=== PATIENT | female | born 1975 | race Caucasian/White ===

== ENCOUNTER 2021-01-05 16:11 | Emergency (ER) | payer OTHER, SELFPAY ==
[2021-01-05 16:24] VITALS: BP 125/71; PULSE 111; RESP 18; TEMP 37.9; O2SAT 98
--- NOTE | 2021-01-05 16:57 | ED.GENADULT ---
HPI - General Adult General Chief complaint: Upper Respiratory Infection Stated complaint: Sore Throat, burning inside of nose Time Seen by Provider: 01/05/21 16:36 Source: patient and RN notes reviewed Mode of arrival: ambulatory Limitations: no limitations History of Present Illness HPI narrative: Patient presents today complaining of an intermittent dry cough, intermittent sore throat with postnasal drainage, and burning inside her nose. The cough is worse when she is laying down to sleep. The burning and soreness in her throat is worse when she swallows. Patient also had a migraine yesterday that was helped with Excedrin. Patient called her PCP, who called her in some antibiotics for presumed strep throat. He also told her to come to the [facility] for rapid COVID-19 test and rapid strep test. She had not been vaccinated against COVID-19. States several people at her work have been sick with nonspecific illnesses. MD complaint: cough, sore throat Related Data Home Medications Medication Instructions Recorded Confirmed colesevelam 625 mg PO TID 01/05/21 01/05/21 norethindrone-ethin estradiol 1 tablet PO DAILY 01/05/21 01/05/21 [Nortrel 1/35 (28)] omeprazole 20 mg PO BID 01/05/21 01/05/21 Allergies Allergy/AdvReac Type Severity Reaction Status Date / Time PAIN MEDS Allergy Rash Uncoded 01/05/21 16:41 Review of Systems Review of Systems: Narrative: CONSTITUTIONAL: Denies body aches, fever, chills, or sweats. EYES: Denies visual changes, redness, or discharge. ENT: Denies rhinorrhea, congestion, or otalgia.+ Sore throat, postnasal drip, burning inside the nose CARDIOVASCULAR: Denies chest pain, palpitations, or edema. RESPIRATORY: Denies dyspnea.+ Dry cough GASTROINTESTINAL: Denies abdominal pain, nausea, vomiting, or diarrhea. GENITOURINARY: Denies dysuria or hematuria. SKIN: Denies rash, itching, or wounds. MUSCULOSKELETAL: Denies back pain, joint pain, or myalgia. NEUROLOGIC: Denies numbness, tingling, or weakness.+headache?resolved PSYCH: Denies depression or anxiety. PMFSH Comments At time of signature, I have reviewed and agree with nursing past medical, surgical, social and family history unless otherwise noted. Please see nursing chart for further information. There is no relevant family history pertinent to the presenting complaint Exam Narrative: Exam Narrative: GENERAL: Well-appearing, well-nourished, and in no acute distress. HEAD: Normocephalic, atraumatic. EYES: EOMI. No redness or drainage. Conjunctivae normal. ENT: Mucous membranes pink and moist. Nares clear. No rhinorrhea. TMs normal bilaterally. Throat normal. Uvula midline. NECK: Normal AROM. Supple. No lymphadenopathy. CHEST: No respiratory distress. Clear to auscultation. HEART: Regular rate and rhythm. No murmur appreciated. Normal peripheral pulses. EXTREMITIES: Normal range of motion. No edema. SKIN: Warm, dry, no rash. Capillary refill normal. Normal skin turgor. NEURO: No focal deficits. Alert and oriented x3. Gait steady. PSYCH: Normal affect. No signs of depression or anxiety. Course Course Emergency Course: COVID-19 PCR swab obtained. Vital Signs Vital signs: Vital Signs Temperature 100.2 F H 01/05/21 16:24 Pulse Rate 111 H 01/05/21 16:24 Respiratory Rate 18 01/05/21 16:24 Blood Pressure 125/71 01/05/21 16:24 Pulse Oximetry 98 01/05/21 16:24 Temperature 99.4 F 01/05/21 17:07 Pulse Rate 111 H 01/05/21 16:24 Respiratory Rate 18 01/05/21 16:24 Blood Pressure 125/71 01/05/21 16:24 Pulse Oximetry 98 01/05/21 16:24 Reviewed. Pt has been instructed to follow up with her PCP regarding her elevated blood pressure today. Medical Decision Making Differential Diagnosis Differential Diagnosis: URI, strep throat, rhinitis, sinusitis, viral syndrome, bronchitis, COVID-19 Vital Signs Vital Signs: Vital Signs Temperature 100.2 F H 01/05/21 16:24 Pulse Rate 111 H 01/05/21 16
[2021-01-05 17:07] VITALS: TEMP 37.4
[2021-01-06 19:08] LABS: SARS-CoV-2 RNA PCR Negative
== END 2021-01-05 17:07 | disposition home or self-care (01) ==
PROVIDERS: Emergency Provider Nurse Practitioner; PCP Physician Assistant
DX: J06.9 Acute upper respiratory infection, unspecified (principal); Z20.822 Contact with and (suspected) exposure to COVID-19; N80.9 Endometriosis, unspecified
CPT/HCPCS: 87081; 87880; 99213; C9803; G0463; U0003; U0005

== ENCOUNTER 2021-12-20 17:57 | Emergency (ER) | payer OTHER, SELFPAY ==
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
[2021-12-20 18:08] VITALS: BP 113/65; PULSE 65; RESP 16; TEMP 36.5; O2SAT 98
[2021-12-20 19:30] LABS: Basophils Absolute Auto 0.1 K/mm3 (0.0-0.1); Eosinophils Absolute Auto 0.3 K/mm3 (0-0.3); Eosinophils Percent Auto 3.2 % (0-4.4); Hemoglobin 12.7 g/dL (12.0-15.0); Immature Granulocyte Absolute 0.02 K/mm3 (0.00-0.031); Immature Granulocyte Percent A 0.3 % (0-0.5); Lymphocytes Absolute Auto 2.93 K/mm3 (0.9-3.2); Lymphocytes Percent Auto 37.8 % (18.3-44.2); Mean Corpuscular HGB Conc 35.3 g/dl (32-36); Mean Corpuscular Hemoglobin 31.5 pg (26-34); Mean Corpuscular Volume 89.3 fl (80-100); Mean Platelet Volume 10.6 fl (7.4-10.4); Monocytes Absolute Auto 0.6 K/mm3 (0.1-0.6); Monocytes Percent Auto 7.5 % (2.6-8.5); Neutrophils Absolute Auto 3.9 K/mm3 (1.3-6.7); Neutrophils Percent Auto 50.2 % (45.5-73.1); Platelet Count Result 198 k/mm3 (150-375); Red Blood Count 4.03 M/mm3 (4.2-5.4); Red Cell Distribution Width 13.1 % (11.5-14.5); White Blood Count 7.8 K/mm3 (4.5-10.0)
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
[2021-12-20 19:40] LABS: Alanine Aminotransferase 131 U/L (6-35); Albumin Level 3.9 g/dL (3.5-5.1); Alkaline Phosphatase 77 U/L (38-126); Anion Gap 4 mmol/L (8-16); Aspartate Amino Transferase 67 U/L (14-36); Bilirubin,Total 0.1 mg/dL (0.2-1.3); Blood Urea Nitrogen 9 mg/dL (7-17); Calcium 8.3 mg/dL (8.4-10.2); Carbon Dioxide 26 mmol/L (22-30); Chloride 107 mmol/L (98-107); Estimated Glomerular Filt Rate > 60; Glucose 96 mg/dL (65-110); Potassium 3.5 mmol/L (3.4-5.0); Sodium 137 mmol/L (137-145)
[2021-12-20 21:15] VITALS: BP 122/64; PULSE 76; RESP 18; O2SAT 99
== END 2021-12-20 21:16 | disposition home or self-care (01) ==
PROVIDERS: Physician Assistant; Emergency Provider Emergency Medicine; PCP Physician Assistant
DX: S39.91XA Unspecified injury of abdomen, initial encounter (principal); R10.11 Right upper quadrant pain; R74.01 Elevation of levels of liver transaminase levels; K21.9 Gastro-esophageal reflux disease without esophagitis; Z86.718 Personal history of other venous thrombosis and embolism; Z90.5 Acquired absence of kidney; Y04.2XXA Assault by strike against or bumped into by another person, initial encounter; Y93.F2 Activity, caregiving, lifting
CPT/HCPCS: 36415; 71046; 71100; 74177; 80053; 81025; 85025; 99284; Q9967

== ENCOUNTER 2022-01-30 16:46 | Emergency (ER) | payer OTHER, SELFPAY ==
--- NOTE | ~2022-01-30 | CT_ITS ---
EXAMINATION: CTA chest PE protocol DATE: 01/30/2022 19:04 CDT INDICATION: Left-sided chest pain TECHNIQUE: Computed tomographic angiography (CTA) of the chest was performed with 100 mL Omnipaque-35 0 intravenous contrast. The dose-length product was 156.25 mGy-cm. Maximum intensity projection 3D-re constructions of the aorta and other arteries were constructed by the technologist on a separate work station. COMPARISON: Chest x-ray dated 01/30/2022. FINDINGS: Study is technically adequate without evidence for pulmonary embolism. No evidence for aort ic aneurysm or dissection. No significant pleural or pericardial effusion. There is a partially visua lized right renal cyst. Status post cholecystectomy. No endobronchial lesions. No focal airspace dise ase. No pneumothorax. No pulmonary nodules or masses. No acute osseous abnormality. IMPRESSION: 1. No acute cardiopulmonary disease. No evidence for pulmonary embolism. Reviewed, dictated and finalized at location A.
--- NOTE | ~2022-01-30 | XR_ITS ---
EXAMINATION: XR chest 2V 01/30/2022 17:19 INDICATION: Left-sided chest pain PROCEDURE: 2 view chest COMPARISON: Comparison to multiple prior studies sequentially, with oldest reviewed study dated 09/2021. FINDINGS: The lungs are clear. The cardiomediastinal silhouette is within normal limits. There are no pleural effusions. There is no pneumothorax suspected. IMPRESSION: 1: NO ACUTE CARDIOPULMONARY DISEASE. Reviewed, dictated and finalized at location A.
[2022-01-30 16:51] VITALS: BP 117/69; PULSE 81; RESP 14; TEMP 36.9; O2SAT 98
--- NOTE | 2022-01-30 16:51 | ECG_ITS ---
Measurements Intervals [place] Rate: 76 P: 56 IA: 150 QRS: 2 QRSD: 80 T: 46 QT: 360 QTc: 406 Interpretive Statements SINUS RHYTHM WITH SINUS ARRHYTHMIA NORMAL ELECTROCARDIOGRAM NO PREVIOUS ECG AVAILABLE FOR COMPARISON Electronically Signed On 01-31-2022 13:52:53 CDT by Romeo Hammond M.D.
--- NOTE | 2022-01-30 17:06 | ED.CHESTPAIN ---
HPI - Chest Pain General Chief Complaint: Chest Pain <ANA Traore Last Filed: 01/30/22 21:03> Stated Complaint: CP, left arm numbness, dizzy <ANA Traore Last Filed: 01/30/22 21:03> Time Seen by Provider: 01/30/22 17:03 <ANA Traore Last Filed: 01/30/22 21:03> Source: patient <ANA Traore Last Filed: 01/30/22 21:03> Mode of arrival: ambulatory <ANA Traore Last Filed: 01/30/22 21:03> Limitations: no limitations <ANA Traore Last Filed: 01/30/22 21:03> History of Present Illness HPI narrative: This is a 46 year old female that presents to the ER for chest pain ongoing over the last couple of hours. Worse with deep breathing. Associated with lightheadedness, shortness of breath and tingling in the left arm. Denies fever. <ANA Traore Last Filed: 01/30/22 21:03> Related Data Home Medications: Home Medications Medication Instructions Recorded Confirmed colesevelam 625 mg tablet 625 mg PO TID 01/05/21 11/30/21 norethindrone 1 mg-ethinyl 1 tablet PO DAILY 01/05/21 11/30/21 estradiol 35 mcg tablet (Nortrel) omeprazole 20 mg capsule,delayed 20 mg PO BID 01/05/21 11/30/21 release <ANA Traore Last Filed: 01/30/22 21:03> Allergies/Adverse Reactions: Allergies Allergy/AdvReac Type Severity Reaction Status Date / Time PAIN MEDS Allergy Mild Hives Uncoded 01/30/22 16:57 PAIN MEDS Allergy Rash Uncoded 01/30/22 16:57 <ANA Traore Last Filed: 01/30/22 21:03> Review of Systems Review of Systems: CONSTITUTIONAL: Denies fever CARDIOVASCULAR: Reports chest pain, and edema. RESPIRATORY: Reports dyspnea. <ANA Traore Filed: 01/30/22 21:03> All systems reviewed & are unremarkable except as noted in HPI and below <Indu Bishop PA-C - Last Filed: 01/30/22 21:03> [facility] Past Medical History Medical History: Medical History (Updated 01/30/22 @ 21:03 by Indu Bishop PA-C) Abnormality of heart beat Chronic headaches GERD (gastroesophageal reflux disease) Hair loss History of adverse reaction to anesthesia Hx of deep venous thrombosis 2020 Mitral valve regurgitation SOB (shortness of breath) Vision changes Wears glasses <Indu Bishop PA-C - Last Filed: 01/30/22 21:03> Surgical History Surgical History: Surgical History (Updated 12/16/21 @ 11:08 by Grecia Jane, RT(R)) History of cholecystectomy History of hernia repair History of partial nephrectomy Hx of arthroscopy of left knee 1999 <Indu Bishop PA-C - Last Filed: 01/30/22 21:03> Family History Family History: Family History (Updated 12/16/21 @ 11:09 by Grecia Jane, RT(R)) Other Arthritis Asthma Diabetes mellitus Heart disease High cholesterol Hypertension <Indu Bishop PA-C - Last Filed: 01/30/22 21:03> Social History Social History: Social History (Updated 11/29/21 @ 09:14 by Lizzette Allison MA) Smoking status: Never smoker Substance use: never Gender identity (if verbalized by the patient): Female <Indu Bishop PA-C - Last Filed: 01/30/22 21:03> Exam Narrative: GENERAL: Well-appearing, well-nourished, and in no acute distress. HEAD: Normocephalic, atraumatic. EYES: EOMI. ENT: Mucous membranes moist. Oropharynx without tonsillar hypertrophy exudate or other lesions. Bilateral TMs pearly pappas non-bulging NECK: Supple. No adenopathy or masses. CHEST: Clear to auscultation. No respiratory distress. No wheezes rales or rhonchi HEART: Regular rate and rhythm. No murmur heard. Normal peripheral pulses. EXTREMITIES: Normal range of motion. Mild non-pitting edema to the left lower extremity. Normal DP pulses SKIN: Warm, dry, no rash. NEURO: No focal deficits. Alert and oriented x3. 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
[2022-01-30 17:19] LABS: Basophils Absolute Auto 0.1 K/mm3 (0.0-0.1); Basophils Percent Auto 0.9 % (0.2-1.2); Eosinophils Absolute Auto 0.5 K/mm3 (0-0.3); Eosinophils Percent Auto 4.9 % (0-4.4); Hemoglobin 13.2 g/dL (12.0-15.0); Immature Granulocyte Absolute 0.04 K/mm3 (0.00-0.031); Immature Granulocyte Percent A 0.4 % (0-0.5); Lymphocytes Absolute Auto 2.99 K/mm3 (0.9-3.2); Lymphocytes Percent Auto 28.3 % (18.3-44.2); Mean Corpuscular HGB Conc 34.7 g/dl (32-36); Mean Corpuscular Hemoglobin 31.3 pg (26-34); Mean Platelet Volume 10.3 fl (7.4-10.4); Monocytes Absolute Auto 0.6 K/mm3 (0.1-0.6); Monocytes Percent Auto 6.1 % (2.6-8.5); Neutrophils Absolute Auto 6.3 K/mm3 (1.3-6.7); Neutrophils Percent Auto 59.4 % (45.5-73.1); Platelet Count Result 217 k/mm3 (150-375); Red Blood Count 4.22 M/mm3 (4.2-5.4); Red Cell Distribution Width 13.1 % (11.5-14.5); White Blood Count 10.6 K/mm3 (4.5-10.0)
[2022-01-30 17:29] LABS: Prothrombin Time 13.2 Seconds (11.1-14.7)
[2022-01-30 17:30] LABS: Partial Thromboplastin Time 26.5 SECONDS (22.3-36.8)
[2022-01-30 17:31] LABS: Alanine Aminotransferase 35 U/L (6-35); Albumin Level 4.2 g/dL (3.5-5.1); Alkaline Phosphatase 73 U/L (38-126); Anion Gap 7 mmol/L (8-16); Aspartate Amino Transferase 31 U/L (14-36); Bilirubin,Total 0.3 mg/dL (0.2-1.3); Blood Urea Nitrogen 12 mg/dL (7-17); Calcium 8.7 mg/dL (8.4-10.2); Carbon Dioxide 26 mmol/L (22-30); Chloride 103 mmol/L (98-107); Estimated CRCL calculation 67 ml/min; Estimated Glomerular Filt Rate > 60; Glucose 119 mg/dL (65-110); Lipase 221 U/L (23-300); Potassium 3.4 mmol/L (3.4-5.0); Sodium 136 mmol/L (137-145)
[2022-01-30 17:32] LABS: D Dimer 0.33 ug/mL (<0.48)
[2022-01-30 17:40] LABS: NT Pro B Type Natriuretic Pept 35 pg/mL (5-100)
[2022-01-30 17:43] LABS: Troponin I < 0.012 ng/mL (0.000-0.034)
[2022-01-30] MEDS: SODIUM CHLORIDE 0.9% IV 1,000 ML 999 ML IV CONT (17:49)
[2022-01-30] MEDS: ASPIRIN 81 MG CHEWABLE TABLET 324 MG PO (17:49)
[2022-01-30 17:50] VITALS: BP 111/64; PULSE 75; RESP 18; O2SAT 98
[2022-01-30 19:22] VITALS: BP 118/71; PULSE 75; RESP 18; O2SAT 97
[2022-01-30 20:39] LABS: Troponin I < 0.012 ng/mL (0.000-0.034)
[2022-01-30 20:56] LABS: SARS-CoV-2 RNA PCR Negative
[2022-01-30 20:58] VITALS: BP 114/86; PULSE 71; RESP 16; O2SAT 98
[2022-01-30] MEDS: ENOXAPARIN 60 MG/0.6 ML SYRINGE 50 MG SUB-Q (20:59)
== END 2022-01-30 21:15 | disposition home or self-care (01) ==
PROVIDERS: Physician Assistant; Emergency Provider Preventive Medicine Aerospace Medicine; PCP Physician Assistant
DX: R07.9 Chest pain, unspecified (principal); Z20.822 Contact with and (suspected) exposure to COVID-19; I34.0 Nonrheumatic mitral (valve) insufficiency; K21.9 Gastro-esophageal reflux disease without esophagitis; Z86.718 Personal history of other venous thrombosis and embolism; Z90.5 Acquired absence of kidney
CPT/HCPCS: 36415; 71046; 71275; 80053; 83690; 83880; 84484; 85025; 85380; 85610; 85730; 93005; 96360; 96372; 99284; A9270; C9803; J1650; J7030; Q9967; U0003; U0005

== ENCOUNTER 2022-01-31 07:20 | Outpatient (CLI) | payer OTHER, SELFPAY ==
--- NOTE | ~2022-01-31 | US_ITS ---
EXAMINATION:US venous doppler LE LT INDICATION:Left lower extremity swelling TECHNIQUE: Multiple grayscale, color flow and Doppler images of the left lower extremity deep venous systems were obtained and reviewed. COMPARISON:No prior studies for comparison. FINDINGS: The common femoral, superficial femoral and popliteal veins demonstrate normal respiratory variation, augmentation and compressibility. Color flow is also seen within the posterior tibial, pe roneal, greater saphenous and profunda veins. IMPRESSION: 1: No lower extremity deep venous thrombosis. Reviewed, dictated and finalized at location B.
== END 2022-01-31 07:21 | disposition home or self-care (01) ==
PROVIDERS: PCP Physician Assistant; Visit Provider Physician Assistant
DX: Z86.718 Personal history of other venous thrombosis and embolism (principal)
CPT/HCPCS: 93971

== ENCOUNTER 2022-03-21 12:38 | Outpatient (CLI) | payer OTHER, SELFPAY ==
--- NOTE | ~2022-03-21 | US_ITS ---
EXAMINATION:US venous doppler LE LT INDICATION:History of DVT. Left leg swelling. TECHNIQUE: Multiple grayscale, color flow and Doppler images of the left lower extremity deep venous systems were obtained and reviewed. COMPARISON:Ultrasound dated 01/31/2022 FINDINGS: The common femoral, superficial femoral and popliteal veins demonstrate normal respiratory variation, augmentation and compressibility. Color flow is also seen within the posterior tibial, pe roneal, greater saphenous and profunda veins. IMPRESSION: 1: No lower extremity deep venous thrombosis. Reviewed, dictated and finalized at location A.
== END 2022-03-21 12:39 | disposition home or self-care (01) ==
LOC: ANHIMG 12:42
PROVIDERS: PCP Physician Assistant; Visit Provider Physician Assistant
DX: I82.409 Acute embolism and thrombosis of unspecified deep veins of unspecified lower extremity (principal)
CPT/HCPCS: 93971

== ENCOUNTER 2022-05-05 04:32 | Emergency (ER) | payer OTHER, SELFPAY ==
[2022-05-05] VITALS (7 sets, daily range): BP systolic 95–109; BP diastolic 50–73; PULSE 66–85; RESP 15–18; TEMP 36.8; O2SAT 99
--- NOTE | ~2022-05-05 | US_ITS ---
EXAMINATION: US venous doppler [facility] DATE: 05/05/2022 07:48 INDICATION: Left lower limb pain and swelling. TECHNIQUE: Grayscale ultrasound images without and with compression and Doppler ultrasound images of the left lower extremity veins were obtained. COMPARISON: Ultrasound 03/21/2022 FINDINGS: The visualized portions of left common femoral vein, profunda (deep) femoral vein, femoral vein, popl iteal vein, peroneal veins, posterior tibial veins, and greater saphenous vein outflow are patent. IMPRESSION: 1. No deep venous thrombosis. Reviewed, dictated and finalized at location A. CHANGER
--- NOTE | 2022-05-05 05:01 | ECG_ITS ---
Measurements Intervals [place] Rate: 80 P: 52 UT: 152 QRS: -2 QRSD: 88 T: 36 QT: 371 QTc: 429 Interpretive Statements SINUS RHYTHM RSR' IN V1 OR V2, PROBABLY NORMAL VARIANT BORDERLINE ECG COMPARED TO ECG 01/30/2022 16:55:10 NO SIGNIFICANT CHANGES Electronically Signed On 05-05-2022 6:49:01 MANUFACTURING MAINTENANCE MECHANIC by Bebeto Beal D.O.
[2022-05-05 05:16] LABS: Appearance Urine Clear (Clear); Bilirubin Urine Negative (Negative); Blood Urine 2+ (Negative); Color Urine Yellow (Yellow); Glucose Urine UA Negative (Negative); Ketones Urine Trace mg/dL (Negative); Leukocyte Esterase Ur Negative LEU/UL (Negative); Nitrate Urine Negative (Negative); Protein Urine Negative (Negative); Specific Grav Ur >= 1.030 (1.001-1.035); Urobilinogen Urine 0.2 mg/dL (<2.0); pH Urine 5.5 (5.0-9.0)
[2022-05-05 05:18] LABS: Basophils Absolute Auto 0.1 K/mm3 (0.0-0.1); Basophils Percent Auto 1.1 % (0.2-1.2); Eosinophils Absolute Auto 0.4 K/mm3 (0-0.3); Eosinophils Percent Auto 4.1 % (0-4.4); Hematocrit 36.1 % (37.0-47.0); Hemoglobin 12.5 g/dL (12.0-15.0); Immature Granulocyte Absolute 0.03 K/mm3 (0.00-0.031); Immature Granulocyte Percent A 0.3 % (0-0.5); Lymphocytes Percent Auto 34.9 % (18.3-44.2); Mean Corpuscular HGB Conc 34.6 g/dl (32-36); Mean Corpuscular Hemoglobin 31.7 pg (26-34); Mean Corpuscular Volume 91.6 fl (80-100); Mean Platelet Volume 10.6 fl (7.4-10.4); Monocytes Absolute Auto 0.6 K/mm3 (0.1-0.6); Monocytes Percent Auto 6.2 % (2.6-8.5); Neutrophils Absolute Auto 4.9 K/mm3 (1.3-6.7); Neutrophils Percent Auto 53.4 % (45.5-73.1); Platelet Count Result 226 k/mm3 (150-375); Red Blood Count 3.94 M/mm3 (4.2-5.4); Red Cell Distribution Width 12.7 % (11.5-14.5); White Blood Count 9.2 K/mm3 (4.5-10.0)
[2022-05-05 05:20] LABS: Mucus Urine Rare /lpf; RBC Urine 0-2 /hpf (0-2); Squamous Epithelial Cell Urine Rare /hpf (Few); WBC Urine 0-3 /hpf
--- NOTE | 2022-05-05 05:20 | ED.GENADULT ---
HPI - General Adult General Chief complaint: Extremity Problem,Nontraumatic <Adin Escobar MD - Last Filed: 05/05/22 05:21> Stated complaint: dizziness,lt leg pain <Adin Escobar MD - Last Filed: 05/05/22 05:21> Time Seen by Provider: 05/05/22 04:47 <Adin Escobar MD - Last Filed: 05/05/22 05:21> History of Present Illness HPI narrative: Patient 46-year-old female who presents the emergency department with chief complaint of left leg discomfort. Patient states that she has prior history of a DVT after she had COVID was treated with oral anticoagulants and has been off of those for some time patient states she has noticed has been having pain in her left lower extremity worsening IT band and also in the lower calf. The patient states that she is concerned that it may be a little bit more swollen than normal the patient reports that also she has been a little lightheaded and reports that she has had some heavy periods. <Adin Escobar MD - Last Filed: 05/05/22 05:21> Related Data Home medications: Home Medications Medication Instructions Recorded Confirmed colesevelam 625 mg tablet 625 mg PO TID 01/05/21 11/30/21 norethindrone 1 mg-ethinyl 1 tablet PO DAILY 01/05/21 11/30/21 estradiol 35 mcg tablet (Nortrel) omeprazole 20 mg capsule,delayed 20 mg PO BID 01/05/21 11/30/21 release <Adin Escobar MD - Last Filed: 05/05/22 05:21> Allergies/adverse reactions: Allergies Allergy/AdvReac Type Severity Reaction Status Date / Time PAIN MEDS Allergy Mild Hives Uncoded 05/05/22 04:52 PAIN MEDS Allergy Rash Uncoded 05/05/22 04:52 <Adin Escobar MD - Last Filed: 05/05/22 05:21> Review of Systems Review of Systems: A 10 system review of systems was completed on the patient and is negative except for what is stated in the HPI. Nursing and ancillary documentation was reviewed. <Adin Escobar MD - Last Filed: 05/05/22 05:21> [facility] Past Medical History Medical History: Medical History Abnormality of heart beat Chronic headaches GERD (gastroesophageal reflux disease) Hair loss History of adverse reaction to anesthesia Hx of deep venous thrombosis 2020 Mitral valve regurgitation SOB (shortness of breath) Vision changes Wears glasses <Adin Escobar MD - Last Filed: 05/05/22 05:21> Surgical History Surgical History: Surgical History History of cholecystectomy History of hernia repair History of partial nephrectomy Hx of arthroscopy of left knee 1999 <Adin Escobar MD - Last Filed: 05/05/22 05:21> Family History Family History: Family History Other Arthritis Asthma Diabetes mellitus Heart disease High cholesterol Hypertension <Adin Escobar MD - Last Filed: 05/05/22 05:21> Social History Social History: Social History Smoking status: Never smoker Substance use: never Gender identity (if verbalized by the patient): Female <Adin Escobar MD - Last Filed: 05/05/22 05:21> Exam Narrative: GENERAL: Well-appearing, well-nourished, and in no acute distress. HEAD: Normocephalic, atraumatic. EYES: PERRLA and EOMI. ENT: Nares clear, no rhinorrhea or epistaxis. Mucous membranes moist. NECK: Supple. CHEST: Clear to auscultation. No respiratory distress. HEART: Regular rate and rhythm. No murmur heard. Normal peripheral pulses. ABDOMEN: Soft, nontender, nondistended, normal active bowel sounds. EXTREMITIES: Normal range of motion. No edema. There is tenderness to palpation in the left calf and the left lateral thigh. SKIN: Warm, dry, no rash. NEURO: No focal deficits. Alert
[2022-05-05 05:25] LABS: Alanine Aminotransferase 22 U/L (6-35); Alkaline Phosphatase 75 U/L (38-126); Anion Gap 8 mmol/L (8-16); Aspartate Amino Transferase 29 U/L (14-36); Bilirubin,Total 0.3 mg/dL (0.2-1.3); Blood Urea Nitrogen 12 mg/dL (7-17); Calcium 8.6 mg/dL (8.4-10.2); Carbon Dioxide 24 mmol/L (22-30); Chloride 105 mmol/L (98-107); Estimated Glomerular Filt Rate > 60; Glucose 116 mg/dL (65-110); INR 1.1; Magnesium 1.9 mg/dL (1.6-2.3); Potassium 3.6 mmol/L (3.4-5.0); Prothrombin Time 13.5 Seconds (11.1-14.7); Sodium 137 mmol/L (137-145)
[2022-05-05 05:26] LABS: Partial Thromboplastin Time 28.1 SECONDS (22.3-36.8)
[2022-05-05 05:32] LABS: Add Urine Microscopic? YES
[2022-05-05 05:50] LABS: D Dimer 0.48 ug/mL (<0.48)
== END 2022-05-05 09:45 | disposition home or self-care (01) ==
PROVIDERS: Emergency Medicine; Emergency Provider Emergency Medicine
DX: M79.605 Pain in left leg (principal); I34.0 Nonrheumatic mitral (valve) insufficiency; K21.9 Gastro-esophageal reflux disease without esophagitis; Z90.5 Acquired absence of kidney; Z86.718 Personal history of other venous thrombosis and embolism; Z86.16 Personal history of COVID-19; R94.31 Abnormal electrocardiogram [ECG] [EKG]
CPT/HCPCS: 36415; 80053; 81001; 81025; 83735; 85025; 85380; 85610; 85730; 93005; 93971; 99284

== ENCOUNTER 2023-10-26 18:01 | Emergency (ER) | payer OTHER, SELFPAY ==
--- NOTE | 2023-10-26 18:05 | ED.URI ---
HPI - URI/Sore Throat General Chief Complaint: Upper Respiratory Infection Stated Complaint: upper respiratory/sinus Time Seen by Provider: 10/26/23 18:04 Source: patient Mode of arrival: ambulatory Limitations: no limitations History of Present Illness HPI Narrative: Patient is a 48-year-old female that presents with 5 days of congestion, sinus pressure and ear pain. Denies any fever, chills, nausea, vomiting, diarrhea. Patient states she has CT scan scheduled due to frequent infections. Was been taking Mucinex and Zicam. Related Data Home Medications Medication Instructions Recorded Confirmed colesevelam 625 mg tablet 625 mg PO TID 01/05/21 10/26/23 norethindrone 1 mg-ethinyl 1 tablet PO DAILY 01/05/21 10/26/23 estradiol 35 mcg tablet (Nortrel) omeprazole 20 mg capsule,delayed 20 mg PO BID 01/05/21 10/26/23 release ubrogepant 100 mg tablet (Ubrelvy) 100 mg PO DAILY PRN Migraine 10/26/23 10/26/23 Headache Allergies Allergy/AdvReac Type Severity Reaction Status Date / Time PAIN MEDS Allergy Mild Hives Uncoded 06/03/22 09:45 PAIN MEDS Allergy Rash Uncoded 06/03/22 09:45 Review of Systems Review of Systems: All systems reviewed & are unremarkable except as noted in HPI and below Constitutional: Constitutional: Denies body ache(s), Denies chills, Denies fatigue, Denies fever(s), Denies headache(s), Denies malaise and Denies weakness Eyes: Eyes: Denies blurry vision, Denies itchy eyes and Denies loss of vision ENT: Denies otalgia, Denies headache(s), Reports nasal congestion, Denies sinus pain and Denies sore throat Cardiovascular: Cardiovascular: Denies chest pain, Denies irregular heart rhythm and Denies dyspnea Respiratory: Respiratory: Reports cough and Denies dyspnea Gastrointestinal: Gastrointestinal: Denies abdominal pain, Denies diarrhea, Denies nausea and Denies vomiting Musculoskeletal: Musculoskeletal: Denies back pain, Denies myalgias and Denies arthralgias Integumentary/Breasts: Skin/Breast: Denies pruritus and Denies rash Neurologic: Denies headache(s), Denies loss of vision and Denies weakness Psychiatric: Psychiatric: Reports no additional psychiatric complaints Endocrine: Endocrine: Denies fatigue Allergic/Immunologic: Allergic/Immunologic: Denies itchy eyes PMFSH Past Medical History Medical History Abnormality of heart beat Chronic headaches GERD (gastroesophageal reflux disease) Hair loss History of adverse reaction to anesthesia Hx of deep venous thrombosis 2020 Mitral valve regurgitation SOB (shortness of breath) Vision changes Wears glasses Surgical History Surgical History History of cholecystectomy History of hernia repair History of partial nephrectomy Hx of arthroscopy of left knee 1999 Family History Family History Other Arthritis Asthma Diabetes mellitus Heart disease High cholesterol Hypertension Social History Social History Smoking status: Never smoker Substance use: never Living arrangements: with family Gender identity (if verbalized by the patient): Female Comments At time of signature, agree with nursing past medical, surgical, social and family history. There is no relevant family history pertinent to the presenting complaint. Exam Const: General: cooperative, healthy appearing, comfortable, no acute distress and well nourished Nutritional Appearance: well nourished Orientation/consciousness: patient oriented x3 Limitations: no limitations HENMT: Head: normal to inspection, normocephalic and atraumatic Ears: hearing grossly normal bilaterally, external ears normal, TM normal on the right, EAC's normal, no periauricular adenopathy and TM abnormal bulging on the left and erythematous on the le
[2023-10-26 18:14] VITALS: BP 122/70; PULSE 65; RESP 16; TEMP 37.1; O2SAT 98
[2023-10-26 18:19] VITALS: BP 122/70; PULSE 65; RESP 16; TEMP 37.1; O2SAT 98
== END 2023-10-26 18:44 | disposition home or self-care (01) ==
PROVIDERS: Emergency Provider Nurse Practitioner Family; PCP Physician Assistant
DX: H66.002 Acute suppurative otitis media without spontaneous rupture of ear drum, left ear (principal); K21.9 Gastro-esophageal reflux disease without esophagitis; Z86.718 Personal history of other venous thrombosis and embolism
CPT/HCPCS: 99213; G0463

== ENCOUNTER 2023-12-20 14:03 | Outpatient (CLI) | payer OTHER, SELFPAY ==
--- NOTE | ~2023-12-20 | US_ITS ---
EXAMINATION: US venous doppler LE RT DATE: 12/20/2023 14:55 INDICATION: Right lower limb pain. Other specified soft tissue disorders. TECHNIQUE: Grayscale ultrasound images without and with compression and Doppler ultrasound images of the right lower extremity veins were obtained. COMPARISON: None. FINDINGS: The visualized portions of right common femoral vein, profunda (deep) femoral vein, femoral vein, pop liteal vein, peroneal veins, posterior tibial veins, and greater saphenous vein outflow are patent. IMPRESSION: 1. No deep venous thrombosis. Reviewed, dictated and finalized at location A.
== END 2023-12-20 14:04 | disposition home or self-care (01) ==
PROVIDERS: PCP Physician Assistant; Visit Provider Physician Assistant
DX: M79.89 Other specified soft tissue disorders (principal)
CPT/HCPCS: 93971

== ENCOUNTER 2024-02-27 08:02 | Emergency (ER) | payer OTHER, SELFPAY ==
--- NOTE | ~2024-02-27 | XR_ITS ---
XR chest 2V Ordering provider: Carey Law NP History: 48 years Female with . cough +COVID positive on Monday . Comparison: January 30, 2022 FINDINGS: MEDIASTINUM: The cardiac silhouette is not enlarged. LUNGS: No infiltrates, effusions or pneumothorax. OTHER: No free air under the diaphragm. IMPRESSION: No acute cardiopulmonary pathology. Reviewed, dictated and finalized at location A.
[2024-02-27 08:12] VITALS: BP 132/71; PULSE 65; RESP 18; TEMP 37.6; O2SAT 98
--- NOTE | 2024-02-27 08:15 | ED.URI ---
HPI - URI/Sore Throat General Chief Complaint: Upper Respiratory Infection Stated Complaint: Cough/Chest Pain Time Seen by Provider: 02/27/24 08:20 Source: patient, RN notes reviewed and old records reviewed Mode of arrival: ambulatory Limitations: no limitations History of Present Illness HPI Narrative: 48-year-old female who presents to [facility] with complaints of testing positve for COVID 4 days ago did call her doctor and was prescribed a Zpack and also a medrol dose pack which she has been taking along with Zicam, Mucinex and Vitamin C. Patient states concern for pneumonia, reports harsh cough and pain to upper chest with cough, states that she tastes blood in her mouth and also has nasal congestion and headache. MD elicited complaint: cough, rhinorrhea, nasal congestion and other (chest pain with cough, headache) Onset (ago): day(s) (5) Severity: moderate Able to tolerate fluids by mouth: Yes Treatments prior to arrival: other (Mucinex,Zycam, and Vitamin C, Medrol dose pack and Zpack) Related Data Home Medications Medication Instructions Recorded Confirmed colesevelam 625 mg tablet 625 mg PO TID 01/05/21 10/26/23 norethindrone 1 mg-ethinyl 1 tablet PO DAILY 01/05/21 10/26/23 estradiol 35 mcg tablet (Nortrel) omeprazole 20 mg capsule,delayed 20 mg PO BID 01/05/21 10/26/23 release ubrogepant 100 mg tablet (Ubrelvy) 100 mg PO DAILY PRN Migraine 10/26/23 10/26/23 Headache venlafaxine 37.5 mg mg PO 02/27/24 capsule,extended release 24 hr Allergies Allergy/AdvReac Type Severity Reaction Status Date / Time PAIN MEDS Allergy Mild Hives Uncoded 06/03/22 09:45 PAIN MEDS Allergy Rash Uncoded 06/03/22 09:45 Review of Systems Review of Systems: CONSTITUTIONAL: Reports malaise, chills, sweats, or fever. EYES: Denies visual changes, redness, or discharge. ENT: Reports rhinorrhea, congestion, sinus pain, no otalgia and scratchy sore throat. CARDIOVASCULAR: reports chest pain with cough,no palpitations, or edema. RESPIRATORY: Reports cough.? Denies dyspnea.states chest discomfort with cough. GASTROINTESTINAL: Denies abdominal pain, nausea, vomiting, diarrhea SKIN: Denies rash or itching. MUSCULOSKELETAL: Reports some myalgia. NEUROLOGIC: Reports headache. All systems reviewed & are unremarkable except as noted in HPI and below PMFSH Past Medical History Medical History Abnormality of heart beat Chronic headaches GERD (gastroesophageal reflux disease) Hair loss History of adverse reaction to anesthesia Hx of deep venous thrombosis 2020 Mitral valve regurgitation SOB (shortness of breath) Vision changes Wears glasses Surgical History Surgical History History of cholecystectomy History of hernia repair History of partial nephrectomy Hx of arthroscopy of left knee 1999 Family History Family History Other Arthritis Asthma Diabetes mellitus Heart disease High cholesterol Hypertension Social History Social History Smoking status: Never smoker Substance use: never Living arrangements: with family Gender identity (if verbalized by the patient): Female Comments At time of signature, agree with nursing past medical, surgical, social and family history. There is no relevant family history pertinent to the presenting complaint Exam Narrative: GENERAL: Well-appearing, well-nourished, and in no acute distress. HEAD: Normocephalic EYES: PERRLA, conjunctivae clear ENT: Nares clear, turbinates edematous and erythematous, clear discharge. Mucous membranes moist. TM pearly pappas with dull light reflex bilaterally; no tragal tenderness. Oropharynx erythematous without lesions. Tonsils not enlarged and without exudate, no drooling, no hoarsen
== END 2024-02-27 09:02 | disposition home or self-care (01) ==
PROVIDERS: Emergency Provider Registered Nurse; PCP Physician Assistant
DX: R05.1 Acute cough (principal); M94.0 Chondrocostal junction syndrome [Tietze]; K21.9 Gastro-esophageal reflux disease without esophagitis; I34.0 Nonrheumatic mitral (valve) insufficiency; Z86.718 Personal history of other venous thrombosis and embolism; Z90.5 Acquired absence of kidney
CPT/HCPCS: 71046; 99213; G0463

== ENCOUNTER 2024-02-29 16:16 | Emergency (ER) | payer OTHER, SELFPAY ==
--- NOTE | ~2024-02-29 | XR_ITS ---
XR chest 2V Ordering provider: Venkata Sherman MD History: 48 years Female with . chest pain, covid + . Comparison: February 27, 2024 FINDINGS: MEDIASTINUM: The cardiac silhouette is not enlarged. LUNGS: No infiltrates, effusions or pneumothorax. OTHER: No free air under the diaphragm. IMPRESSION: No acute cardiopulmonary pathology. Reviewed, dictated and finalized at location A.
--- NOTE | 2024-02-29 16:18 | ECG_ITS ---
Test Date: 2024-02-29 16:22:32 Measurements Intervals [place] Rate: 62 P: 50 MT: 134 QRS: 0 QRSD: 86 T: 57 QT: 375 QTc: 381 Interpretive Statements SINUS RHYTHM POSSIBLE LEFT ATRIAL ENLARGEMENT POSSIBLE RIGHT VENTRICULAR CONDUCTION DELAY BASELINE ARTIFACT- I, II, III BORDERLINE ECG No previous ECG available for comparison Electronically Signed On 02-29-2024 16:26:03 CDT by Bebeto Beal D.O.
[2024-02-29 16:29] VITALS: BP 121/62; PULSE 61; RESP 15; TEMP 36.8; O2SAT 100
--- NOTE | 2024-02-29 16:31 | ED.CHESTPAIN ---
HPI - Chest Pain General Chief Complaint: Chest Pain <Indu Bishop PA-C - Last Filed: 03/03/24 14:34> Stated Complaint: chest pain <Indu Bishop PA-C - Last Filed: 03/03/24 14:34> Time Seen by Provider: 02/29/24 16:31 <Indu Bishop PA-C - Last Filed: 03/03/24 14:34> Focused HPI: This is a 48-year-old female that presents to the emergency department for chest pain. Ongoing since yesterday. Reports recently having COVID. GENERAL: Well-appearing, well-nourished, and in no acute distress. HEAD: Normocephalic, atraumatic. CHEST: Clear to auscultation. ?No respiratory distress. HEART: Regular rate and rhythm.? NEURO: ?Alert and oriented x3. Patient screened in triage and initial orders placed.? ?Additional care and disposition to be based upon?diagnostic testing and treatment. <Indu Bishop PA-C - Last Filed: 03/03/24 14:34> Source: patient <Segun Posey PA-C - Last Filed: 03/01/24 02:20> Mode of arrival: ambulatory <ANA Moise Last Filed: 03/01/24 02:20> Limitations: no limitations <ANA Moise Last Filed: 03/01/24 02:20> History of Present Illness HPI narrative: Patient endorses recent COVID diagnosis on Monday. Having chest pain for the past couple of days that is intermittent. No coronary artery disease history or history diabetes. <ANA Moise Last Filed: 03/01/24 02:20> Related Data Home Medications: Home Medications Medication Instructions Recorded Confirmed colesevelam 625 mg tablet 625 mg PO TID 01/05/21 10/26/23 norethindrone 1 mg-ethinyl 1 tablet PO DAILY 01/05/21 10/26/23 estradiol 35 mcg tablet (Nortrel) omeprazole 20 mg capsule,delayed 20 mg PO BID 01/05/21 10/26/23 release ubrogepant 100 mg tablet (Ubrelvy) 100 mg PO DAILY PRN Migraine 10/26/23 10/26/23 Headache venlafaxine 37.5 mg mg PO 02/27/24 capsule,extended release 24 hr <ANA Traore Last Filed: 03/03/24 14:34> Allergies/Adverse Reactions: Allergies Allergy/AdvReac Type Severity Reaction Status Date / Time PAIN MEDS Allergy Mild Hives Uncoded 02/29/24 16:36 PAIN MEDS Allergy Rash Uncoded 02/29/24 16:36 <Indu Bishop PA-C - Last Filed: 03/03/24 14:34> Review of Systems Review of Systems: All systems as dictated in HPI <ANA Moise Last Filed: 03/01/24 02:20> [facility] Past Medical History Medical History: Medical History Abnormality of heart beat Chronic headaches GERD (gastroesophageal reflux disease) Hair loss History of adverse reaction to anesthesia Hx of deep venous thrombosis 2020 Mitral valve regurgitation SOB (shortness of breath) Vision changes Wears glasses <ANA Traore Last Filed: 03/03/24 14:34> Surgical History Surgical History: Surgical History History of cholecystectomy History of hernia repair History of partial nephrectomy Hx of arthroscopy of left knee 1999 <ANA Traore Last Filed: 03/03/24 14:34> Family History Family History: Family History Other Arthritis Asthma Diabetes mellitus Heart disease High cholesterol Hypertension <ANA Traore Last Filed: 03/03/24 14:34> Social History Social History: Social History Smoking status: Never smoker Substance use: never Living arrangements: with family Gender identity (if verbalized by the patient): Female <ANA Traore Last Filed: 03/03/24 14:34> Exam Narrative: GENERAL: Well-appearing, well-nourished, and in no acute distress. HEAD: Normocephalic, atraumatic. EYES: PERRLA and EOMI. ENT: Nares clear, no rhinorrhea or epistaxis. Mucous membranes moist. Oropharynx without tonsillar hypertrop
[2024-02-29 16:32] LABS: Basophils Percent Auto 0.4 % (0.2-1.2); Hematocrit 41.6 % (37.0-47.0); Hemoglobin 13.6 g/dL (12.0-15.0); Immature Granulocyte Absolute 0.06 K/mm3 (0.00-0.031); Immature Granulocyte Percent A 0.6 % (0-0.5); Lymphocytes Absolute Auto 2.44 K/mm3 (0.9-3.2); Lymphocytes Percent Auto 24.7 % (18.3-44.2); Mean Corpuscular HGB Conc 32.7 g/dl (32-36); Mean Corpuscular Hemoglobin 28.2 pg (26-34); Mean Corpuscular Volume 86.1 fl (80-100); Mean Platelet Volume 10.3 fl (7.4-10.4); Monocytes Absolute Auto 0.5 K/mm3 (0.1-0.6); Monocytes Percent Auto 5.2 % (2.6-8.5); Neutrophils Absolute Auto 6.8 K/mm3 (1.3-6.7); Neutrophils Percent Auto 69.1 % (45.5-73.1); Platelet Count Result 305 k/mm3 (150-375); Red Blood Count 4.83 M/mm3 (4.2-5.4); Red Cell Distribution Width 13.8 % (11.5-14.5); White Blood Count 9.9 K/mm3 (4.5-10.0)
[2024-02-29 16:42] LABS: Prothrombin Time 13.9 Seconds (11.1-14.7)
[2024-02-29 16:43] LABS: Partial Thromboplastin Time 22.9 Seconds (22.3-36.8)
[2024-02-29 16:47] LABS: Alanine Aminotransferase 22 U/L (6-35); Albumin Level 4.3 g/dL (3.5-5.1); Alkaline Phosphatase 54 U/L (38-126); Anion Gap 13 mmol/L (4-12); Aspartate Amino Transferase 26 U/L (14-36); Bilirubin,Total 0.4 mg/dL (0.2-1.3); Blood Urea Nitrogen 16 mg/dL (7-17); Calcium 8.9 mg/dL (8.4-10.2); Carbon Dioxide 23 mmol/L (22-30); Chloride 102 mmol/L (98-107); Estimated Glomerular Filt Rate > 60; Glucose 139 mg/dL (65-110); Lipase 365 U/L (23-300); Potassium 3.3 mmol/L (3.4-5.0); Sodium 138 mmol/L (137-145)
[2024-02-29 16:57] LABS: Troponin I < 0.012 ng/mL (0.000-0.034)
--- NOTE | 2024-02-29 19:42 | ECG_ITS ---
Test Date: 2024-02-29 19:48:21 Measurements Intervals [place] Rate: 56 P: 48 NM: 131 QRS: -2 QRSD: 81 T: 47 QT: 405 QTc: 393 Interpretive Statements SINUS BRADYCARDIA POSSIBLE LEFT ATRIAL ENLARGEMENT POSSIBLE RIGHT VENTRICULAR CONDUCTION DELAY VOLTAGE CRITERIA FOR LVH BASELINE ARTIFACT- I, II, III, AVR, AVL, AVF BORDERLINE ECG Compared to ECG 02/29/2024 16:22:32 HEART RATE HAS DECREASED Electronically Signed On 03-01-2024 06:38:10 CDT by Bebeto Bela D.O.
[2024-02-29 19:49] VITALS: BP 122/62; PULSE 53; TEMP 37.1; O2SAT 100
[2024-02-29 20:17] LABS: Troponin I < 0.012 ng/mL (0.000-0.034)
[2024-03-01 00:40] VITALS: PULSE 50
[2024-03-01 00:41] VITALS: BP 138/67; PULSE 50; RESP 12; TEMP 36.8; O2SAT 100
--- NOTE | 2024-03-01 01:00 | ED.CHESTPAIN ---
HPI - Chest Pain General Chief Complaint: Chest Pain Stated Complaint: chest pain Time Seen by Provider: 02/29/24 16:31 Related Data Home Medications Medication Instructions Recorded Confirmed colesevelam 625 mg tablet 625 mg PO TID 01/05/21 10/26/23 norethindrone 1 mg-ethinyl 1 tablet PO DAILY 01/05/21 10/26/23 estradiol 35 mcg tablet (Nortrel) omeprazole 20 mg capsule,delayed 20 mg PO BID 01/05/21 10/26/23 release ubrogepant 100 mg tablet (Ubrelvy) 100 mg PO DAILY PRN Migraine 10/26/23 10/26/23 Headache venlafaxine 37.5 mg mg PO 02/27/24 capsule,extended release 24 hr Allergies Allergy/AdvReac Type Severity Reaction Status Date / Time PAIN MEDS Allergy Mild Hives Uncoded 02/29/24 16:36 PAIN MEDS Allergy Rash Uncoded 02/29/24 16:36 PMFSH Past Medical History Medical History Abnormality of heart beat Chronic headaches GERD (gastroesophageal reflux disease) Hair loss History of adverse reaction to anesthesia Hx of deep venous thrombosis 2020 Mitral valve regurgitation SOB (shortness of breath) Vision changes Wears glasses Surgical History Surgical History History of cholecystectomy History of hernia repair History of partial nephrectomy Hx of arthroscopy of left knee 1999 Family History Family History Other Arthritis Asthma Diabetes mellitus Heart disease High cholesterol Hypertension Social History Social History Smoking status: Never smoker Substance use: never Living arrangements: with family Gender identity (if verbalized by the patient): Female Course Vital Signs Vital signs: Vital Signs Temperature 98.3 F 02/29/24 16:29 Pulse Rate 61 02/29/24 16:29 Respiratory Rate 15 02/29/24 16:29 Blood Pressure 121/62 02/29/24 16:29 Pulse Oximetry 100 02/29/24 16:29 Oxygen Delivery Room Air 02/29/24 16:29 Temperature 98.3 F 03/01/24 00:41 Pulse Rate 50 L 03/01/24 00:41 Respiratory Rate 12 03/01/24 00:41 Blood Pressure 138/67 03/01/24 00:41 Pulse Oximetry 100 03/01/24 00:41 Oxygen Delivery Room Air 03/01/24 00:41 MDM - Chest Pain MDM Narrative Medical decision making narrative: This is a 48-year-old female who presents to the ED with chief complaint of pleuritic chest pain with recent COVID diagnosis. Vitals are normal. Exam is benign. Lungs are clear. No respiratory distress. EKG shows normal sinus rhythm. Lab work is grossly unremarkable other than slightly low potassium at 3.3.. 0 and 3 hour troponins are undetectable. Chest x-ray normal. Wells score for PE is 0. Very low suspicion for acute pulmonary embolism. Presentation is consistent with pleurisy with recent viral illness. No evidence of pneumonia. Rx for naproxen given. Pt will be discharged in stable condition. Return precautions given and supportive measures discussed. Pt is understanding and agreeable with plan for discharge and follow-up with PCP. Wells' Criteria for Pulmonary Embolism from [email or web address] on 03/01/2024 All calculations should be rechecked by clinician prior to use RESULT SUMMARY: 0.0 points Low risk group: 1.3% chance of PE in an ED population. Another study assigned scores <=4 as ?PE Unlikely? and had a 3% incidence of PE. INPUTS: Clinical signs and symptoms of DVT ?> 0 = No PE is #1 diagnosis OR equally likely ?> 0 = No Heart rate > 100 ?> 0 = No Immobilization at least 3 days OR surgery in the previous 4 weeks ?> 0 = No Previous, objectively diagnosed PE or DVT ?> 0 = No Hemoptysis ?> 0 = No Malignancy w/ treatment within 6 months or palliative ?> 0 = No Lab Data 02/29/24 16:27 02/29/24 16:27 Labs: Lab Results 02/29/24 02/29/24 Range/Units 16:27 19
== END 2024-03-01 01:15 | disposition home or self-care (01) ==
PROVIDERS: Emergency Medicine; Emergency Provider Physician Assistant; PCP Physician Assistant
DX: R09.1 Pleurisy (principal); K21.9 Gastro-esophageal reflux disease without esophagitis; Z86.718 Personal history of other venous thrombosis and embolism; I34.0 Nonrheumatic mitral (valve) insufficiency; Z86.16 Personal history of COVID-19; Z90.49 Acquired absence of other specified parts of digestive tract; Z90.5 Acquired absence of kidney; Z79.899 Other long term (current) drug therapy; Z79.3 Long term (current) use of hormonal contraceptives; R94.31 Abnormal electrocardiogram [ECG] [EKG]; R00.1 Bradycardia, unspecified
CPT/HCPCS: 36415; 71046; 80053; 83690; 84484; 85025; 85610; 85730; 93005; 99284

== ENCOUNTER 2024-05-07 08:02 | Emergency (ER) | payer OTHER, SELFPAY ==
--- NOTE | ~2024-05-07 | XR_ITS ---
EXAMINATION: XR chest 2V DATE: 05/07/2024 09:16 INDICATION: Cough and pneumonia TECHNIQUE: PA and lateral views of the chest were obtained. COMPARISON: Chest radiograph dated 02/29/24 FINDINGS: The lungs remain clear with no focal airspace opacities, pulmonary edema, pleural effusion or pneumot horax. The cardiomediastinal silhouette is normal. The cystectomy clips in the right upper quadrant. Mild thoracic spondylosis. IMPRESSION: 1. No acute cardiopulmonary disease. Reviewed, dictated and finalized at location B. MOTIVE WHOLESALE PARTS ADVISOR
--- NOTE | 2024-05-07 08:11 | ED_ITS ---
HPI - URI/Sore Throat General Chief Complaint: Upper Respiratory Infection Stated Complaint: Sore Throat/Cough Time Seen by Provider: 05/07/24 08:11 Source: patient, RN notes reviewed and old records reviewed Mode of arrival: ambulatory Limitations: no limitations History of Present Illness HPI Narrative: 48-year-old female to Express Care with complaint of sore throat and cough as well as nasal congestion. Patient denies fever. Patient reports taking Delsym without relief. Patient reports history of autoimmune disease, DVT, Raynaud's, ulcerative colitis, COVID, pneumonia. Patient denies cough being productive, shortness of breath, chest pain, fever. Patient able to tolerate fluids by mouth. Patient resting comfortably in exam room in no acute distress. Respirations even and nonlabored. Patient able to speak in complete sentences without difficulty. Related Data Home Medications Medication Instructions Recorded Confirmed norethindrone 1 mg-ethinyl 1 tablet PO DAILY 01/05/21 10/26/23 estradiol 35 mcg tablet (Nortrel) Allergies Allergy/AdvReac Type Severity Reaction Status Date / Time PAIN MEDS Allergy Mild Hives Uncoded 02/29/24 16:36 PAIN MEDS Allergy Rash Uncoded 02/29/24 16:36 Review of Systems Review of Systems: All systems reviewed & are unremarkable except as noted in HPI and below Constitutional: Constitutional: Reports no additional constitutional complaints Eyes: Eyes: Reports no additional eye complaints ENT: Reports as per HPI, Reports nasal congestion and Reports sore throat Cardiovascular: Cardiovascular: Reports no additional cardiovascular complaints, Denies chest pain and Denies dyspnea Respiratory: Respiratory: Reports no additional respiratory complaints, Reports cough and Denies dyspnea Musculoskeletal: Musculoskeletal: Reports no additional musculoskeletal complaints Neurologic: Reports system reviewed and no additional complaints, except as documented Psychiatric: Psychiatric: Reports no additional psychiatric complaints [facility] Past Medical History Medical History Abnormality of heart beat Chronic headaches GERD (gastroesophageal reflux disease) Hair loss History of adverse reaction to anesthesia Hx of deep venous thrombosis 2020 Mitral valve regurgitation SOB (shortness of breath) Vision changes Wears glasses Surgical History Surgical History History of cholecystectomy History of hernia repair History of partial nephrectomy Hx of arthroscopy of left knee 1999 Family History Family History Other Arthritis Asthma Diabetes mellitus Heart disease High cholesterol Hypertension Social History Social History Smoking status: Never smoker Substance use: never Living arrangements: with family Gender identity (if verbalized by the patient): Female Comments At the time of my signature, I reviewed and agree with the nursing past medical, surgical, social, and family history. There is no relevant family history pertinent to the patient complaint. Exam Const: General: cooperative, comfortable, no acute distress, alert, tired appearing and well nourished Nutritional Appearance: well nourished Orientation/consciousness: patient oriented x3 Limitations: no limitations HENMT: Head: normal to inspection Ears: external ears normal Face/Nose/Sinus: Normal external nose present, Normal nares present, normal facial exam, No erythema and No edema Face and sinus: normal facial exam, no erythema and no edema Mouth: Yes Normal oral and palatal mucosa present Throat: posterior oropharynx abnormal erythema and postnasal drainage Eyes: General: appearance normal, both eyes and all related structures Neck: Neck: normal visual inspection, full ROM and no meningeal signs Lymphatic: no lymphadenopathy noted and no lymphedema noted Chest: Chest palpation & inspection: normal inspection of the chest Resp: Effort & Inspection: normal respiratory effort, able to speak in complete sentences and Actively coughing actively coughing Auscultation: clear to auscultation bilaterally Cardio: Jugular venous distension: no JVD Rate: regular rate Rhythm: regular rhythm Back/Spine/Pelvis: Cervical Spine: cervical ROM normal Skin: General skin exam: normal color, no rashes or lesions noted and turgor normal Neuro: General: patient oriented x3, gait normal, moves all extremities and no meningeal signs Speech: normal speech Gait exam (Neuro): Normal gait present Extrem: General: normal to inspection, full ROM and capillary refill normal Psych: Appearance: grossly normal and well kempt Course Course Emergency Course: Some parts of this dictation were generated by voice recognition software and may contain typographical and/or grammatical inaccuracies. Level of Care: Express Care Visit Vital Signs Vital signs: Vital Signs Temperature 36.8 C 05/07/24 08:12 Pulse Rate 85 05/07/24 08:12 Respiratory Rate 19 05/07/24 08:12 Blood Pressure 112/65 05/07/24 08:12 Pulse Oximetry 99 05/07/24 08:12 Oxygen Delivery Room Air 05/07/24 08:12 Temperature 36.8 C 05/07/24 08:12 Pulse Rate 85 05/07/24 08:12 Respiratory Rate 19 05/07/24 08:12 Blood Pressure 112/65 05/07/24 08:12 Pulse Oximetry 99 05/07/24 08:12 Oxygen Delivery Room Air 05/07/24 08:12 reviewed MDM - URI/Sore Throat MDM Narrative Medical decision making narrative: 48-year-old female to Express Care with complaint of sore throat and cough as well as nasal congestion. Patient denies fever. Patient reports taking Delsym without relief. Patient reports history of autoimmune disease, DVT, Raynaud's, ulcerative colitis, COVID, pneumonia. Patient denies cough being productive, shortness of breath, chest pain, fever. Patient able to tolerate fluids by mouth. Patient resting comfortably in exam room in no acute distress. Respirations even and nonlabored. Patient able to speak in complete sentences without difficulty. On exam, posterior oropharynx erythematous with postnasal drainage. Cough present during exam. Patient negative for strep in clinic. Culture sent. Radiology of chest negative for acute findings in clinic. Patient is sitting comfortably in exam room nontoxic in appearance. Patient appropriate for outpatient treatment and follow-up. Discharge instructions reviewed with patient, as well as provided in writing per nursing staff. The instructions also include specific and strict return/GO TO THE ER as well as f/u information. All questions have been answered, and the patient deny any further questions with discharge and discharge plan. Some parts of this dictation were generated by voice recognition software and may contain typographical and/or grammatical inaccuracies. Differential Diagnosis Differential diagnosis: Likely upper respiratory infection, croup, otitis media, sinusitis, viral infection, bronchitis, influenza and pharyngitis Lab Data Labs: Lab Results 05/07/24 Range/Units 08:18 POC Grp A Strep Screen Negative (Negative) Imaging Data Radiologist's impression: Ordering Physician: Katey Sanches APRN Date of Service: 05/07/24 Procedure(s): XR chest 2V Accession Number(s): [id number] cc: Katey Sanches APRN; Buzz, Griffin PEREZ~ EXAMINATION: XR chest 2V DATE: 05/07/2024 09:16 INDICATION: Cough and pneumonia TECHNIQUE: PA and lateral views of the chest were obtained. COMPARISON: Chest radiograph dated 02/29/24 FINDINGS: The lungs remain clear with no focal airspace opacities, pulmonary edema, pleural effusion or pneumothorax. The cardiomediastinal silhouette is normal. The cystectomy clips in the right upper quadrant. Mild thoracic spondylosis. IMPRESSION: 1. No acute cardiopulmonary disease. Discharge Plan Discharge Clinical Impression: Upper respiratory infection Patient Disposition: Home, Self-Care Condition: Stable Instructions: Upper Respiratory Infection (DC) Additional Instructions: Your rapid strep swab was negative today at [facility]. A throat culture will be sent to the laboratory for further testing. If the test is positive, you will receive a phone call within 48 hours and an appropriate antibiotic will be initiated at that time. -Alternate Tylenol and Motrin per package directions for fever or pain. -Antihistamine medication such as Benadryl at night and Zyrtec/Claritin/Maral during the day can help improve symptoms. -Use Flonase twice a day for 5 days then daily to help reduce the inflammation and dry up your sinuses. -You can also use Sudafed or Mucinex. Be sure to drink plenty of water with these medications at least 8 ounces with every dose and it is important to drink 8 to 10 glasses of water per day. Water is a natural decongestant -Eat and drink things that are easy to swallow, like tea or soup, or popsicles. -Oral rinses such as: Salt water gargles and/or may use topical anesthetic (eg. Chloraseptic spray) or lozenges to relieve dryness or throat pain). -Frequent hand washing or hand certified professional midwife is one of the best ways to prevent spread of infection. -Using a vaporizer or humidifier at night will also help thin secretions and help with coughing up phlegm. -Follow up with primary care provider in 2-3 days if condition is not improving; or seek ER visit if you have trouble breathing, cannot drink enough fluids, have muffled voice, difficulty opening your mouth, or severe swelling. Prescriptions: No Action Nortrel (28) 1-35 mg-mcg tablet 1 tablet PO DAILY Follow-up/Referrals: Buzz,ANCA Umaña [Primary Care Provider] - Stand Alone Forms: Work/School Release IP
[2024-05-07 08:12] VITALS: BP 112/65; PULSE 85; RESP 19; TEMP 36.8; O2SAT 99
[2024-05-07 08:20] LABS: EDSTREPNEGPOS1 Negative (Negative)
== END 2024-05-07 09:37 | disposition home or self-care (01) ==
PROVIDERS: Emergency Provider Nurse Practitioner Family; PCP Physician Assistant
DX: J06.9 Acute upper respiratory infection, unspecified (principal)
CPT/HCPCS: 71046; 87081; 87880; 99213; G0463

== ENCOUNTER 2024-05-11 20:29 | Emergency (ER) | payer OTHER, SELFPAY ==
--- NOTE | ~2024-05-11 | XR_ITS ---
EXAMINATION: XR chest 1V portable DATE: 05/11/2024 22:17 INDICATION: Chest pain TECHNIQUE: frontal view of the chest was obtained. COMPARISON: Chest radiograph dated 05/07/2024 FINDINGS: The lungs remain clear with no focal airspace opacities, pulmonary edema, pleural effusion or pneumot horax. The cardiomediastinal silhouette is normal. Cholecystectomy clips in right upper quadrant. IMPRESSION: 1. No acute cardiopulmonary disease. Reviewed, dictated and finalized at location A. ICAL APPLICATOR
--- NOTE | ~2024-05-11 | CT_ITS ---
EXAMINATION: CTA chest PE protocol DATE: 05/11/2024 23:01 INDICATION: Chest pain TECHNIQUE: Computed tomography (CT) pulmonary angiogram of the chest was performed with 100 mL Omnipa que-350 intravenous contrast. Additional 3D reconstructions utilizing coronal maximum intensity proje ction (MIP) were performed. Automated exposure control and iterative reconstruction technique were em ployed. The dose-length product was 140.87 mGy-cm. COMPARISON: 01/30/2022 FINDINGS: No pulmonary embolism. No pneumonia, pulmonary edema, pleural effusion or pneumothorax. Heart size is normal. No pericardial effusion. Thoracic aorta is normal in caliber with no dissection. No patholog ically enlarged thoracic lymphadenopathy. Mild dilation the common bile duct to 9 mm likely related t o prior cholecystectomy and second trimester clips the gallbladder fossa. No intrahepatic biliary carroll sandro dilation. Mild thoracic spondylosis. IMPRESSION: 1. No pulmonary embolism or other acute cardiopulmonary disease. Reviewed, dictated and finalized at location A. WIRER
[2024-05-11 20:39] VITALS: BP 109/66; PULSE 60; RESP 20; TEMP 36.6; O2SAT 100
--- NOTE | 2024-05-11 20:51 | ECG_ITS ---
Test Date: 2024-05-11 21:16:31 Measurements Intervals [place] Rate: 56 P: 42 NJ: 138 QRS: -7 QRSD: 84 T: 16 QT: 420 QTc: 408 Interpretive Statements SINUS BRADYCARDIA POSSIBLE RIGHT VENTRICULAR CONDUCTION DELAY VOLTAGE CRITERIA FOR LVH BASELINE ARTIFACT- I, II, III, AVR, AVL, AVF, V4-V5 BORDERLINE ECG Compared to ECG 02/29/2024 19:48:21 No significant changes Electronically Signed On 05-11-2024 22:25:06 AVIONICS SYSTEMS TECHNICIAN by Bebeto Beal D.O.
--- NOTE | 2024-05-11 21:43 | ED_ITS ---
HPI - SOB/Dyspnea General Chief Complaint: Shortness of Breath/Dyspnea Stated Complaint: sob Time Seen by Provider: 05/11/24 21:27 History of Present Illness HPI Narrative: 48-year-old female presenting to the emergency department chief complaint of chest pain and difficulty in breathing. She has also been having some hoarseness, sore throat and headache for 6 days. Was seen by her primary care provider prescribed azithromycin Z-Casey as well as a Medrol Dosepak. She has completed both of these without any improvement her symptoms. She has a history of an unprovoked left lower extremity DVT and not present any kind of anticoagulation medications. She states she has a history of autoimmune disease as being worked up by snowboard designer on outpatient basis at [facility]. She was oth erwise in her normal state of health past last week states that her chest pain shortness a breath concerning and she was told that she might need a CT angiography. Her insurance did not approve this on outpatient basis according to herself. Denies any measurable fevers, back pain, abdominal pain, diarrhea, constipation, nausea vomiting. Has had multiple bouts of COVID disease in the past. Related Data Home Medications Medication Instructions Recorded Confirmed norethindrone 1 mg-ethinyl 1 tablet PO DAILY 01/05/21 10/26/23 estradiol 35 mcg tablet (Nortrel) Allergies Allergy/AdvReac Type Severity Reaction Status Date / Time PAIN MEDS Allergy Mild Hives Uncoded 05/11/24 20:51 PAIN MEDS Allergy Rash Uncoded 05/11/24 20:51 Review of Systems Review of Systems: as reviewed above in HPI [facility] Past Medical History Medical History Abnormality of heart beat Chronic headaches GERD (gastroesophageal reflux disease) Hair loss History of adverse reaction to anesthesia Hx of deep venous thrombosis 2020 Mitral valve regurgitation SOB (shortness of breath) Vision changes Wears glasses Surgical History Surgical History History of cholecystectomy History of hernia repair History of partial nephrectomy Hx of arthroscopy of left knee 1999 Family History Family History Other Arthritis Asthma Diabetes mellitus Heart disease High cholesterol Hypertension Social History Social History Smoking status: Never smoker Substance use: never Living arrangements: with family Gender identity (if verbalized by the patient): Female Exam Narrative: GENERAL: [Well-appearing, well-nourished, and in no acute distress.] HEAD: [Normocephalic, atraumatic.] EYES: [PERRLA and EOMI.] ENT: posterior or pharyngeal erythema with some postnasal drip seen, no epistaxis, nares are clear. No otitis in either ear canal. , dry mucous membranes. NECK: Supple. CHEST: [Clear to auscultation. No respiratory distress.] HEART: [Regular rate and rhythm]. No murmur heard. [Normal peripheral pulses.] ABDOMEN: [Soft, nondistended], [nontender], [No rigidity or guarding] EXTREMITIES: Normal range of motion. [No edema.] SKIN: Warm, dry, no rash. NEURO: [No focal deficits]. Alert and oriented [x3.] PSYCH: [Normal mood and affect.] Course Vital Signs Vital signs: Vital Signs Temperature 36.6 C 05/11/24 20:39 Pulse Rate 60 05/11/24 20:39 Respiratory Rate 20 05/11/24 20:39 Blood Pressure 109/66 05/11/24 20:39 Pulse Oximetry 100 05/11/24 20:39 Oxygen Delivery Room Air 05/11/24 20:39 Temperature 37.3 C 05/11/24 21:45 Pulse Rate 63 05/11/24 21:45 Respiratory Rate 17 05/11/24 21:45 Blood Pressure 110/67 05/11/24 21:45 Pulse Oximetry 99 05/11/24 21:45 Oxygen Delivery Room Air 05/11/24 21:41 MDM - SOB/Dyspnea MDM Narrative Medical decision making narrative: 48-year-old female with history of a left lower extremity DVT, autoimmune disorders according to the patient. She has received treated for a upper respiratory infection and bronchitis, pleurisy with Medrol Dosepak and azithromycin without any relief of her symptoms. Today she is complaining of chest pain shortness a breath. She has had a nonproductive cough and headache for last 6 days. Vital signs reassuring without any blood pressure concerns, tachycardia, fever, hypoxia or tachypnea. She has clear breath sounds bilateral without any wheezing, rhonchi or rales. She is not any kind of anticoagulation for her previous DVT in the left side. Legs are symmetric today without any evidence of acute thrombosis in her legs. She was told that she needs to CT angiography but her insurance denied this on outpatient basis. Differential diagnosis includes upper respiratory infection, lower respiratory infection, bronchitis, possible pulmonary embolism or acute pneumonia. Aortic syndrome and coronary syndrome or less likely. Broad workup was ordered including troponin, EKG, chest x-ray, CBC, CMP and a test. CT angiography with PE protocol was ordered given her high risk factors and elevated Wells score at this time. She was given a L of fluid bolus for hydration given her dry mucous membranes. Laboratory studies revealed no leukocytosis or anemia. Normal platelet level. Chemistry panel all within normal limits. No COVID fluid influenza. Coag studies within normal limits. Normal renal and hepatic function panels. Negative troponin. Patient CT angiography was independently reviewed by myself and also interpreted by [facility]. I do not appreciate any kind of pulmonary embolisms, infiltrates or acute lung pathology. Stat read shows no pulmonary embolism or any parenchymal lung opacities or infiltrates. no changes from prior examination in 2021. patient was re-evaluated And remained well here in the emergency department. Vital signs remained normal and she was encouraged by her normal reassuring workup. Patient is stable for discharge home at this time and provider workup at her request. I told her to continue taking her Medrol Dosepak at the request for primary care provider and her prescription. She was given return precautions and safely discharged home at this time. Medical Records Attestation: I reviewed the patient's medical records. Lab Data Attestation: I reviewed the patient's lab results. 05/11/24 22:05 05/11/24 22:05 Labs: Lab Results 05/11/24 05/11/24 Range/Units 21:50 22:05 WBC 9.2 (4.5-10.0) K/mm3 RBC 4.27 (4.2-5.4) M/mm3 Hgb 12.6 (12.0-15.0) g/dL Hct 36.6 L (37.0-47.0) % MCV 85.7 (80-100) fl MCH 29.5 (26-34) pg MCHC 34.4 (32-36) g/dl RDW 13.5 (11.5-14.5) % Plt Count 287 (150-375) k/mm3 MPV 10.6 H (7.4-10.4) fl Immature Gran % (Auto) 0.7 H (0-0.5) % Neut % (Auto) 79.1 H (45.5-73.1) % Lymph % (Auto) 15.4 L (18.3-44.2) % [place]ardo % (Auto) 4.4 (2.6-8.5) % Eos % (Auto) 0.0 (0-4.4) % Baso % (Auto) 0.4 (0.2-1.2) % Lymph # (Auto) 1.41 (0.9-3.2) K/mm3 [place]ardo # (Auto) 0.4 (0.1-0.6) K/mm3 Eos # (Auto) 0.0 (0-0.3) K/mm3 Baso # (Auto) 0.0 (0.0-0.1) K/mm3 Abs Immat Gran (auto) 0.06 H (0.00-0.031) K/mm3 Absolute Neuts (auto) 7.2 H (1.3-6.7) K/mm3 Absolute Nucleated RBC 0.000 (0.0-0.012) K/mm3 Nucleated RBC % 0.0 (0.0-0.2) % PT 13.4 (11.1-14.7) Seconds INR 1.0 APTT 25.0 (22.3-36.8) Seconds Sodium 136 L (137-145) mmol/L Potassium 4.7 (3.4-5.0) mmol/L Chloride 102 (98-107) mmol/L Carbon Dioxide 26 (22-30) mmol/L Anion Gap 8 (4-12) mmol/L BUN 12 (7-17) mg/dL Creatinine 0.60 L (0.7-1.0) mg/dL Estim Creat Clear Calc Not Reportable Estimated GFR > 60 (59 - ) Glucose 101 (65-110) mg/dL Calcium 9.4 (8.4-10.2) mg/dL Total Bilirubin 0.6 (0.2-1.3) mg/dL AST 29 (14-36) U/L ALT 19 (6-35) U/L Alkaline Phosphatase 61 (38-126) U/L Troponin I < 0.012 (0.000-0.034) ng/mL NT-Pro-B Natriuret Pep 76 (19.9-100) pg/mL Total Protein 8.0 (6.3-8.2) g/dL Albumin 4.3 (3.5-5.1) g/dL POC Urine HCG, Qual Negative (Negative) Influenza A (RT-PCR) Negative (Negative) Influenza B (RT-PCR) Negative (Negative) RSV (RT-PCR) Negative (Negative) SARS-CoV-2 RNA (RT-PCR) Negative (Negative) Imaging Data Attestation: I personally reviewed and interpreted this imaging study as follows: My impression: No PE, no PNA, or PTX Discharge Plan Discharge Clinical Impression: Chest pain, Acute dyspnea Patient Disposition: Home, Self-Care Condition: Stable Instructions: Antibiotic Form, Chest Pain (DC), Dyspnea (ED) Additional Instructions: all your laboratory studies and scans were very reassuring. No emergent causes to her chest pain and difficulty in breathing. I would continue taking her Medrol Dosepak as prescribed by her primary care provider. Please return to them for repeat evaluation of your symptoms and follow-up outpatient. If you have any new or worsening symptoms or any concerns you can always come back for repeat evaluation at any time. Prescriptions: No Action Nortrel (28) 1-35 mg-mcg tablet 1 tablet PO DAILY Follow-up/Referrals: Buzz,ANCA Umaña [Primary Care Provider] - Stand Alone Forms: Work/School Release IP Time of Disposition: 00:11 Quality HEART score for chest pain patients History: slightly suspicious ECG: normal Age: > 45 and < 65 years Risk factors: no risk factors known Troponin: < or = to 1x normal limit Heart score: 1
[2024-05-11 21:45] VITALS: BP 110/67; PULSE 63; RESP 17; TEMP 37.3; O2SAT 99
[2024-05-11 21:52] LABS: BEDSIDEPREGUCG Negative (Negative)
[2024-05-11] MEDS: LACTATED RINGERS 1,000 ML 999 ML IV CONT (22:26)
[2024-05-11 22:34] LABS: Basophils Percent Auto 0.4 % (0.2-1.2); Hematocrit 36.6 % (37.0-47.0); Hemoglobin 12.6 g/dL (12.0-15.0); Immature Granulocyte Absolute 0.06 K/mm3 (0.00-0.031); Immature Granulocyte Percent A 0.7 % (0-0.5); Lymphocytes Absolute Auto 1.41 K/mm3 (0.9-3.2); Lymphocytes Percent Auto 15.4 % (18.3-44.2); Mean Corpuscular HGB Conc 34.4 g/dl (32-36); Mean Corpuscular Hemoglobin 29.5 pg (26-34); Mean Corpuscular Volume 85.7 fl (80-100); Mean Platelet Volume 10.6 fl (7.4-10.4); Monocytes Absolute Auto 0.4 K/mm3 (0.1-0.6); Monocytes Percent Auto 4.4 % (2.6-8.5); Neutrophils Absolute Auto 7.2 K/mm3 (1.3-6.7); Neutrophils Percent Auto 79.1 % (45.5-73.1); Platelet Count Result 287 k/mm3 (150-375); Red Blood Count 4.27 M/mm3 (4.2-5.4); Red Cell Distribution Width 13.5 % (11.5-14.5); White Blood Count 9.2 K/mm3 (4.5-10.0)
[2024-05-11 22:46] LABS: Alanine Aminotransferase 19 U/L (6-35); Albumin Level 4.3 g/dL (3.5-5.1); Alkaline Phosphatase 61 U/L (38-126); Anion Gap 8 mmol/L (4-12); Aspartate Amino Transferase 29 U/L (14-36); Bilirubin,Total 0.6 mg/dL (0.2-1.3); Blood Urea Nitrogen 12 mg/dL (7-17); Calcium 9.4 mg/dL (8.4-10.2); Carbon Dioxide 26 mmol/L (22-30); Chloride 102 mmol/L (98-107); Estimated Glomerular Filt Rate > 60; Glucose 101 mg/dL (65-110); Potassium 4.7 mmol/L (3.4-5.0); Prothrombin Time 13.4 Seconds (11.1-14.7); Sodium 136 mmol/L (137-145)
[2024-05-11 22:57] LABS: NT Pro B Type Natriuretic Pept 76 pg/mL (19.9-100); Troponin I < 0.012 ng/mL (0.000-0.034)
[2024-05-11 23:11] LABS: Influenza A QL RT-PCR Negative (Negative); Influenza B QL RT-PCR Negative (Negative); RSV RNA, RT-PCR Negative (Negative); SARS-CoV-2 RNA PCR Negative (Negative)
--- NOTE | 2024-05-11 23:22 | PC.NURSE ---
Report received from BARBARA Keita. Assumed care of patient at this time.
[2024-05-11 23:33] VITALS: O2SAT 97
[2024-05-11 23:35] VITALS: BP 110/65; O2SAT 97
[2024-05-11 23:45] VITALS: O2SAT 100
[2024-05-12] VITALS: BP 103/53; PULSE 60; RESP 17; O2SAT 100
== END 2024-05-12 00:22 | disposition home or self-care (01) ==
PROVIDERS: Emergency Provider Student in an Organized Health Care Education/Training Program; PCP Physician Assistant
DX: R07.9 Chest pain, unspecified (principal); R06.00 Dyspnea, unspecified; Z20.822 Contact with and (suspected) exposure to COVID-19; I34.0 Nonrheumatic mitral (valve) insufficiency; D89.89 Other specified disorders involving the immune mechanism, not elsewhere classified; K21.9 Gastro-esophageal reflux disease without esophagitis; Z86.718 Personal history of other venous thrombosis and embolism; Z86.16 Personal history of COVID-19; Z90.49 Acquired absence of other specified parts of digestive tract; Z90.5 Acquired absence of kidney; R00.1 Bradycardia, unspecified; R94.31 Abnormal electrocardiogram [ECG] [EKG]
CPT/HCPCS: 36415; 71045; 71275; 80053; 81025; 83880; 84484; 85025; 85610; 85730; 87637; 93005; 96360; 96361; 99284; J7120; Q9967

== ENCOUNTER 2024-08-07 12:59 | Emergency (ER) | payer OTHER, SELFPAY ==
--- NOTE | ~2024-08-07 | CT_ITS ---
EXAMINATION: CT abdomen pelvis w con DATE: 08/07/2024 16:17 INDICATION: Abdominal pain. TECHNIQUE: Computed tomography (CT) of the abdomen and pelvis was performed with 100 mL Omnipaque 350 intravenous contrast. Automated exposure control and iterative reconstruction technique were employe d. The dose-length product was 246.75 mGy-cm. COMPARISON: CT abdomen and pelvis 12/20/2021 FINDINGS: The visualized portions of the lung bases demonstrate mild atelectasis. No pleural effusion . The heart size is normal. No pericardial effusion. The liver and spleen are normal. There are ignacio es of cholecystectomy. The pancreas, adrenal glands, are normal. There is cortical thinning of the ki dneys, right worse than left. There are no dilated loops of bowel. The appendix is normal. There are no pathologically enlarged lymph nodes. There is physiologic fluid in the pelvis. There is mild thora cic and lumbar spondylosis. IMPRESSION: 1. No etiology for the patient's symptoms. Reviewed, dictated and finalized at location A. R FIELD INSTALLATION CREW MEMBER
--- OUTSIDE RECORDS SUMMARY | 2024-08-07 13:07 | XMS_ITS | Patient Health Summary ---
Author Organization [facility] Address [address] [place] [address] Care Team Providers Care Javascript Application Developer Name Role Phone Unavailable Primary Care Provider Unavailabl e Note from [facility],non-owned Affiliates and Associated Physician Practices is amultiple site organization consisting of ambulatory clinics and hospital sitesin [place], [place] and [place]. This disclosure is being madepursuant to the Care Everywhere program and may not contain all information available regarding this patient. Last updated 18.[facility] Allergies * Codeine(Nausea and/or Vomiting,Vomiting) -Low Criticality * Hydrocodone-Acetaminophen(Nausea and/or Vomiting) -Low Criticality * Meperidine(Nausea and/or Vomiting,Vomiting) -Low Criticality * Prochlorperazine(Unknown) * Propoxyphene N-Apap(Nausea and/or Vomiting) -Low Criticality Medications * Be aware that medications may not be up to date on this document. Alwaysverify current medications with the patient. * colesevelam (Welchol) 625 MG tablet(Started 06/21/2022) Take 1 (one) tablet by mouth 3 times daily * metoprolol tartrate IR (Lopressor) 25 MG tablet(Started 08/30/2022) Take 1 (one) tablet by mouth once daily * czbficqq-gzyzowzal-cy (Cortisporin) 3.5-02053-6 otic suspension(Started 09/09/2022) Instill 4 (four) drops into both ears 3 times daily * omeprazole (PriLOSEC) 20 MG capsule(Started 04/06/2021) Take 1 (one) capsule by mouth 2 times daily * Ubrelvy 100 MG tablet(Started 09/11/2022) Take 1 (one) tablet by mouth as directed Active Problems Problem Noted Date Diagnosed Date History of COVID-19 03/15/2021 COVID-19 02/09/2021 Renal cyst 11/02/2018 Atrial tachycardia 02/16/2017 PAC (premature atrial contraction) 02/16/2017 PVC (premature ventricular contraction) 02/17/20 17 MVP (mitral valve prolapse) 02/16/2017 Dizziness 01/06/2017 Palpitations 01/06/2017 Ulcerative colitis 01/06/2017 Irritable bowel syndrome with diarrhea 5 Gastritis 06/02/2015 Biliary dyskinesia 06/02/2015 Chest pain 11/02/2013 Microscopic hematuria 05/24/2012 Social History Tobacco Use Types Packs/Day Years Used Date Smoking Tobacco: Never Smokeless Tobacco: Never Sex and Gender Information Value Date Recorded Sex Assigned at Not on file Gender Identity Not on file Sexual Orientation Not on file Procedures * XR TIBIA FIBULA LEFT 2VW(Performed 09/14/2022) Performed for Left knee pain, unspecified chronicity Results * XR TIBIA FIBULA LEFT 2VW (09/14/2022 11:56 AM CDT) Anatomical Region Laterality Modality Lower Extremity Radiographic Dania ging 09/14/2022 11:4 2 AM CDT Impressions 09/14/2022 11:44 AM CDT IMPRESSION: No acute fracture in the tibia or fibula. Report dictated by Mohan Zamarripa MD (executive vice president business development) I, Nick Guzman MD have personally reviewed and interpreted this examination/study. > Interpreting Provider: Nick Guzman MD on 09/14/2022 11:44 AM Narrative 09/14/2022 11:44 AM CDT PROCEDURE: XR TIBIA FIBULA LEFT 2VW, DATE/TIME OF EXAM: 09/14/2022 11:36 AM, LOCATION [facility] INDICATION: M25.562: Left knee pain, unspecified chronicity ADDITIONAL CLINICAL INFORMATION: Ordering Provider Reason For Exam: eval NOF lesion Technologist Note: Additional: COMPARISON: None. FINDINGS: The tibia and fibula are intact without evidence of acute fracture. Bone density and texture are normal. No soft tissue swelling is present. Procedure Note Nick Guzman MD - 09/14/2022 PROCEDURE: XR TIBIA FIBULA LEFT 2VW, DATE/TIME OF EXAM: 1:36 AM, LOCATION [facility] INDICATION: M25.562: Left knee pain, unspecified chronicity ADDITIONAL CLINICAL INFORMATION: Ordering Provider Reason For Exam: eval NOF lesion Technologist Note: Additional: COMPARISON: None. FINDINGS: The tibia and fibula are intact without evidence of acute fracture. Bone density and texture are normal. No soft tissue swelling is present. IMPRESSION: No acute fracture in the tibia or fibula. Report dictated by Mohan Zamarripa MD (executive vice president business development) I, Nick Guzman MD have personally reviewed and interpreted this examination/study. > Interpreting Provider: Nick Guzman MD on 09/14/2022 11:44 AM Ramon Magdaleno MD DIAGNOSTIC IMAGING [facility]
--- OUTSIDE RECORDS SUMMARY | 2024-08-07 13:07 | XMS_ITS | Referral Summary ---
Author Organization [facility] Address [address] [place] [address] Care Team Providers Care Stogy Roller Name Role Phone Unavailable Primary Care Provider Unavailabl e Source Comments [facility],non-owned Affiliates and Associated Physician Practices is amultiple site organization consisting of ambulatory clinics and hospital sitesin [place], [place], [place] and [place]. This disclosure is being madepursuant to the Care Everywhere program and may not contain all information available regarding this patient. Last updated 18.[facility] Allergies Active Allergy Reactions Criticality Noted Date Comments Codeine Nausea and/or Vomiting,Vomiting Low 05/18/2015 Hydrocodone-Acetaminophen Nausea and/or Vomiting Low 04/23/2021 Meperidine Nausea and/or Vomiting,Vomiting Low 05/18/2015 Prochlorperazine Unknown 09/14/2022 Propoxyphene N-Apap Nausea and/or Vomiting Low 10/2020 Medications * Be aware that medications may not be up to date on this document. Alwaysverify current medications with the patient. Medication Sig Dispensed Refills Start Date End Date Status colesevelam (Welchol) 625 MG tablet Take 1 (one) tablet by mouth 3 times daily 06/21/2022 Active metoprolol tartrate IR (Lopressor) 25 MG tablet Take 1 (one) tablet by mouth once daily 08/30/2022 Active cncsdcgj-nrlcrledx-pi (Cortisporin) 3.5-05059-0 otic suspension Instill 4 (four) drops into both ears 3 times daily 09/09/2022 Active omeprazole (PriLOSEC) 20 MG capsule Take 1 (one) capsule by mouth 2 times daily 04/06/2021 Active Ubrelvy 100 MG tablet Take 1 (one) tablet by mouth as directed 09/11/2022 Active Active Problems Problem Noted Date Diagnosed Date History of COVID-19 03/15/2021 COVID-19 02/09/2021 Overview (09/14/2022): Last Assessment & Plan: Prescription sent for doxycyline due to potential for bacterial pneumonia. Patient instructed to follow up with PCP for any continued symptoms. Patient should follow up with PCP for any worsening symptoms or report to the ED with chest pain, SOB or other concerns. Renal cyst 11/02/2018 Atrial tachycardia 02/16/2017 PAC (premature atrial contraction) 02/16/2017 PVC (premature ventricular contraction) 02/17/20 17 MVP (mitral valve prolapse) 02/16/2017 Dizziness 01/06/2017 Palpitations 01/06/2017 Ulcerative colitis 01/06/2017 Irritable bowel syndrome with diarrhea 5 Gastritis 06/02/2015 Biliary dyskinesia 06/02/2015 Chest pain 11/02/2013 Overview (09/14/2022): CHEST PAIN NOS Microscopic hematuria 05/24/2012 Social History Tobacco Use Types Packs/Day Years Used Date Smoking Tobacco: Never Smokeless Tobacco: Never Sex and Gender Information Value Date Recorded Sex Assigned at Not on file Gender Identity Not on file Sexual Orientation Not on file Plan of Treatment Not on file
--- OUTSIDE RECORDS SUMMARY | 2024-08-07 13:07 | XMS_ITS | Encounter Summary ---
Author Organization [facility] Address [address] [facility] [place] [address] Phone Care Team Providers Care Pipe Bowls Paint Trimmer Name Role Phone Griffin Gerber Primary Care Provider [phone] Indu Wright MD Unavailable [phone] Jj Steele DO Unavailable [phone] Reason for Visit * Reason Comments Medication Refill Encounter Details Date Type Department Care Team (Late st Contact Info) Description 04/07/2021 Refill [facility] - General Surgery [facility] [address] [phone] Mack Dolan MD [address] [address] Medication Refill Social History Tobacco Use Types Packs/Day Years Used Date Smoking Tobacco: Never Smokeless Tobacco: Never Alcohol Use Standard Drinks/Week Comments Not Currently 0 (1 standard drink = 0.6 oz pur e alcohol) RARELY Sexually Active Control Partners Comments Yes Male Comments No Sex and Gender Information Value Date Recorded Sex Assigned at Not on file Legal Sex Female 11:47 PM CDT Gender Identity Not on file Sexual Orientation Not on file Occupation Industry Job Start Date Job End Date [employer] Not on file Not on file Not on file documented as of this encounter Plan of Treatment Not on file documented as of this encounter Visit Diagnoses Not on filedocumented in this encounter Care Teams Pipe Bowls Paint Trimmer Relationship Specialty Start Date End Date Griffin Gerber PAC [address] [place] [address] PCP - General Physician Qa Test Analyst 05/18/15 Indu Wright MD [address] [place] [address] Consulting Physician General Surgery 05/18/15 Jj Steele DO [address] [place] [address] Gastroenterology 05/18/15 documented as of this encounter
--- OUTSIDE RECORDS SUMMARY | 2024-08-07 13:07 | XMS_ITS | Data Portability ---
Author Organization [facility] Address [address] [place] [address] Care Team Providers Care Utilities Manager Name Role Phone HSUNICKY Personal Injury Litigation Paralegal OSVALDO GERBER Primary Care Provider Assessment No assessment recorded. Plan of Treatment Reminders Order Date Submit Date Provider Last Modified By Organization Details Last Modified Time Details Appointments ANY 15 2024 10:45A M Osvaldo Gerber, PAIlene Not available Not available Not available Lab JACOB + rf (antinucl ear antibodie s + rheumatoi d factor), quantitat annie, serum 2024 025 [facility], [address] [facility] [address], [place], [address], 07/03/2024 15:13:53 ESR (erythroc yte sedimenta tion rate), blood 2024 025 [facility], [address] [facility], [facility], [place], [address], 07/03/2024 15:13:52 unlisted lab - regional panel 8 2023 024 [facility], [address] [facility], [facility], [place], [address], 05/16/2024 17:07:59 influenza virus A + B + SARS-CoV- 2 (COVID19) Ag panel, rapid IA, upper respirato ry specimen 2023 024 daisha In-Office Order, Internal Use Only DO Not Attach Compendium DO Not Attach Compendium, Do Not Delete/merge, [id number] 05/09/2024 16:15:43 TSH + free T4, serum 2023 024 [facility], [address] [place] [address] 2, [place], [address], 03/14/2024 08:27:06 CMP, serum or plasma 2023 024 [facility], [address] [place] [address] 2, [place], [address], 03/14/2024 08:27:07 CBC w/ auto diff 2023 024 [facility], [address] [place] [address] 2, [place], [address], 03/12/2024 17:06:02 influenza virus A + B + SARS-CoV- 2 (COVID19) Ag panel, rapid IA, upper respirato ry specimen 2023 024 ann In-Office Order, Internal Use Only DO Not Attach Compendium DO Not Attach Compendium, Do Not Delete/merge, [id number] 02/23/2024 12:44:03 rapid strep group A, throat 2023 024 ann In-Office Order, Internal Use Only DO Not Attach Compendium DO Not Attach Compendium, Do Not Delete/merge, [id number] 02/23/2024 12:44:02 urinalysi s, dipstick 2023 024 ann In-Office Order, Internal Use Only DO Not Attach Compendium DO Not Attach Compendium, Do Not Delete/merge, [id number] 02/23/2024 12:44:03 Referral vascular surgeon referral 2023 024 gloria Demarco MD, [address] [place] [address] , [address], [place], [address], 04/01/2024 17:18:25 Procedures None recorded. Surgeries None recorded. Imaging CT, chest, w/o contrast 2023 024 [facility], [address] [facility], [place], [address], 05/01/2024 09:17:07 Medication Orders azithromy joaquim 500 mg tablet 2023 025 [facility][id number], [address], [place], [place], [id number], 07/02/2024 15:41:49 Medrol (Casey) 4 mg tablets in a dose pack 2023 025 [facility] #[id number], [address], [place], [place], [id number], 07/02/2024 15:41:38 Medrol (Casey) 4 mg tablets in a dose pack 2023 024 [facility] #[id number], [address], [place], [place], [id number], 07/02/2024 15:41:05 azithromy joaquim 500 mg tablet 2023 024 [facility] #[id number], [address], [place], [place], [id number], 07/02/2024 15:41:11 Medrol (Casey) 4 mg tablets in a dose pack 2023 024 [facility][id number], [address], [id number], 07/02/2024 15:41:05 Patient TargetsNo targets recorded. Patient Instructions Encounter Date Encounter Id Patient Instructions Last Modified By Organization Details Last Modified Time 02/23/2024 [id number] sore throat: car e instructions geenaanney Not available 02/23/2024 12:44:01 A healthy lifestyle: care instructions jnanney Not available 02/23/2024 12:45:14 frequent urination: care instructions jnanney Not available 02/23/2024 12:44:02 Acute Sinusitis: Care Instructions jnanney Not available 02/23/2024 12:45:14 03/29/2024 [id number] When You Want to Lose Weight: Care Instructions jnanney Not available 03/29/2024 12:15:57 05/09/2024 [id number] A healthy lifestyle: care instructions jnanney Not available 05/09/2024 16:02:39 cough: care instructions jnanney Not available 05/09/2024 16:15:43 07/02/2024 [id number] A healthy lifestyle: care instructions jnanney Not available 07/02/2024 16:02:28 Reason for Referral Vascular Surgeon Referral fo r D-dimer above reference range Referring Physician: Osvaldo Gerber, Family Medicine, Encounter Date: 03/29/2024 Results Created Date Observation Date Name Description Value Unit Range Abnormal Flag Note LastModifiedBy Organization Detail LastModifiedTime 02/23/2002/23/2024 rapid strep group A, throa t Strep negati ve Not Available In-Office Order Internal Use Only DO Not Attach Compendium DO Not Attach Compendium, Do Not Delete/merge, [id number] 02/23/2024 12:18:08 02/23/2002/23/2024 influ warner virus A + B + SARS- CoV-2 (COVI D19) Ag panel , rapid IA, upper respi rator y speci men Flu A negati ve Not Available In-Office Order Internal Use Only DO Not Attach Compendium DO Not Attach Compendium, Do Not Delete/merge, [id number] 02/23/2024 12:18:00 02/23/20 24 02/23/2024 influ warner virus A + B + SARS- CoV-2 (COVI D19) Ag panel , rapid IA, upper respi rator y speci men Flu B negati ve Not Available In-Office Order Internal Use Only DO Not Attach Compendium DO Not Attach Compendium, Do Not Delete/merge, [id number] 02/23/2024 12:18:00 02/23/20 24 02/23/2024 influ warner virus A + B + SARS- CoV-2 (COVI D19) Ag panel , rapid IA, upper respi rator y speci men Rapid SARS CoV 2 Ag, QL IA, respiratory specimen negati ve Not Available In-Office Order Internal Use Only DO Not Attach Compendium DO Not Attach Compendium, Do Not Delete/merge, 02/23/2024 12:18:00 02/23/20 24 02/23/2024 urina lysis , dipst ick Leukocytes Negati ve Not Available In-Office Order Internal Use Only DO Not Attach Compendium DO Not Attach Compendium, Do Not Delete/merge, 02/23/2024 12:22:29 02/23/20 24 02/23/2024 urina lysis , dipst ick Nitrite negati ve Not Available In-Office Order Internal Use Only DO Not Attach Compendium DO Not Attach Compendium, Do Not Delete/merge, 02/23/2024 12:22:29 02/23/20 24 02/23/2024 urina lysis , dipst ick Urobilinogen .2 Not Available In-Of fice Order Internal Use Only DO Not Attach Compendium DO Not Attach Compendium, Do Not Delete/merge, 02/23/2024 12:22:29 02/23/20 24 02/23/2024 urina lysis , dipst ick Protein Trace Not Available In-Office Order Internal Use Only DO Not Attach Compendium DO Not Attach Compendium, Do Not Delete/merge, 02/23/2024 12:22:29 02/23/20 24 02/23/2024 urina lysis , dipst ick pH 5.5 Not Available In-Office Order Internal Use Only DO Not Attach Compendium DO Not Attach Compendium, Do Not Delete/merge, 02/23/2024 12:22:29 02/23/20 24 02/23/2024 urina lysis , dipst ick Blood Negati ve Not Available In-Office Order Internal Use Only DO Not Attach Compendium DO Not Attach Compendium, Do Not Delete/merge, 02/23/2024 12:22:29 02/23/20 24 02/23/2024 urina lysis , dipst ick Specific Lander 1.030 Not Available In-Off ice Order Internal Use Only DO Not Attach Compendium DO Not Attach Compendium, Do Not Delete/merge, 02/23/2024 12:22:29 02/23/20 24 02/23/2024 urina lysis , dipst ick Ketone Negati ve Not Available In-Office Order Internal Use Only DO Not Attach Compendium DO Not Attach Compendium, Do Not Delete/merge, 02/23/2024 12:22:29 02/23/20 24 02/23/2024 urina lysis , dipst ick Bilirubin Small Not Available In-Offic e Order Internal Use Only DO Not Attach Compendium DO Not Attach Compendium, Do Not Delete/merge, 02/23/2024 12:22:29 02/23/20 24 02/23/2024 urina lysis , dipst ick Glucose Negati ve Not Available In-Office Order Internal Use Only DO Not Attach Compendium DO Not Attach Compendium, Do Not Delete/merge, 02/23/2024 12:22:29 02/23/20 24 02/23/2024 urina lysis , dipst ick Appearance Clear Not Available In-Offi ce Order Internal Use Only DO Not Attach Compendium DO Not Attach Compendium, Do Not Delete/merge, 02/23/2024 12:22:29 02/23/20 24 02/23/2024 urina lysis , dipst ick Color Yellow Not Available In-Office Order Internal Use Only DO Not Attach Compendium DO Not Attach Compendium, Do Not Delete/merge, 02/23/2024 12:22:29 03/12/20 24 03/14/2024 TSH+F REE T4 TSH 1.410 uIU/m L 0.450- 4.500 Not Available [facility] ([facility]) [address] [facility], [place], [address], 03/14/2024 08:27:06 03/12/2003/14/2024 TSH+F REE T4 T4,free(dire ct) 1.09 NG/dL 0.82-1 .77 Not Available [facility] ([facility]) [address] [facility], [place], [address], 03/14/2024 08:27:06 03/12/20 24 03/14/2024 COMP. METAB OLIC PANEL (14) glucose 74 mg/dL 70-99 Not Available [facility] ([facility]) [address] [place], [address], 03/14/2024 08:27:07 03/12/20 24 03/14/2024 COMP. METAB OLIC PANEL (14) BUN 11 mg/dL 6-24 Not Available [facility] ([facility]) [address] [place], [address], 03/14/2024 08:27:07 03/12/20 24 03/14/2024 COMP. METAB OLIC PANEL (14) creatinine 0.95 mg/dL 0.57-1 .00 Not Available [facility] ([facility]) [address] [place], [address], 03/14/2024 08:27:07 03/12/20 24 03/14/2024 COMP. METAB OLIC PANEL (14) eGFR 74 mL/mi n/1.7 3 >59 Not Available [facility] ([facility]) [address] [place], [address], 03/14/2024 08:27:07 03/12/20 24 03/14/2024 COMP. METAB OLIC PANEL (14) BUN/creatini ne ratio 12 9-23 Not Available [facility] [address] [place], [address], 03/14/2024 08:27:07 03/12/20 24 03/14/2024 COMP. METAB OLIC PANEL (14) sodium 142 mmol/ L 134-14 4 Not Available [facility] ([facility]) [address] [place], [address], 03/14/2024 08:27:07 03/12/20 24 03/14/2024 COMP. METAB OLIC PANEL (14) potassium 4.7 mmol/ L 3.5-5. 2 Not Available [facility]) [address] [facility] [place], [address], 03/14/2024 08:27:07 03/12/20 24 03/14/2024 COMP. METAB OLIC PANEL (14) chloride 104 mmol/ L 96-106 Not Available [facility]) [address] [facility] [place], [address], 03/14/2024 08:27:07 03/12/20 24 03/14/2024 COMP. METAB OLIC PANEL (14) carbon dioxide, total 23 mmol/ L 20-29 Not Available [facility]) [address] [facility], [place], [address], 03/14/2024 08:27:07 03/12/20 24 03/14/2024 COMP. METAB OLIC PANEL (14) calcium 9.0 mg/dL 8.7-10 .2 Not Available [facility]) [address] [facility] [place], [address], 03/14/2024 08:27:07 03/12/20 24 03/14/2024 COMP. METAB OLIC PANEL (14) protein, total 6.9 g/dL 6.0-8. 5 Not Available [facility]) [address] [facility], [place], [address], 03/14/2024 08:27:07 03/12/20 24 03/14/2024 COMP. METAB OLIC PANEL (14) albumin 4.2 g/dL 3.9-4. 9 Not Available [facility]) [address] [facility] [place], [address], 03/14/2024 08:27:07 03/12/20 24 03/14/2024 COMP. METAB OLIC PANEL (14) globulin, total 2.7 g/dL 1.5-4. 5 Not Available [facility]) [address] [facility], [place], [address], 03/14/2024 08:27:07 03/12/20 24 03/14/2024 COMP. METAB OLIC PANEL (14) bilirubin, total <0.2 mg/dL 0.0-1. 2 Not Available [facility] ([facility]) [address] [facility], [place], [address], 03/14/2024 08:27:07 03/12/20 24 03/14/2024 COMP. METAB OLIC PANEL (14) alkaline phosphatase 61 IU/L 44-121 Not Available [facility] [address] [facility], [place], [address], 03/14/2024 08:27:07 03/12/20 24 03/14/2024 COMP. METAB OLIC PANEL (14) AST (SGOT) 20 IU/L 0-40 Not Available [facility]) [address] [facility], [place], [address], 03/14/2024 08:27:07 03/12/20 24 03/14/2024 COMP. METAB OLIC PANEL (14) ALT (SGPT) 16 IU/L 0-32 Not Available [facility]) [address] [facility], [place], [address], 03/14/2024 08:27:07 03/12/20 24 03/14/2024 CBC WITH DIFFE RENTI AL/PL ATELE T WBC 8.3 x10e3 /uL 3.4-10 .8 Not Available [facility]) [address] [facility], [place], [address], 03/14/2024 08:27:08 03/12/20 24 03/14/2024 CBC WITH DIFFE RENTI AL/PL ATELE T RBC 4.67 x10e6 /uL 3.77-5 .28 Not Available [facility]) [address] [facility], [place], [address], 03/14/2024 08:27:08 03/12/2003/14/2024 CBC WITH DIFFE RENTI AL/PL ATELE T hemoglobin 13.4 g/dL 11.1-1 5.9 Not Available [facility]) [address] [facility], [place], [address], 03/14/2024 08:27:08 03/12/2003/14/2024 CBC WITH DIFFE RENTI AL/PL ATELE T hematocrit 41.3 % 34.0-4 6.6 Not Available [facility]) [address] [facility], [place], [address], 03/14/2024 08:27:08 03/12/2003/14/2024 CBC WITH DIFFE RENTI AL/PL ATELE T MCV 88 fL 79-97 Not Available [facility]) [address] [facility], [place], [address], 03/14/2024 08:27:08 03/12/2003/14/2024 CBC WITH DIFFE RENTI AL/PL ATELE T MCH 28.7 pg 26.6-3 3.0 Not Available [facility]) [address] [facility], [place], [address], 03/14/2024 08:27:08 03/12/2003/14/2024 CBC WITH DIFFE RENTI AL/PL ATELE T MCHC 32.4 g/dL 31.5-3 5.7 Not Available [facility]) [address] [facility], [place], [address], 03/14/2024 08:27:08 03/12/20 24 03/14/2024 CBC WITH DIFFE RENTI AL/PL ATELE T RDW 14.1 % 11.7-1 5.4 Not Available [facility]) [address], [place], [address], 03/14/2024 08:27:08 03/12/2003/14/2024 CBC WITH DIFFE RENTI AL/PL ATELE T platelets 242 x10e3 /uL 150-45 0 Not Available [facility]) [address] [facility], [place], [address], 03/14/2024 08:27:08 03/12/2003/14/2024 CBC WITH DIFFE RENTI AL/PL ATELE T neutrophils 60 % notest ab. Not Available [facility]) [address] [facility], [place], [address], 03/14/2024 08:27:08 03/12/2003/14/2024 CBC WITH DIFFE RENTI AL/PL ATELE T lymphs 29 % notest ab. Not Available [facility]) [address] [facility], [place], [address], 03/14/2024 08:27:08 03/12/2003/14/2024 CBC WITH DIFFE RENTI AL/PL ATELE T monocytes 8 % notest ab. Not Available [facility]) [address] [facility], [place], [address], 03/14/2024 08:27:08 03/12/2003/14/2024 CBC WITH DIFFE RENTI AL/PL ATELE T eos 2 % notest ab. Not Available [facility]) [address] [facility], [place], [address], 03/14/2024 08:27:08 03/12/2003/14/2024 CBC WITH DIFFE RENTI AL/PL ATELE T basos 1 % notest ab. Not Available [facility]) [address] [facility], [place], [address], 03/14/2024 08:27:08 09/24/20 24 03/14/2024 CBC WITH DIFFE RENTI AL/PL ATELE T neutrophils (absolute) 5.0 x10e3 /uL 1.4-7. 0 Not Available [facility]) [address] [facility], [place], [address], 03/14/2024 08:27:08 03/12/20 24 03/14/2024 CBC WITH DIFFE RENTI AL/PL ATELE T lymphs (absolute) 2.4 x10e3 /uL 0.7-3. 1 Not Available [facility] ([facility]) [address] [place], [address], 03/14/2024 08:27:08 03/12/20 24 03/14/2024 CBC WITH DIFFE RENTI AL/PL ATELE T monocytes(ab solute) 0.6 x10e3 /uL 0.1-0. 9 Not Available [facility] ([facility]) [address] [place], [address], 03/14/2024 08:27:08 03/12/20 24 03/14/2024 CBC WITH DIFFE RENTI AL/PL ATELE T eos (absolute) 0.2 x10e3 /uL 0.0-0. 4 Not Available [facility] ([facility]) [address] [place], [address], 03/14/2024 08:27:08 03/12/20 24 03/14/2024 CBC WITH DIFFE RENTI AL/PL ATELE T baso (absolute) 0.1 x10e3 /uL 0.0-0. 2 Not Available [facility] ([facility]) [address] [place], [address], 03/14/2024 08:27:08 03/12/20 24 03/14/2024 CBC WITH DIFFE RENTI AL/PL ATELE T immature granulocytes 0 % notest ab. Not Available [facility]) [address] [place], [address], 03/14/2024 08:27:08 03/12/20 24 03/14/2024 CBC WITH DIFFJerry RUBIO AL/PL ATELE T immature grans (abs) 0.0 x10e3 /uL 0.0-0. 1 Not Available [facility]) [address] [facility], [place], [address], 03/14/2024 08:27:08 05/09/20 24 05/09/2024 REGIO NAL PANEL 8 class description COMMEN T Level s of Speci fic IgE Class Descr iptio n of Class ----- ----- ----- ----- ----- -- ----- ----- ----- ----- ----- < 0.10 0 Negat annie 0.10 - 0.31 0/I Equiv ocal/ Low 0.32 - 0.55 I Low 0.56 - 1.40 II Moder ate 1.41 - 3.90 III High 3.91 - 19.00 IV Very High 19.01 - 100.0 0 V Very High >100. 00 Very High Not Available [facility]) [address] [facility], [place], [address], 05/16/2024 17:07:59 05/09/20 24 05/15/2024 REGIO NAL PANEL 8 G775-VyX waqar, white <0.10 Not Available [facility] [address] [facility], [place], [address], 05/16/2024 17:07:59 05/09/2005/15/2024 REGIO NAL PANEL 8 A029-ViK cottonwood <0.10 Not Available [facility] [address] [facility], [place], [address], 05/16/2024 17:07:59 05/09/20 24 05/15/2024 REGIO NAL PANEL 8 P762-FqT cypress, german <0.10 Not Available [facility]) [address], [place], [address], 05/16/2024 17:07:59 05/09/20 24 05/15/2024 REGIO NAL PANEL 8 V349-KbN elm, qatari <0.10 Not Available [facility]) [address], [place], [address], 05/16/2024 17:07:59 05/09/20 24 05/15/2024 REGIO NAL PANEL 8 G715-KyP oak, white <0.10 Not Available [facility]) [address], [place], [address], 05/16/2024 17:07:59 05/09/2005/15/2024 REGIO NAL PANEL 8 U368-HaA olive tree <0.10 Not Available [facility]) [address], [place], [address], 05/16/2024 17:07:59 05/09/2005/15/2024 REGIO NAL PANEL 8 w966-LhM bermuda grass <0.10 Not Available [facility] [address] [facility], [place], [address], 05/16/2024 17:07:59 05/09/2005/15/2024 REGIO NAL PANEL 8 q289-VqK barb grass <0.10 Not Available [facility] [facility] [address] [facility], [place], [address], 05/16/2024 17:07:59 05/09/20 24 05/15/2024 REGIO NAL PANEL 8 b053-GkH bluegrass, kent[place] <0.10 Not Available [facility] [address] [facility], [place], [address], 05/16/2024 17:07:59 05/09/20 24 05/15/2024 REGIO NAL PANEL 8 I320-AuW cocklebur 2.38 kU/L classi ii abnormal Not Available [facility]) [address] [place], [address], 05/16/2024 17:07:59 05/09/2005/15/2024 REGIO NAL PANEL 8 L770-BvP kochia <0.10 kU/L class0 Not Available [facility] [address] [place], [address], 05/16/2024 17:07:59 05/09/2005/15/2024 REGIO NAL PANEL 8 Z889-IkG rough marshelder 0.83 kU/L classi i abnormal Not Available [facility]) [address] [place], [address], 05/16/2024 17:07:59 05/09/2005/15/2024 REGIO NAL PANEL 8 B461-OjJ pigweed, common <0.10 kU/L class0 Not Available [facility] [address] [place], [address], 05/16/2024 17:07:59 05/09/2005/15/2024 REGIO NAL PANEL 8 A933-BfI thistle, rwandan <0.10 kU/L class0 Not Available [facility] [address] [place], [address], 05/16/2024 17:07:59 05/09/2005/15/2024 REGIO NAL PANEL 8 J373-LvU wormwood 3.46 kU/L classi ii abnormal Not Available [facility]) [address] [place], [address], 05/16/2024 17:07:59 05/09/2005/1505/15/2024 REGIO NAL PANEL 8 N185-SbY sheep sorrel <0.10 kU/L class0 Not Available [facility] [address] [place], [address], 05/16/2024 17:07:59 05/09/20 24 05/16/2024 REGIO NAL PANEL 8 O658-WmI mesquite <0.10 Not Available [facility] [address] [place], [address], 05/16/2024 17:07:59 05/09/20 24 05/16/2024 REGIO NAL PANEL 8 N709-YaN careless weed <0.10 Not Available [facility] [address] [place], [address], 05/16/2024 17:07:59 05/09/20 24 05/16/2024 REGIO NAL PANEL 8 K449-WiX ragweed, false 1.02 kU/L classi i abnormal Not Available [facility]) [address] [place], [address], 05/16/2024 17:07:59 05/09/20 24 05/16/2024 REGIO NAL PANEL 8 I909-BjX ragweed, western 7.48 kU/L classi v abnormal Not Available [facility]) [address] [place], [address], 05/16/2024 17:07:59 05/09/20 24 05/16/2024 REGIO NAL PANEL 8 Y990-PtD lenscale <0.10 Not Available [facility] [address] [place], [address], 05/16/2024 17:07:59 05/09/20 24 05/09/2024 influ warner virus A + B + SARS- CoV-2 (COVI D19) Ag panel , rapid IA, upper respi rator y speci men Flu A negati ve Not Available In-Office Order Internal Use Only DO Not Attach Compendium DO Not Attach Compendium, Do Not Delete/merge, [id number] 05/09/2024 15:42:33 05/09/20 24 05/09/2024 influ wraner virus A + B + SARS- CoV-2 (COVI D19) Ag panel , rapid IA, upper respi rator y speci men Flu B negati ve Not Available In-Office Order Internal Use Only DO Not Attach Compendium DO Not Attach Compendium, Do Not Delete/merge, [id number] 05/09/2024 15:42:33 05/09/20 24 05/09/2024 influ warner virus A + B + SARS- CoV-2 (COVI D19) Ag panel , rapid IA, upper respi rator y speci men Rapid SARS CoV 2 Ag, QL IA, respiratory specimen negati ve Not Available In-Office Order Internal Use Only DO Not Attach Compendium DO Not Attach Compendium, Do Not Delete/merge, [id number] 05/09/2024 15:42:33 07/02/19 25 07/03/2024 SEDIM ENTAT ION RATE- WESTE RGREN sedimentatio n rate-westerg radha 33 mm/HR 0-32 above high normal Not Available [facility] [address] [place], [address], 07/03/2024 15:13:52 07/02/19 25 07/03/2024 JACOB+R F QN JACOB direct NEGATI VE negati ve Not Available [facility] ([facility]) [address] [place], [address], 07/03/2024 15:13:53 07/02/19 25 07/03/2024 JACOB+R F QN rheumatoid factor (rf) <10.0 IU/mL <14.0 Not Available [facility] [address] [place], [address], 07/03/2024 15:13:53 09/04/07 2402/27/2024 XR, chest No observ ation record ed. [facility] [address], [place], [address], 02/27/2024 09:48:39 02/29/2002/29/2024 XR, chest No observ ation record ed. [facility] [address] [facility] [address], [place], [address], 03/01/2024 09:14:05 03/21/2003/13/2024 US, duple x, lower extre mity No observ ation record ed. [facility] Not Available 2023 14:33:43 04/10/2004/09/2024 MAMMO , scree ashutosh, digit al, bilat eral No observ ation record ed. [facility] [address], [place], [address], 04/11/2024 10:26:58 05/07/2005/07/2024 XR, chest No observ ation record ed. [facility] [address], [place], [address], 05/07/2024 12:55:21 05/12/2005/11/2024 XR, chest No observ ation record ed. [facility] [address], [place], [address], 05/13/2024 08:47:28 05/12/2005/11/2024 CT, chest , w/o contr ast No observ ation record ed. [facility] [address], [place], [address], 05/13/2024 08:45:42 06/04/2006/04/2024 MAMMO , diagn ostic , unila teral No observ ation record ed. [facility] [address], [place], [address], 06/11/2024 09:18:11 Result Notes None recorded. Problems Name Problem SNOMED Code Status Onset Date Resolution Date Notes Provider Name and Address Organization Details Recorded Time Upper respirato ry infection 60769600 Active KRISTINA Kap[place] null, [place] [facility] 2 14:28:16 Chest pain 29772147 Completed 201311/02/2013 KRISTINA [place] [facility] 2 14:28:16 Ulcerativ e colitis 69819521 Active 2016 Tabitha Ortega [place] [facility] 1 14:45:32 Cyst of kidney 092566204 Active 2018 Tabitha Ortega [place] [facility] 1 14:45:32 Palpitati ons 49111854 Active 2016 STONEY [place], [place] - [facility] 1 14:45:32 Mitral valve prolapse 756659492 Active 2016 Tabitha Orte[place] [facility] 1 14:45:32 Dizziness 531093353 Active 2016 Tabitha Or[place] [facility] 1 14:45:32 Microscop ic hematuria 165254376 Completed 201105/24/2012 KRISTINA [place] [facility] 2 14:28:16 Atrial tachycard ia 333846985 Active 2016 Tabitha Or[place] [facility] 1 14:45:32 Premature atrial contracti on 562646898 Active 2016 Tabitha Orte[place] [facility] 1 14:45:32 Ventricul ar premature beats 62594123 Active 2016 Tabitha Orte[place], [place] [facility] 1 14:45:32 COVID-19 036621475 Active 2020 Jil H[place] [facility] 1 18:16:51 History of SARS-CoV- 2 [id number] 4508162 Active 2020 KRISTINA [place] [facility] 2 14:27:01 Deep venous thrombosi s of lower extremity 050620925 Active Chastity Rodriguez R[place] [facility] 2 14:31:01 Breast lump 36553753 Active Chastity Rodriguez R[place] [facility] 2 14:28:16 Shoulder syndrome 416171124 Active Chastity [place] R[place] [facility] 2 14:28:16 Problem Notes None recorded. Procedures Surgical History Date Name Laterality Status Provider Name and Address Organization Details Recorded Time 2023 Date of Last Pap Smear completed Jil Hsu MA PR Clair [facility] 4 18:04:08 2021 Date of Last Mammogram completed STONEY Candelaria [facility] 4 10:41:17 2021 Most Recent Mammogram completed Li Lawson RN [facility] 2 13:28:36 2018 esophagogastroduodenoscopy completed Malcom Waldron MA [facility] 9 09:26:08 2018 Colonoscopy completed Oneida Waldron MA [facility] 9 13:20:34 2009 Nephrectomy completed Li Lawson RN [facility] 5 14:39:49 2000 Knee Surgery completed Li Lawson RN [facility] 5 14:39:49 1995 Hernia Repair completed Li Lawson RN [facility] 5 14:39:49 Tubal Ligation completed Li Lawson RN [facility] 5 14:39:49 Imaging Results Imaging Date Name Status [facility]Modified by [facility] Details LastModified Time 02/27/2024 XR, chest completed dtole [facility] [address], [place], [address], 02/27/2024 09:48:39 02/29/2024 XR, chest completed [address] [facility] [place], [address], 03/01/2024 09:14:05 03/13/2024 US, duplex, lower extremity completed BAR[facility] Information not available 03/21/2024 14:33:43 04/09/2024 MAMMO, screening, digital, bilateral completed [facility] [address], [place], [address], 04/11/2024 10:26:58 05/07/2024 XR, chest completed [place] [address] [place], [address], 05/07/2024 12:55:21 05/11/2024 XR, chest completed [address], [address], 05/13/2024 08:47:28 05/11/2024 CT, chest, w/o contrast completed [place] [address], [place], [address], 05/13/2024 08:45:42 06/04/2024 MAMMO, diagnostic, unilateral completed [facility] [address], [place], [address], 06/11/2024 09:18:11 Procedure Notes None recorded. Medical Equipment None Reported. Allergies Allergen ID Allergen Name Allergen Category Reaction Reaction Severity Criticality Documentation Date Start Date Code Code System Note Provider Name and Address Organization Details Recorded Time 055801 prochlorp erazine medicatio n Not available Not available Not available 03/10/2021 8704 RxNorm Other react ions and sever ities : 'Unkn own'. Not Available Not Available Not Available 449091 codeine medicatio n nausea vomiting mild mild Not available 03/10/20212014 2670 RxNorm Not Available Not Available Not Available 385635 meperidin e medicatio n nausea vomiting mild mild Not available 03/10/20212014 6754 RxNorm Not Available Not Available Not Available Medications Name Sig Start Date Stop Date Status Note LastModified by Organization Details LastModified Time buspirone 5 mg tablet Take 1 tablet twice a day by oral route for 90 days. 08/19 completed Not Available Not Available Not Available venlafaxine ER 37.5 mg capsule,ext ended release 24 hr 03/29 completed Not Available Not Available Not Available prednisone 10 mg tablet 03/10 completed Not Available Not Available Not Available doxycycline hyclate 100 mg capsule 100 mg twice a day by oral route. 03/10 completed Not Available Not Available Not Available clindamycin HCl 300 mg capsule TAKE 1 CAPSULE BY MOUTH EVERY 6 HOURS FOR 10 DAYS 05/12 completed Not Available Not Available Not Available azithromyci n 250 mg tablet active Not Available Not Available Not Available fluconazole 200 mg tablet Take 1 tablet every 72 hours by oral route. 08/15 completed Not Available Not Available Not Available meloxicam 15 mg tablet TAKE ONE TABLET BY MOUTH DAILY 03/10 completed Not Available Not Available Not Available ondansetron HCl 4 mg tablet TAKE ONE TABLET BY MOUTH EVERY 6 HOURS 03/10 completed Not Available Not Available Not Available prednisone 20 mg tablet TAKE 1 TABLET BY MOUTH TWICE DAILY 03/12 completed Not Available Not Available Not Available Anucort-HC 25 mg suppository active Not Available Not Available Not Available metronidazo le 500 mg tablet active Not Available Not Available Not Available ciprofloxac in 500 mg tablet TAKE 1 TABLET BY MOUTH EVERY 12 HOURS FOR 10 DAYS 09/09 completed Not Available Not Available Not Available amoxicillin 875 mg tablet TAKE 1 TABLET BY MOUTH EVERY 12 HOURS FOR 7 DAYS 11/26 completed Not Available Not Available Not Available Nortrel 135 (28) 1 mg-35 mcg tablet TAKE 1 TABLET BY MOUTH EVERY DAY FOR 21 DAYS 12/24 completed Not Available Not Available Not Available colesevelam 625 mg tablet TAKE 1 TABLET BY MOUTH THREE TIMES DAILY active Not Available Not Available No t Available benzonatate 100 mg capsule TAKE 1 CAPSULE BY MOUTH TWICE DAILY NEEDED FOR COUGH 11/26 completed Not Available Not Available Not Available cephalexin 500 mg capsule TK 1 C PO Q 8 H FOR 10 DAYS UTD 05/08 completed Not Available Not Available Not Available Nortrel 1/35 (21) 1 mg-35 mcg tablet Take 1 tablet(s) every day by oral route for 21 days. 08/13 completed Not Available Not Available Not Available lansoprazol e 30 mg capsule,del ayed release active Not Available Not Available Not Available omeprazole 20 mg capsule,del ayed release TAKE 1 CAPSULE BY MOUTH EVERY DAY active Not Available Not Available No t Available furosemide 20 mg tablet TAKE 1 TABLET BY MOUTH EVERY DAY 12/24 completed Not Available Not Available Not Available norethindro ne acetate 5 mg tablet active Not Available Not Available Not Available methylpredn isolone 4 mg tablets in a dose pack FOLLOW PACKAGE DIRECTION S 07/02 completed Not Available Not Available Not Available albuterol sulfate HFA 90 mcg/actuati on aerosol inhaler 2 {puff}s by inhalatio n route. 01/21 completed Not Available Not Available Not Available naproxen 500 mg tablet TAKE 1 TABLET BY MOUTH TWICE DAILY NEEDED FOR PAIN active Not Available Not Available No t Available amoxicillin 875 mg-potassiu m clavulanate 125 mg tablet TAKE 1 TABLET BY MOUTH EVERY 12 HOURS FOR 10 DAYS 07/28 completed Not Available Not Available Not Available neomycin-po lymyxin-hyd rocort 3.5 mg-10,000 unit/mL-1 % ear drops,susp SHAKE LIQUID AND INSTILL 4 DROPS TO AFFECTED EAR THREE TIMES DAILY 05/23 completed Not Available Not Available Not Available azithromyci n 500 mg tablet TAKE 1 TABLET BY MOUTH DAILY FOR 3 DAYS 07/02 completed Not Available Not Available Not Available Ciprodex 0.3 %-0.1 % ear drops,suspe nsion INSTILL 4 DROPS INTO AFFECTED EAR(S) BY OTIC ROUTE 2 TIMES PER DAY FOR 7 DAYS 07/28 completed Not Available Not Available Not Available cholestyram ine (with sugar) 4 gram powder for susp in a packet MIX AND DRINK 1 PACKET BY MOUTH THREE TIMES DAILY WITH MEALS 03/10 completed Not Available Not Available Not Available metoprolol tartrate 25 mg tablet Take 1 tablet by mouth twice a day active Not Available Not Available No t Available nitrofurant oin monohydrate /macrocryst als 100 mg capsule TAKE 1 CAPSULE BY MOUTH EVERY 12 HOURS FOR 7 DAYS 01/11 completed Not Available Not Available Not Available Nortrel 35 (21) 06/15 completed Not Available Not Available Not Available diclofenac 1 % topical gel VERONICA 2 GRAMS EXT AA QID 03/10 completed Not Available Not Available Not Available Xarelto 20 mg tablet Take 1 tablet every day by oral route for 90 days. 12/24 completed Not Available Not Available Not Available Xarelto DVT-PE Treatment 30-Day Starter 15 mg(42)-20 mg(9) tablet pack 05/26 completed Not Available Not Available Not Available Ubrelvy 100 mg tablet Take by oral route for 30 days. 2024 active Not Available Not Available Not Avai lable Paxlovid 300 mg (150 mg x 2)-100 mg tablets in a dose pack TAKE 2 NIRMATREL VIR TABLETS AND 1 RITONAVIR TABLET TOGETHER BY MOUTH TWICE DAILY FOR 5 DAYS 05/23 completed Not Available Not Available Not Available Vitals Date Recorded Body height Oxygen saturation Oxygen saturation in Arterial blood by Pulse oximetry Heart rate Systolic blood pressure Diastolic blood pressure Provider Name and Address Organization Details Last Updated DateTime 4 143.51 cm 98 % 98 % 53 /min 105 mm[Hg] 68 mm[Hg] Brittanie Serrano MA [facility] 4 12:17:49 Date Recorded Body height Body mass index (BMI) Body weight Oxygen saturation Oxygen saturation in Arterial blood by Pulse oximetry Heart rate Respiratory rate Systolic blood pressure Diastolic blood pressure Provider Name and Address Organization Details Last Updated DateTime 4 143.51 cm 26.4 kg/m2 26195.3 7 g 98 % 98 % 64 /min 16 /min 111 mm[Hg] 64 mm[Hg] Angelina Falcon MA [place] - [facility] 4 16:44:50 Date Recorded Body height Body mass index (BMI) Body weight Oxygen saturation Oxygen saturation in Arterial blood by Pulse oximetry Heart rate Systolic blood pressure Diastolic blood pressure Provider Name and Address Organization Details Last Updated DateTime 4 143.51 cm 26.7 kg/m2 58461.7 8 g 99 % 99 % 53 /min 108 mm[Hg] 66 mm[Hg] Brittanie [facility]errano [facility] 4 11:57:27 Date Recorded Body height Body mass index (BMI) Body weight Oxygen saturation Oxygen saturation in Arterial blood by Pulse oximetry Heart rate Systolic blood pressure Diastolic blood pressure Provider Name and Address Organization Details Last Updated DateTime 4 143.51 cm 26.4 kg/m2 23859.0 8 g 98 % 98 % 61 /min 121 mm[Hg] 69 mm[Hg] Jil Hsu MA [facility] 4 15:44:05 Date Recorded Body height Body mass index (BMI) Body weight Oxygen saturation Oxygen saturation in Arterial blood by Pulse oximetry Heart rate Systolic blood pressure Diastolic blood pressure Provider Name and Address Organization Details Last Updated DateTime 5 143.51 cm 27.8 kg/m2 56175.6 4 g 97 % 97 % 84 /min 99 mm[Hg] 63 mm[Hg] Brittanie Serrano MA [facility] 5 15:43:30 Social History Question Answer Notes LastModified by [employer] Details LastModified Time Tobacco Smoking Status Never Smoker Karol Tompkins MA [facility] 06/20/2014 15:11:16 What Is Your Level Of Alcohol Consumption? None Information not available 05/08/2020 Are You Blind Or Do You Have Difficulty Seeing? No Information not available 01/11/2021 What Is Your Level Of Caffeine Consumption? Occasional Information not available 01/11/2021 How Much Tobacco Do You Chew? None Information not available 05/08/2020 In The 14 Days Before Symptom Onset, Have You Had Close Contact With A Laboratory-confir med COVID-19 While That Case Was Ill? No Information not available 08/13/2020 In The 14 Days Before Symptom Onset, Have You Had Close Contact With A Person Who Is Under Investigation For COVID-19 While That Person Was Ill? No Information not available 08/13/2020 Have You Been To An Area Known To Be High Risk For COVID-19? No Information not available 08/13/2020 Are You Currently Employed? Yes Information not available 09/09/2022 Are You Deaf Or Do You Have Serious Difficulty Hearing? No Information not available 01/11/2021 What Type Of Diet Are You Following? REGULAR Information not available 05/08/2020 Which Illicit Or Recreational Drugs Have You Used? None Information not available 05/08/2020 Do You Or Have You Ever Used E-cigarettes Or Vape? Never Used Electronic Cigarettes Information not available 12/11/2019 What Is Your Occupation? [employer] Information not available 09/09/2022 Are There Any Guns Present In Your Home? No Information not available 01/11/2021 Marital Status Informatio n not available 05/08/2020 What Was The Date Of Your Most Recent Tobacco Screening? 07/02/2024 Information not available 07/02/2024 How Many Children Do You Have? 2 Information not available 08/10/2015 What Is Your Relationship Status? Information not available 08/10/2015 Do You Use Your Seat Belt Or Car Seat Routinely? Yes Information not available 01/11/2021 Do You Have Smoke And Carbon Monoxide Detectors In Your Home? Yes Information not available 01/11/2021 Are You Passively Exposed To Smoke? No Information no t available 01/11/2021 Do You Or Have You Ever Used Smokeless Tobacco? Never Used Smokeless Tobacco Information not available 12/11/2019 How Much Tobacco Do You Smoke? No Information not available 12/11/2019 General Stress Level High Information not available 05/08/2020 Do You Feel Stressed (tense, Restless, Nervous, Or Anxious, Or Unable To Sleep At Night)? [id number] Information not available 09/09/2022 Do You Use Any Illicit Or Recreational Drugs? No Information not available 01/11/2021 Has Tobacco Cessation Counseling Been Provided? No Information not available 02/03/2021 On What Date Was Tobacco Cessation Counseling Provided? 07/02/2024 Information not available 07/02/2024 Do You Or Have You Ever Used Any Other Forms Of Tobacco Or Nicotine? No Information not available 02/03/2021 Sex: Female Functional Status Question Answer Note LastModified by Organization D etails LastModified Time Are you able to care for yourself? Yes Information n ot available 01/11/2021 What is your exercise level? None Information not available 09/09/2022 Mental Status None recorded. Family History Relationship Description Onset Age of this Age Resolved Age Notes LastModified by Organization Details LastModified Time Mother Asthma [email or web address] Not availabl e 03/03/2016 14:21:57 Mother Migraine [email or web address] Not availa ble 03/03/2016 14:21:57 Father History of hypertension [email or web address] Not available 0 03/03/2016 14:21:57 Notes:no breast ca hx Medical History Condition Response Coronary Artery Disease N Other N High Blood Pressure N Atrial Fibrillation N Thyroid Problems N Kidney or Bladder Problems N GI Problems N Depression N COPD N Blood Clots N Skin Problems N Eating Disorder N Anemia N Gastrointestinal Disease Y Heart Attack ([place]) N Anxiety Disorder N Diabetes N Muscle, Joint, or Bone Problems N Heart Problems/Murmur Y Seizures/Epilepsy N Acid Reflux (GERD) N Cancer N Stroke N Asthma N Allergies N ADHD N Substance Abuse N High Cholesterol N Hepatitis N Liver Disease N Heart Disease Y Schizophrenia N Headaches N Heart Failure N Osteoporosis N Gynecological History Statement/Question Response Abnormal Pap N Date of Last Mammogram 02/02/2022 Flow Moderate Date of LMP 01/06/2022 Date of Last Pap Smear 02/12/2024 Duration of Flow (days) 5 Current Control Method Tubal Ligat ion Most Recent Mammogram 02/02/2022 LMP Approximate Obstetrics History GPAL:G 4 P 2 0 2 2 Type Value Full Term 2 Spontaneous 2 Living 2 Total 4 Immunizations Vaccine Type Date Status Note Provider Nam e and Address Organization Details Recorded Time DTaP 1975 completed Not Available [facility] 10/07/2022 16:50:08 DTaP 02/14/1976 completed Not Available [facility] 10/07/2022 16:50:08 DTaP 03/29/1976 completed Not Available [facility] 10/07/2022 16:50:08 DTaP 08/22/1977 completed Not Available [facility] 10/07/2022 16:50:08 DTaP 01/20/1981 completed Not Available [facility] 10/07/2022 16:50:08 DTaP 01/15/1991 completed Not Available [facility] 10/07/2022 16:50:08 IPV 03/29/1976 completed Not Available [facility] 10/07/2022 16:50:08 IPV 06/07/1976 completed Not Available [facility] 10/07/2022 16:50:08 IPV 08/22/1977 completed Not Available [facility] 10/07/2022 16:50:08 IPV 06/16/1979 completed Not Available [facility] 10/07/2022 16:50:08 IPV 01/20/1991 completed Not Available [facility] 10/07/2022 16:50:08 MMR 01/15/1991 completed Not Available [facility] 10/07/2022 16:50:08 measles 05/23/1977 completed Not Available [facility] 10/07/2022 16:50:08 mumps 01/10/1977 completed Not Available [facility] 10/07/2022 16:50:08 rubella 10/12/1976 completed Not Available [facility] 10/07/2022 16:50:08 COVID-19, mRNA, LNP-S, PF, 100 mcg/0.5mL dose or 50 mcg/0.25mL dose 07/02/2021 completed Not Available [facility] 16:50:08 COVID-19, mRNA, LNP-S, bivalent, PF, 50 mcg/0.5 mL or 25mcg/0.25 mL dose 04/15/2022 completed Not Available [facility] 16:50:08 Tdap 07/28/2021 completed Not Available [facility] 10/07/2022 16:50:08 COVID-19, mRNA, LNP-S, PF, 100 mcg/0.5mL dose or 50 mcg/0.25mL dose 07/30/2021 completed Not Available [facility] 16:50:08 Hep A, ped/adol, 2 dose 10/19/2023 completed Brittanie Serr[place], [place] [facility] 10/19/2023 15:34:50 Hep A, adult 11/27/2023 completed Brittanie [place]err[place] [facility] 11/27/2023 15:51:53 Past Encounters Encounter ID Performer Location Encounter Start Date Encounter Closed Date Diagnosis/Indication Diagnosis SNOMED-CT Code Diagnosis ICD10 Code Diagnosis Note [id number] [facility] [address] [place] [address] 06/20/2014 14:55:29 06/24/2014 16:31:12 Shoulder syndrome [id number] MD Keli Casillas ([place] [address]) [address] [facility] [place] [address] 08/10/2015 15:21:05 08/11/2015 12:04:47 Gynecologic examination 93710252 Z01.419 Screening for malignant neoplasm of breast 697605231 Z12.39 [id number] [facility] [address] [place] [address] 03/03/2016 14:10:22 03/03/2016 15:11:55 Breast lump 62550364 N63 [id number] [facility] [address] [place] [address] 11/15/2016 13:55:10 11/15/2016 15:21:30 Nausea and vomiting 98497744 R11.2 Benign par oxysmal positional vertigo 119674779 H81.13 [id number] MD Keli Casillas ([place] [address]) [address] [facility] [place] [address] 06/20/2017 10:11:40 06/21/2017 15:05:53 Gynecologic examination 46426800 Z01.419 Screening for malignant neoplasm of breast 850883427 Z12.39 [id number] [facility] [address] [place] [address] 10/19/2017 15:20:17 10/19/2017 16:40:58 Standard chest X-ray abnormal 001211155 R93.8 Breast lump 70921918 N63 .0 Persistent cough 4049569 02 R05 Dysuria 80770201 R30.0 [id number] [facility] [address] [place] [address] 08/15/2018 11:13:29 08/15/2018 12:30:41 Thoracic back pain 081852457 M54.6 [id number] Nicky Hsu MD [place] [address] OB [address] [facility] [place] [address] 08/31/2018 11:27:42 09/03/2018 08:27:41 Gynecologic examination 68616207 Z01.419 Screening for malignant neoplasm of breast 141961073 Z12.39 Urinary tr act infectious disease 35483620 N39.0 [id number] Osvaldo Gerber PA-C [facility] [address] [place] [address] 09/26/2019 13:20:36 09/27/2019 09:09:43 Urinary tract infectious disease 24123272 N39.0 [id number] Osvaldo Gerber PA-C [facility] [address] [place] [address] 12/11/2019 09:43:14 12/11/2019 11:57:49 Adult health examination 897898888 Z00.00 [id number] ОЛЬГА [place] [address] [place] [address] 02/20/2020 10:18:56 02/25/2020 13:38:51 Suspected COVID-19 837969076 Z03.818 D/w pt the current pandemic of COVID-19 and call for social isolation in order to blunt the curve and minimize risk and spread. Encouraged patient and family to take restrictio ns seriously. They have verbalized understand ing of such. Viral syndrome 272532648 B34.9 [id number] Osvaldo Gerber PA-C [facility] [address] [place] [address] 05/08/2020 16:49:17 05/08/2020 17:20:22 Recurrent acute sinusitis 199381867 J01.01 [id number] ОЛЬГА [place] [address] [place] [address] 05/11/2020 13:49:11 05/12/2020 09:15:50 Suspected COVID-19 639097556 Z03.818 D/w pt the current pandemic of COVID-19 and call for social isolation in order to blunt the curve and minimize risk and spread. Encouraged patient and family to take restrictio ns seriously. They have verbalized understand ing of such. Viral syndrome 346047036 B34.9 [id number] Osvaldo Gerber PA-C [facility] [address] [place] [address] 08/13/2020 10:00:09 08/14/2020 06:50:31 Pain in right hip joint 3080162285 38427 M25.551 Neck pain 78977151 M54.2 [id number] MD Keli Casillas [address] [facility] [address] [place] [address] 10/19/2020 11:51:27 10/20/2020 13:23:59 Dysuria 95089978 R30.0 Gynecologi c examination 38008114 Z01.419 Screening for malignant neoplasm of breast 540809941 Z12.39 [id number] Osvaldo Gerber PA-C [facility] [address] [place] [address] 01/11/2021 10:08:23 01/11/2021 16:52:45 Upper respiratory infection 55464710 J00 [id number] Osvaldo Gerber PA-C [facility] [address] [place] [address] 02/03/2021 09:25:13 02/08/2021 10:44:34 COVID-19 512012898 U07.1 [id number] Osvaldo Gerber PA-C [facility] [address] [place] [address] 02/23/2021 09:47:44 02/23/2021 11:45:25 COVID-19 270247286 U07.1 Acute diarrhea 084116961 R19.7 [id number] Osvaldo Gerber PA-C [facility] [address] [place] [address] 03/10/2021 14:25:17 03/10/2021 15:18:10 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 [id number] [facility] [address] [place] [address] 04/16/2021 15:10:48 04/20/2021 11:11:45 Gastroesophageal reflux disease without esophagitis 710322303 K21.9 Synovial f luid: abnormal content 607932240 R89.9 Synovial c yst of left knee 4832484732 68109 M71.22 [id number] Osvaldo Gerber PA-C [facility] [address] [place] [address] 05/12/2021 16:42:00 05/14/2021 09:09:24 Acute deep venous thrombosis of popliteal vein of left leg 2480573380 50917 I82.432 Obesity 218578325 E66.09 Peripheral vascular disease 764202243 I73.9 [id number] Osvaldo Gerber PA-C [facility] [address] [place] [address] 05/25/2021 18:13:52 05/31/2021 10:01:32 Unintentional weight gain 1188592938 44221 R63.5 Deep venou s thrombosis of lower extremity 264464494 I82.874 [id number] Osavldo Gerber PA-C [facility] [address] [place] [address] 06/15/2021 18:20:00 06/16/2021 09:15:05 Pain of left calf 9241380662 [id number] M79.094 [id number] Osvaldo Gerber PA-C [facility] [address] [place] [address] 06/22/2021 10:12:30 06/22/2021 11:32:09 COVID-19 856807931 U07.1 [id number] Jil Hsu MA [facility] [address] [place] [address] 07/28/2021 18:06:22 07/28/2021 18:29:11 Active or passive immunization 645023262 Z23 [id number] Osvaldo Gerber PA-C [facility] [address] [place] [address] 08/12/2021 10:10:17 08/13/2021 07:52:45 Acute maxillary sinusitis 66662842 J01.01 Chronic mi graine without aura 0787800486 94117 G43.559 [id number] [facility] [address] [place] [address] 09/13/2021 14:52:13 09/13/2021 15:34:41 Lumbar radiculopathy 898287417 M54.16 [id number] MD Keli Casillas 14 OB [address] [facility] [place] [address] 11/02/2021 11:19:45 11/03/2021 15:41:22 Gynecologic examination 33981998 Z01.419 Screening for malignant neoplasm of breast 935932273 Z12.39 [id number] Osvaldo Gerber PA-C [facility] [address] [place] [address] 11/04/2021 10:23:13 11/04/2021 11:20:05 Pain of left calf 1806489738 898681 M79.893 [id number] Osvaldo Gerber PA-C [facility] [address] [place] [address] 12/24/2021 15:49:36 12/24/2021 16:36:43 Right lower quadrant pain 706880661 R10.31 [id number] Osvaldo Gerber PA-C [facility] [address] [place] [address] 01/06/2022 14:45:29 01/06/2022 15:42:33 Generalized anxiety disorder 98607600 F41.1 [facility] 701050136 E66 .3 [id number] Osvaldo Gerber PA-C [facility] [address] [place] [address] 01/18/2022 15:17:24 01/19/2022 12:11:16 Lower abdominal pain [id number] R10.33 [id number] MD Keli Casillas 14 OB 4 [facility] [place] [address] 05/06/2022 14:04:22 05/09/2022 07:20:17 Chronic pelvic pain of female 241613996 R10.2 [id number] [facility] [address] [place] [address] 08/19/2022 14:47:03 08/30/2022 08:47:54 Pain due to varicose veins of lower extremity 656357487 I83.812 Pain of le ft knee joint 4590179688 46509 M25.562 Synovial c yst of left knee 9029740993 47541 M71.22 Overweight 395473810 E66 .3 [id number] Osvaldo Gerber PA-C [facility] [address] [place] [address] 09/09/2022 11:35:21 09/12/2022 12:54:47 Otalgia of left ear 2054763523 H92.02 Essential hypertension 85528101 I10 Overweight 949320051 E66 .3 [id number] Brittanie Serrano MA [facility] [address] [place] [address] 02/17/2023 15:09:34 02/21/2023 11:01:06 Viral syndrome 503593889 B34.9 [id number] Osvaldo Gerber PA-C [facility] [address] [place] [address] 05/23/2023 15:05:25 05/24/2023 09:50:52 History of pain of multiple joints 208594765 Z87.39 Raynaud's disease 780196 006 I73.00 Overweight 484476764 E66 .3 [id number] Osvaldo Gerber PA-C [facility] [address] [place] [address] 07/04/2023 17:19:28 07/05/2023 10:27:01 Viral syndrome 880365126 B34.9 Sore throat 931865471 J0 2.9 Acute maxi llary sinusitis 77913004 J01.01 Body mass index 20-24 - normal 742726208 Z68.24 Acute sero us otitis media of left ear 2614588599 899831 H65.02 [id number] Brittanie Serrano MA [facility] [address] [place] [address] 07/28/2023 10:29:34 07/31/2023 15:28:17 Chronic sore throat 965312854 J31.2 [id number] Brittanie Serrano MA [facility] [address] [place] [address] 10/19/2023 15:20:28 10/25/2023 13:17:05 Active or passive immunization 139562405 Z23 [id number] Osvaldo Gerber PA-C [facility] [address] [place] [address] 11/27/2023 15:03:20 12/08/2023 12:59:38 Stiffness of right knee 1840242239 39394 M25.661 Active or passive immunization 867210071 Z23 Adult heal th examination 208627021 Z00.00 [id number] Osvaldo Gerber PA-C [facility] [address] [place] [address] 12/19/2023 11:12:10 12/22/2023 14:11:11 Swelling of bilateral lower limbs 604615992 M79.89 Overweight 998033904 E66 .3 [id number] Osvaldo Gerber PA-C [facility] [address] [place] [address] 02/13/2024 17:39:35 02/23/2024 13:03:45 Mitral valve regurgitation 87709759 I34.0 Mixed hyperlipidemia 267 955024 E78.2 Pulmonic v alve regurgitation 90817556 I37.1 Chronic fa tigue syndrome 33355490 G93.32 Essential hypertension 37073439 I10 [id number] Osvaldo Gerber PA-C [facility] [address] [place] [address] 02/23/2024 11:51:41 02/26/2024 08:26:31 Sore throat 928200930 J02.9 Increased frequency of urination 793717999 R35.0 Overweight 791341088 E66 .3 Acute maxi llary sinusitis 86274546 J01.01 [id number] Osvaldo Gerber PA-C [facility] [address] [place] [address] 03/12/2024 16:26:22 03/19/2024 14:49:02 Pleuritic pain 5188559 R07.81 Fatigue 67404841 R53.83 Body mass index 20-24 - normal 084310188 Z68.24 [id number] Osvaldo Gerber PA-C [facility] [address] [place] [address] 03/29/2024 11:45:34 04/04/2024 11:27:19 Pain in right lower limb 248158998 M79.604 D-dimer ab ove reference range 139132765 R79.1 Overweight 976617658 E66 .3 [id number] Osvaldo Gerber PA-C [facility] [address] [place] [address] 05/09/2024 15:28:04 05/13/2024 12:00:05 Cough 91665773 R05.9 Acute bron chitis with bronchospasm 45208073 J20.9 Overweight 489895566 E66 .3 Environmental allergy 42 0666236 T78.49XA [id number] Osvaldo Gerber PA-C [facility] [address] [place] [address] 07/02/2024 15:31:42 07/05/2024 10:14:53 Raynaud's phenomenon 550139375 I73.00 Multiple joint pain 3567 8005 M25.59 Overweight 673062725 E66 .3 Health Concerns Section Related Observation LastModified by Organization Detai ls LastModified Time None Recorded Concern Status LastModified by Organization Details LastModified Time None Recorded Advance Directives Directive None Recorded Payers Encounter Date Sequence Insurance Name Policy Number Policy Phan Covered Member ID Phan Member ID Guarantor Name 02/23/2024 1 [facility] [place] [employer] CHOICE POS II (POS) [id number] Tristan Slimick [id number] Tristan Slimick 03/12/2024 1 [facility] [place] CHOICE [place] (POS) [id number] Tristan Slimick [id number] Tristan Slimick 03/29/2024 1 [facility] [place] CHOICE POS II (POS) [id number] Tristan Slimick [id number] Tristan Slimick 05/09/2024 1 [facility] [place] CHOICE [place] (POS) [id number] Tristan Slimick [id number] Tristan Slimick 07/02/2024 1 [facility] [place] [employer] CHOICE POS [place] (POS) [id number] Tristan Slimick [id number] Tristan Slimick Notes Date Note Type Note Provider Name and Address Organization Details Recorded Time 02/23/2024 text/html headache sore throat sinus pain..cough sneeze..maybe low fever.. 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..describes plueritic pain...hurts when breathing and coughing...feels fatigued always...was positive again for covid earlier this month Osvaldo Gerber PA-C Attn: [address] [place], [address], [place] [facility] 03/12/2024 17:04:08 03/29/2024 text/html left leg pain an d elevated d dimer but no ultrasound was done...has echo sched on monday seen cardiology re hypotension Osvaldo Gerber PA-C Attn: [address] [place], [address], [place] [facility] 03/29/2024 12:18:15 05/09/2024 text/html 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..also she has URI symptoms since Monday ...cough sore throat malaise Osvaldo Gerber PA-C Attn: [address] [place], [address], [place] [facility] 05/09/2024 16:06:56 07/02/2024 text/html says she has worsening Raynauds that was diagnosed by someone years ago...complains of morning bilateral joint pain and stiffness...also she complains of foot pain on cold floors...fingertip s turn white in cold water or with cold stimulus...was told by someone that Raynauds was auto immune Osvaldo Gerber PA-C Attn: [address]ing[address] [facility], [place], [address], [facility] 07/02/2024 16:05:16 OBGyn Episode No OBEpisode recorded.
--- OUTSIDE RECORDS SUMMARY | 2024-08-07 13:07 | XMS_ITS | Encounter Summary ---
Author Organization [facility] Address [address] [facility] [place] [address] Phone Care Team Providers Care Ski Edge Painter Name Role Phone Griffin Gerber Primary Care Provider [phone] Indu Wright MD Unavailable [phone] Jj Steele DO Unavailable [phone] Reason for Visit * Reason Comments Medication Refill Encounter Details Date Type Department Care Team (Late st Contact Info) Description 04/05/2021 Refill [facility] - G[facility]enterology [facility] [address] [place] [address] Torrie Hassan, [facility] [address] [place] [address] Medication Refill Social History Tobacco Use Types [...] on file documented as of this encounter Miscellaneous Notes * Telephone Encounter - Jory Ratliff RN - 04/06/2021 10:33 AM CDT Medication refilled and signed per [facility] chronic medication standing order for pediatric and adult patients. * Telephone Encounter - Jory Ratliff RN - 04/06/2021 10:24 AM CDT Attempted to approve omeprazole. Nexium also listed on medication list. Called patient, she does not take Nexium. documented in this encounter Plan of Treatment Not on file documented as of this encounter Visit Diagnoses Diagnosis Epigastric pain Abdominal pain, epigastric documented in this encounter Care Teams Ski Edge Painter Relationship Specialty Start Date End Date Griffin Gerber, [facility] [address] [place] [address] PCP - General Physician Final Inspector Paper 05/18/15 Indu Wright MD [address] [place] [address] Consulting Physician General Surgery 05/18/15 Jj Steele DO [address] [place] [address] Gastroenterology 05/18/15 documented as of this encounter
--- OUTSIDE RECORDS SUMMARY | 2024-08-07 13:07 | XMS_ITS | Clinical Summary ---
Author Organization [facility] Address [address] [facility] [place] [address] Care Team Providers Care Manufacturing Engineering Manager Name Role Phone Unavailable Primary Care Provider Unavailabl e Source Comments [facility],non-owned Affiliates and Associated Physician Practices is amultiple site organization consisting of ambulatory clinics and hospital sitesin [place], [place], [place] and [place]. This disclosure is being madepursuant to the Care Everywhere program and may not contain all information available regarding this patient. Last updated 18.[facility] Allergies Active Allergy Reactions Criticality Noted Date [...] tablet by mouth once daily 08/30/2022 Active bwhonyoc-lctbbnroh-rp (Cortisporin) 3.5-84310-3 otic suspension Instill 4 (four) drops into [...] Orientation Not on file Plan of Treatment Health Maintenance Due Date Last Done Comments COLOGUARD (AGES 45-75) - COL ON CA SCREENING 1975 COLON MONITORING 1975 COLONOSCOPY - COLON CA SCREENING 1975 CT COLONOGRAPHY - COLON CA SCREENING 1975 Colorectal Cancer Screening 1975 FIT - COLON CA SCREENING 1975 FLEX SIG - COLON CA SCREENING 1975 LIPID TESTING 1975 PAP SMEAR 1975 HIV SCREENING 1990 HEPATITIS C SCREENING 07/13/1993 DTAP/TDAP/TD VACCINES (1 - Tdap) 1994 HEPATITIS B VACCINE (1 of 3 - 19+ 3-dose series) 1994 MAMMOGRAM 02/03/2024 02/02/2022 COVID-19 VACCINE (1 - 2023-2 5 season) 2024 INFLUENZA VACCINE (#1) 2024 DEPRESSION SCREENING 06/19/2024 ZOSTER VACCINE (1 of 2) 2025 HIB VACCINE Aged Out No longer eligi ble based on patient's age to complete this topic HPV VACCINE Aged Out No longer eligi ble based on patient's age to complete this topic MENINGOCOCCAL (Group B) VACCINE Aged Out No longer eligible based on patient's age to complete this topic MENINGOCOCCAL VACCINE Aged Out No alem willard eligible based on patient's age to complete this topic PNEUMOCOCCAL VACCINE Aged Out No long er eligible based on patient's age to complete this topic
--- OUTSIDE RECORDS SUMMARY | 2024-08-07 13:07 | XMS_ITS | Clinical Summary ---
Author Organization [facility] Address [address] [address] Care Team Providers Care Cinder Crusher Operator Name Role Phone Unavailable Primary Care Provider Unavailabl e Allergies Active Allergy Reactions Criticality Noted Date Comments Codeine Nausea,Vomiting 11/09/2020 Meperidine Nausea,Vomiting 11/09/2020 Medications * This document contains information received from the source organization and may not represent a complete record from that organization. Black Elderberry 50 MG/5ML syrup Take by mouth Active colesevelam (WELCHOL) 625 MG tablet Take 1,875 mg by mouth 3 times a day Take with meal(s) and a liquid. Active Multiple Vitamin (multivitamin) tablet Take 1 tablet by mouth 1 (one) time each day Active norethindrone-et hinyl estradiol-iron (ESTROSTEP FE) 1-20/1-30/1-35 MG-MCG tablet Take 1 tablet by mouth 1 (one) time each day Active omeprazole (PriLOSEC) [address] capsule Take 20 mg by mouth 1 (one) time each day Do not crush or chew. Active Probiotic Product (PROBIOTIC DAILY PO) Take 1 tablet by mouth 1 (one) time each day Active Active Problems No known active problems Family History Medical History Relation Comments Cancer Father Hypertension Father Kidney disease Father Cancer Maternal Grandfather Diverticulitis Mother Seizures Mother Cancer Paternal Grandmother Heart disease Paternal Grandmother Hypertension Paternal Grandmother Kidney disease Paternal Grandmother Relation Status Comments Father Maternal Grandfather Mother Alive Paternal Grandmother Alive Sister Alive Social History Tobacco Use Types Packs/Day Years Used Date Smoking Tobacco: Never Smokeless Tobacco: Never Alcohol Use Standard Drinks/Week Comments Never 0 (1 standard drink = 0.6 oz pur e alcohol) Comments Unknown Sex and Gender Information Value Date Recorded Sex Assigned at Not on file Legal Sex Female 3:49 PM EDT Gender Identity Not on file Sexual Orientation Not on file Last Filed Vital Signs Vital Sign Reading Time Taken Comments Blood Pressure 112/80 11/09/2020 11:08 AM CDT Pulse 72 11/09/2020 11:08 AM CDT Temperature 36.3 C (97.4 F) 11/09/2020 11:08 AM CDT Respiratory Rate - - Oxygen Saturation 99% 11/09/2020 11:08 AM CDT Inhaled Oxygen Concentration - - Weight 49.4 kg (109 lb) 11/09/2020 11:08 AM CDT Height 142.2 cm (4' 8 ) 11/09/2020 11:08 AM CDT Body Mass Index 24.44 11/09/2020 11:08 AM CDT Plan of Treatment Health Maintenance Due Date Last Done Comments Hepatitis B Vaccine (1 of 3 - 19+ 3-dose series) 1994 Influenza Vaccine (#1) 2024 Colorectal Cancer Screening: Annual FOBT 2024 Colorectal Cancer Screening: Colonoscopy 2024 Colorectal Cancer Screening: Sigmoidoscopy 2024 Pneumococcal Vaccine: Pediat rics (0 to 5 Years) and At-Risk Patients (6 to 64 Years) Aged Out No longer eligible b ased on patient's age to complete this topic Insurance [facility] ([id number])
--- OUTSIDE RECORDS SUMMARY | 2024-08-07 13:07 | XMS_ITS | Encounter Summary ---
Author Organization [facility] Address [address] [facility] [place] [address] Phone Care Team Providers Care Well Puller Head Name Role Phone Griffin Gerber Primary Care Provider [phone] Indu Wright MD Unavailable [phone] Jj Steele DO Unavailable [phone] Reason for Visit * Reason Comments Medication Refill Encounter Details Date Type Department Care Team (Late st Contact Info) Description 01/10/2021 Refill [facility] - General Surgery [facility] [address] [id number] Mack Dolan MD [address] [address] Medication Refill Social History Tobacco Use Types [...] file Not on file Not on file COVID-19 Exposure Response Date Recorded In the last month, have you been in contact with someone who was confirmed or suspected to have Coronavirus / COVID-19? No / Unsure 12/14/2020 4:15 PM CDT documented as of this encounter Plan of Treatment Not on file documented as of this encounter Visit Diagnoses Not on filedocumented in this encounter Care Teams Well Puller Head Relationship Specialty Start Date End Date Griffin Gerber, [facility] [address] [place] [address] PCP - General Physician Psychiatry Physician 05/18/15 Indu Wright MD [address] [place] [address] Consulting Physician General Surgery 05/18/15 Jj Steele DO [address] [place] [address] Gastroenterology 05/18/15 documented as of this encounter
--- OUTSIDE RECORDS SUMMARY | 2024-08-07 13:07 | XMS_ITS | Clinical Summary ---
Author Organization [facility] Address [address] [facility], [address] [address] Phone Care Team Providers Care Loss Claim Clerk Name Role Phone Griffin Gerber Primary Care Provider [phone] Indu Wright MD Unavailable [phone] Jj Steele DO Unavailable [phone] Allergies Active Allergy Reactions Criticality Noted Date Comments Codeine Nausea,Vomiting 05/18/2015 Meperidine Nausea,Vomiting 05/18/2015 Other Nausea,Vomiting 09/12/2018 Pt sts ALL PAIN MEDS cause nausea, could not name them Medications Probiotic Product (PROBIOTIC DAILY PO) Take 1 Tab by mouth daily. Active Multiple Vitamin (MULTI-VITAMIN PO) Take 1 Tab by mouth daily. Active Black Elderberry 50 MG/5ML Syrup daily. 06/19/2019 Active norethindrone-e thinyl estradiol (Nortrel , 28,) 1-35 MG-MCG Tablet daily. 06/19/1990 Activ e omeprazole (PriLOSEC) 20 MG CAPSULE DELAYED RELEASEIndicati ons:Epigastric pain TAKE 1 CAPSULE BY MOUTH TWICE DAILY 180 Capsule 1 04/06/2021 Active colesevelam (WELCHOL) 625 MG Tablet TAKE 1 TABLET BY MOUTH THREE TIMES DAILY 270 Tablet 04/07/2021 Active Active Problems Problem Noted Date Diagnosed Date Biliary dyskinesia 06/02/2015 Irritable bowel syndrome with diarrhea 5 Gastritis 06/02/2015 Family History Medical History Relation Name Comments Cancer Father lung Hypertension Father Skin Cancer Father Heart Disease Maternal Grandfather Other-comment Mother epilepsy Cancer Other paternal great uncle pancrea s Heart Disease Paternal Grandfather Pacemaker Paternal Grandmother Renal Failure Paternal Grandmother Cancer Paternal Great-Grandfather c olon, skin Relation Name Status Comments Father Maternal Grandfather Mother Alive Other paternal great uncle Alive Paternal Grandfather Paternal Grandmother Alive Paternal Great-Grandfather Social History Tobacco Use Types Packs/Day Years Used Date Smoking Tobacco: Never Smokeless Tobacco: Never Tobacco Cessation:Counseling Given: No Alcohol Use Standard Drinks/Week Comments Not Currently [...] file Not on file Not on file Last Filed Vital Signs Vital Sign Reading Time Taken Comments Blood Pressure 95/50 04/12/2024 10:30 AM CDT Pulse 59 04/12/2024 10:30 AM CDT Temperature 36.6 C (97.9 F) 04/12/2024 10:30 AM CDT Respiratory Rate 20 04/12/2024 10:30 AM CDT Oxygen Saturation 99% 04/12/2024 10:30 AM CDT Inhaled Oxygen Concentration - - Weight 49.9 kg (110 lb) 04/12/2024 8:53 AM CDT Height 142.2 cm (4' 8 ) 04/12/2024 8:53 AM CDT Body Mass Index 24.66 04/12/2024 8:53 AM CDT Plan of Treatment Health Maintenance Due Date Last Done Comments Hepatitis C Virus (HCV) Screening 1975 Hepatitis B Immunization (1 of 3 - 19+ 3-dose series) 1994 Pap Smear 1996 Cervical Cancer Screening (CCS) 2005 HPV/Cotest 2005 Colonoscopy 11/24/2023 11/23/2020, 01/2019, 09/24/2018, Additional history exists Colorectal Cancer Screening 11/24/2023 Influenza Immunization (#1) 2024 SARS-COV-2 Immunization ( season) 2024 04/15/2022, 07/30/2021, 07/02/2021 Immunochemical Fecal Occult Blood 2025 10/06/2015 Colonoscopy High Risk 11/23/2030 11/23/2020 , 09/24/2018, 09/24/2018, Additional history exists Respiratory Syncytial Virus (RSV) Immunization (Adult) (1 - 1-dose 75+ series) 2050 DTaP/Tdap/Td Immunization Discontinued 2021, 01/15/1991, 01/20/1981, Additional history exists TdaP Immunization Completed 07/28/2021 Discussion re Starting/Frequency of Mammograms Completed 04/09/2024, 03/29/2023, 02/02/2022, Additional history exists Meningococcal Immunization (ACWY) Aged Out No longer eligible based on patient's age to complete this topic Pneumococcal Immunization Combined Aged Out No longer eligible based on patient's age to complete this topic Rotavirus Immunization Aged Out No lo nger eligible based on patient's age to complete this topic Procedures Procedure Name Priority Date/Time Associated Diagnosis Comments CHENG SCREENING BILATERAL DIGITAL W CAD W DORITA Routine 03/29/2023 9:36 AM CDT Encounter for screening mammogram for malignant neoplasm of breast HM COLONOSCOPY Routine 10/15/2015 STOOL, OCCULT BLOOD, DIAGNOSTIC, VIA GUAIAC STAT 10/06/2015 1:16 PM CDT from Last 3 Months or Most Recently Relevant to Health Maintenance Results * CHENG SCREENING BILATERAL DIGITAL W CAD W DORITA (03/29/2023 9:36 AM CDT) Anatomical Region Laterality Modality breast Bilateral Mammography 03/29/2023 9:36 AM CDT Narrative 03/30/2023 12:06 PM CDT - CHENG SCREENING BILATERAL DIGITAL W CAD W DORITA BILATERAL DIGITAL SCREENING MAMMOGRAM 3D/2D WITH CAD WITH MEDIOLATERAL OBLIQUE CRANIOCAUDAL: 03/29/2023 The study was acquired using digital technology and interpreted from soft copy. Current study was also evaluated with ICAD version 7.2. 2D digital mammographic views, as well as 3D digital tomosynthesis were performed in the CC and MLO projections. CLINICAL: Routine screening. Patient has no complaints. No personal history of cancer. Maternal aunt had breast cancer. COMPARISONS: Comparison is made to exams dated: 02/02/2022, 12/14/2020, and 12/10/2019 [facility]. BREAST TISSUE:The tissue of both breasts is heterogeneously dense. This may lower the sensitivity of mammography. FINDINGS: No significant masses, calcifications, or other findings are seen in either breast. There has been no significant interval change. IMPRESSION: BI-RAD 1 NEGATIVE There is no mammographic evidence of malignancy. A 1 year screening mammogram is recommended. A letter will be sent to the patient with these results. The patient will be entered into a reminder system with a target due date of 1 year for her next screening exam. Electronically signed by: Yuki goldstein/chinedu:03/29/2023 18:51:18 Wholesale Account Executive(s): RT Stanley(R)(M), [facility] letter sent: Normal Exam Reading location: [facility] BI-RADS: 1 Negative Procedure Note Yuki Avery MD - 03/30/2023 - CHENG SCREENING BILATERAL DIGITAL W CAD W DORITA BILATERAL DIGITAL SCREENING MAMMOGRAM 3D/2D WITH CAD WITH MEDIOLATERAL OBLIQUE CRANIOCAUDAL: 03/29/2023 The study was acquired using digital technology and interpreted from soft copy. Current study was also evaluated with ICAD version 7.2. 2D digital mammographic views, as well as 3D digital tomosynthesis were performed in the CC and MLO projections. CLINICAL: Routine screening. Patient has no complaints. No personal history of cancer. Maternal aunt had breast cancer. COMPARISONS: Comparison is made to exams dated: 02/02/2022, 12/14/2020, and 12/10/2019 [facility]. BREAST TISSUE:The tissue of both breasts is heterogeneously dense. This may lower the sensitivity of mammography. FINDINGS: No significant masses, calcifications, or other findings are seen in either breast. There has been no significant interval change. IMPRESSION: BI-RAD 1 NEGATIVE There is no mammographic evidence of malignancy. A 1 year screening mammogram is recommended. A letter will be sent to the patient with these results. The patient will be entered into a reminder system with a target due date of 1 year for her next screening exam. Electronically signed by: Yuki goldstein/chinedu:03/29/2023 18:51:18 Wholesale Account Executive(s): Viviana Serrano RT(R)(M), [facility]: Normal Exam Reading location: [facility] BI-RADS: 1 Negative us Lucia Francisco MD IMG MAMMO ORDERABLES Final Result * HM COLONOSCOPY (10/15/2015) us Jj Steele DO PROCEDURE/MINOR SURGICAL ORDERA BLES Final Result * (ABNORMAL) Stool Occult Blood - Diagnostic (10/06/2015 1:16 PM CDT) OCCULT BLOOD DIAG, GI BLEED Positive(A ) Negative 10/06/2015 2:38 PM CDT [facility] Stool specimen (specimen) Non-Phlebotomy Collection / Unknown 10/06/2015 1:16 PM CDT 10/06/2015 2:27 PM CDT us Marky Ponce MD BODY FLUIDS & STOOLS ORDERABLES Final Result [facility] [address] [place] [address] from Last 3 Months or Most Recently Relevant to Health Maintenance Insurance [employer] [facility] Care Teams Loss Claim Clerk Relationship Specialty Start Date End Date Griffin Gerber PAC [address] [place] [address] PCP - General Physician Personnel Officer 05/18/15 Indu Wright MD [address] [place] [address] Consulting Physician General Surgery 05/18/15 Jj Steele DO [address] [place] [address] Gastroenterology 05/18/15
--- OUTSIDE RECORDS SUMMARY | 2024-08-07 13:07 | XMS_ITS | Clinical Summary ---
Author Organization [facility] Address [address] [place] [address] Care Team Providers Care Pouncer Machine Name Role Phone Griffin Gerber Primary Care Provider Social History Tobacco Use Types Packs/Day Years Used Date Smoking Tobacco: Never Assessed Comments Unknown Sex and Gender Information Value Date Recorded Sex Assigned at Not on file Legal Sex Female 8:03 PM CDT Gender Identity Not on file Sexual Orientation Not on file Plan of Treatment Health Maintenance Due Date Last Done Comments Cervical Cancer Screening Pa p Smear (Age 30 to 64) Every 3 Years 1975 Colorectal Cancer Screening Colonoscopy (10 Years) 1975 Annual Physical 1978 Hepatitis C 1993 DTaP, Tdap and Td Vaccines ( 1 - Tdap) 1994 Hepatitis B Vaccines (1 of 3 - 19+ 3-dose series) 1994 Cervical Cancer Screening Pa p with HPV Testing (Age 30 to 64) Every 5 Years 2005 Cervical Cancer Screening with HPV 2005 Mammogram Screening 2015 COVID-19 Vaccine (2023-2 5 season) 2024 Influenza Adult (#1) 2024 Meningococcal B Vaccine Aged Out No l onger eligible based on patient's age to complete this topic Meningococcal Vaccine Aged Out No alem willard eligible based on patient's age to complete this topic Pneumococcal Vaccine: Pediat rics (0 to 5 Years) and At-Risk Patients (6 to 64 Years) Aged Out No longer eligible b ased on patient's age to complete this topic RSV Immunizations Under 20 Months Aged Out No longer eligible based on patient's age to complete this topic Insurance [employer] Care Teams Pouncer Machine Relationship Specialty Start Date End Date Griffin Gerber PA [address] [place] [address] PCP - General PHYSICIAN METAL MINER BLASTING 04/07/21
--- NOTE | 2024-08-07 13:08 | ED_ITS ---
HPI - Abdominal Pain General Chief Complaint: Abdominal Pain Stated Complaint: abd pain Time Seen by Provider: 08/07/24 13:00 History of Present Illness HPI narrative: 49 YEARS OLD WHITE FEMALE CAME TO THE ED BY PRIVATE CAR COMPLAINING OF EPIGASTRIC PAIN AND THE DIARRHEA STARTED 4 DAYS AGO. ASSOCIATED WITH DIARRHEA. HISTORY OF CHOLECYSTECTOMY WITH CHRONIC DIARRHEA. PATIENT BELIEVED THAT THE FREQUENCY OF DIARRHEA IS A LITTLE BIT WORSE THAN HER NORMAL DIARRHEA. NORMALLY 3-4 TIME A DAY, OVER THE LAST FEW DAYS 5 TO 6 TIMES A DAY. SHE DENIES ANY FEVER, CHILLS, NAUSEA, VOMITING. HISTORY OF GERD. Related Data Home Medications ?Medication ?Instructions ?Recorded ?Confirmed ?Last Taken ?Type norethindrone 1 mg-ethinyl 1 tablet PO DAILY 01/05/21 10/26/23 Unknown History estradiol 35 mcg tablet (Nortrel) Allergies Allergy/AdvReac Type Severity Reaction Status Date / Time PAIN MEDS Allergy Mild Hives Uncoded 05/11/24 20:51 PAIN MEDS Allergy Rash Uncoded 05/11/24 20:51 Review of Systems 2 Review of Systems: All systems reviewed & are unremarkable except as noted in HPI and below PMFSH Past Medical History Medical History Hair loss GERD (gastroesophageal reflux disease) Abnormality of heart beat SOB (shortness of breath) Wears glasses Vision changes Chronic headaches History of adverse reaction to anesthesia Hx of deep venous thrombosis 2020 Mitral valve regurgitation Surgical History Surgical History History of cholecystectomy History of partial nephrectomy History of hernia repair Hx of arthroscopy of left knee 1999 Family History Family History Other Arthritis Asthma Diabetes mellitus Heart disease High cholesterol Hypertension Social History Social History Smoking status: Never smoker Substance use: never Living arrangements: with family Gender identity (if verbalized by the patient): Female Exam 2 Narrative: GENERAL APPEARANCE: WELL-DEVELOPED, WELL-NOURISHED SKIN: NORMAL COLOR HEAD: NORMOCEPHALIC, NONTRAUMATIC EYES: CLEAR CONJUNCTIVA ENT: OROPHARYNX NORMAL, EARS NORMAL, NOSE NORMAL NECK: SUPPLE, NONTENDER CHEST AND RESPIRATORY: AIRWAY PATENT, NO RESPIRATORY DISTRESS, NO ACCESSORY MUSCLE USE HEART: REGULAR RATE/RHYTHM ABDOMEN: SOFT, NONTENDER, NO ORGANOMEGALY, QUIET BOWEL SOUNDS VASCULAR: NORMAL PERIPHERAL PULSES, NORMAL CAPILLARY REFILL. MUSCULOSKELETAL: NORMAL RANGE OF MOTION, NONTENDER BACK NEUROLOGIC: ALERT AND ORIENTED ?3, PIPE ORGAN MECHANIC IS NORMAL TESTED, NO GROSS MOTOR DEFICIT Course Vital Signs Vital signs: Vital Signs Temperature 36.9 C 08/07/24 13:28 Pulse Rate 59 L 08/07/24 13:28 Respiratory Rate 16 08/07/24 13:28 Blood Pressure 118/61 08/07/24 13:28 Pulse Oximetry 100 08/07/24 13:28 Temperature 37.0 C 08/07/24 15:12 Pulse Rate 68 08/07/24 15:12 Respiratory Rate 19 08/07/24 15:12 Blood Pressure 125/64 08/07/24 15:12 Pulse Oximetry 99 08/07/24 15:12 MDM - Abdominal Pain MDM Narrative Medical decision making narrative: DIFFERENTIAL DIAGNOSIS INCLUDE VIRAL GASTROENTERITIS, ELECTROLYTE IMBALANCE, DEHYDRATION, GASTRITIS, ESOPHAGITIS, PANCREATITIS BLOOD WORKUP TODAY INCLUDES CBC, CMP, LIPASE SHOWED NO ACUTE ABNORMALITIES CT ABDOMEN AND PELVIS WITH IV CONTRAST SHOWED NO ACUTE ABNORMALITIES URINALYSIS SHOWED NO EVIDENCE OF INFECTION DIAGNOSIS: DIARRHEA, PATIENT WAS ADVISED TO MANAGE WITH FLUID INTAKE AND IF THERE IS NO IMPROVEMENT TO FOLLOW-UP WITH HER FRONT LINE LEADER. Differential Diagnosis Differential diagnosis: Likely other ( ABOVE) Medical Records Attestation: I reviewed the patient's medical records. Lab Data Attestation: I reviewed the patient's lab results. 08/07/24 15:16 08/07/24 15:16 Labs: Lab Results 08/07/24 08/07/24 08/07/24 Range/Units 13:09 15:16 15:27 WBC 6.6 (4.5-10.0) K/mm3 RBC 4.59 (4.2-5.4) M/mm3 Hgb 13.1 (12.0-15.0) g/dL Hct 39.8 (37.0-47.0) % MCV 86.7 (80-100) fl MCH 28.5 (26-34) pg MCHC 32.9 (32-36) g/dl RDW 13.6 (11.5-14.5) % Plt Count 252 (150-375) k/mm3 MPV 10.2 (7.4-10.4) fl Immature Gran % (Auto) 0.2 (0-0.5) % Neut % (Auto) 49.4 (45.5-73.1) % Lymph % (Auto) 38.8 (18.3-44.2) % Mcduffie % (Auto) 8.9 H (2.6-8.5) % Eos % (Auto) 1.8 (0-4.4) % Baso % (Auto) 0.9 (0.2-1.2) % Lymph # (Auto) 2.56 (0.9-3.2) K/mm3 Mcduffie # (Auto) 0.6 (0.1-0.6) K/mm3 Eos # (Auto) 0.1 (0-0.3) K/mm3 Baso # (Auto) 0.1 (0.0-0.1) K/mm3 Abs Immat Gran (auto) 0.01 (0.00-0.031) K/mm3 Absolute Neuts (auto) 3.3 (1.3-6.7) K/mm3 Absolute Nucleated RBC 0.000 (0.0-0.012) K/mm3 Nucleated RBC % 0.0 (0.0-0.2) % Sodium 144 (137-145) mmol/L Potassium 3.7 (3.4-5.0) mmol/L Chloride 109 H (98-107) mmol/L Carbon Dioxide 25 (22-30) mmol/L Anion Gap 10 (4-12) mmol/L BUN 8 (7-17) mg/dL Creatinine 0.63 L (0.7-1.0) mg/dL Estim Creat Clear Calc Not Reportable Estimated GFR > 60 (59 - ) Glucose 96 (65-110) mg/dL Calcium 9.1 (8.4-10.2) mg/dL Total Bilirubin 0.4 (0.2-1.3) mg/dL AST 30 (14-36) U/L ALT 38 H (6-35) U/L Alkaline Phosphatase 60 (38-126) U/L Total Protein 7.0 (6.3-8.2) g/dL Albumin 4.2 (3.5-5.1) g/dL Lipase 249 (23-300) U/L Urine Color Light zandra (Yellow) Urine Appearance Clear (Clear) Urine pH 6.0 (5.0-9.0) Ur Specific [place] 1.023 (1.001-1.035) Urine Protein Negative (Negative) mg/dL Urine Glucose (UA) Negative (Negative) mg/dL Urine Ketones Negative (Negative) mg/dL Ur Blood (Man) Negative (Negative) Urine Nitrate Negative (Negative) Urine Bilirubin Negative (Negative) Urine Urobilinogen 0.2 (<2.0) mg/dL Leukocyte Esterase Rfl Negative (Negative) NATI/UL POC Urine HCG, Qual Negative (Negative) Imaging Data Radiologist's impression: ITS Impressions Abdomen/Pelvis CT 08/07/24 16:18 IMPRESSION: 1. No etiology for the patient's symptoms. Critical Care Time Critical Care Time Critical Care Time: No Discharge Plan Discharge Clinical Impression: Diarrhea Patient Disposition: Home, Self-Care Condition: Stable Instructions: Acute Diarrhea (ED), Abdominal Pain (ED) Additional Instructions: RETURN IF SYMPTOMS ARE WORSENING , CALL YOUR FAMILY PHYSICIAN FOR APPOINTMENT, TAKE TYLENOL NEEDED FOR ACHES AND PAIN, CONTINUE HOME MEDICATIONS. Patient Language: Macedonian Prescriptions: No Action Nortrel (28) 1-35 mg-mcg tablet 1 tablet PO DAILY Follow-up/Referrals: Buzz,ANCA Umaña [Primary Care Provider] - Stand Alone Forms: Work/School Release IP
[2024-08-07 13:28] VITALS: BP 118/61; PULSE 59; RESP 16; TEMP 36.9; O2SAT 100
--- NOTE | 2024-08-07 14:45 | ED_ITS ---
HPI - Abdominal Pain General Chief Complaint: Abdominal Pain Stated Complaint: abd pain Time Seen by Provider: 08/07/24 13:00 Focused HPI: This is a 49 year old female that presents to the ER for epigastric/RUQ abdominal pain. Reports associated nausea and fevers. Reports she has had her gallbladder removed. Ongoing over the last 3 days. GENERAL: Well-appearing, well-nourished, and in no acute distress. HEAD: Normocephalic, atraumatic. CHEST: Clear to auscultation. ?No respiratory distress. HEART: Regular rate and rhythm.? NEURO: ?Alert and oriented x3. Patient screened in triage and initial orders placed.? ?Additional care and disposition to be based upon?diagnostic testing and treatment. Related Data Home Medications ?Medication ?Instructions ?Recorded ?Confirmed ?Last Taken ?Type norethindrone 1 mg-ethinyl 1 tablet PO DAILY 01/05/21 10/26/23 Unknown History estradiol 35 mcg tablet (Nortrel) Allergies Allergy/AdvReac Type Severity Reaction Status Date / Time PAIN MEDS Allergy Mild Hives Uncoded 05/11/24 20:51 PAIN MEDS Allergy Rash Uncoded 05/11/24 20:51 PMFSH Past Medical History Medical History Abnormality of heart beat Chronic headaches GERD (gastroesophageal reflux disease) Hair loss History of adverse reaction to anesthesia Hx of deep venous thrombosis 2020 Mitral valve regurgitation SOB (shortness of breath) Vision changes Wears glasses Surgical History Surgical History History of cholecystectomy History of hernia repair History of partial nephrectomy Hx of arthroscopy of left knee 1999 Family History Family History Other Arthritis Asthma Diabetes mellitus Heart disease High cholesterol Hypertension Social History Social History Smoking status: Never smoker Substance use: never Living arrangements: with family Gender identity (if verbalized by the patient): Female Course Vital Signs Vital signs: Vital Signs Temperature 98.4 F 08/07/24 13:28 Pulse Rate 59 L 08/07/24 13:28 Respiratory Rate 16 02/19/25 13:28 Blood Pressure 118/61 08/07/24 13:28 Pulse Oximetry 100 08/07/24 13:28 Temperature 98.4 F 08/07/24 13:28 Pulse Rate 59 L 08/07/24 13:28 Respiratory Rate 16 08/07/24 13:28 Blood Pressure 118/61 08/07/24 13:28 Pulse Oximetry 100 08/07/24 13:28 Discharge Plan Discharge Instructions: Antibiotic Form Patient Language: Djiboutian Prescriptions: No Action Nortrel () 1-35 mg-mcg tablet 1 tablet PO DAILY Follow-up/Referrals: Buzz,ANCA Umaña [Primary Care Provider] -
[2024-08-07 15:12] VITALS: BP 125/64; PULSE 68; RESP 19; TEMP 37; O2SAT 99
[2024-08-07] MEDS: SODIUM CHLORIDE 0.9% IV 1,000 ML 999 ML IV CONT (15:17)
[2024-08-07 15:34] LABS: Basophils Absolute Auto 0.1 K/mm3 (0.0-0.1); Basophils Percent Auto 0.9 % (0.2-1.2); Eosinophils Absolute Auto 0.1 K/mm3 (0-0.3); Eosinophils Percent Auto 1.8 % (0-4.4); Hematocrit 39.8 % (37.0-47.0); Hemoglobin 13.1 g/dL (12.0-15.0); Immature Granulocyte Absolute 0.01 K/mm3 (0.00-0.031); Immature Granulocyte Percent A 0.2 % (0-0.5); Lymphocytes Absolute Auto 2.56 K/mm3 (0.9-3.2); Lymphocytes Percent Auto 38.8 % (18.3-44.2); Mean Corpuscular HGB Conc 32.9 g/dl (32-36); Mean Corpuscular Hemoglobin 28.5 pg (26-34); Mean Corpuscular Volume 86.7 fl (80-100); Mean Platelet Volume 10.2 fl (7.4-10.4); Monocytes Absolute Auto 0.6 K/mm3 (0.1-0.6); Monocytes Percent Auto 8.9 % (2.6-8.5); Neutrophils Absolute Auto 3.3 K/mm3 (1.3-6.7); Neutrophils Percent Auto 49.4 % (45.5-73.1); Platelet Count Result 252 k/mm3 (150-375); Red Blood Count 4.59 M/mm3 (4.2-5.4); Red Cell Distribution Width 13.6 % (11.5-14.5); White Blood Count 6.6 K/mm3 (4.5-10.0)
--- OUTSIDE RECORDS SUMMARY | 2024-08-07 15:37 | XMS_ITS | Referral Summary ---
Author Organization [facility] Address [address] [place] [address] Care Team Providers Care Senior Clinician Name Role Phone Unavailable Primary Care Provider Unavailabl e Source Comments [facility],non-owned Affiliates and Associated Physician Practices is amultiple site organization consisting of ambulatory clinics and hospital sitesin [place], [place], [place] and [place]. This disclosure is being madepursuant to the Care Everywhere program and may not contain all information available regarding this patient. Last updated 18.[facility] Allergies Active Allergy Reactions Criticality Noted Date [...] tablet by mouth once daily 08/30/2022 Active jjgeokqd-pmqtjzpll-xg (Cortisporin) 3.5-71079-6 otic suspension Instill 4 (four) drops into [...]
--- OUTSIDE RECORDS SUMMARY | 2024-08-07 15:37 | XMS_ITS | Patient Health Summary ---
Author Organization [facility] Address [address] [place] [address] Care Team Providers Care Grill Attendant Name Role Phone Unavailable Primary Care Provider Unavailabl e Note from [facility],non-owned Affiliates and Associated Physician Practices is amultiple site organization consisting of ambulatory clinics and hospital sitesin [place], [place], [place] and [place]. This disclosure is being madepursuant to the Care Everywhere program and may not contain all information available regarding this patient. Last updated 18.[facility] Allergies * Codeine(Nausea and/or Vomiting,Vomiting) -Low Criticality [...] (one) tablet by mouth once daily * dterolmr-myhnalvoe-mm (Cortisporin) 3.5-32750-7 otic suspension(Started 09/09/2022) Instill 4 (four) drops [...] fibula. Report dictated by Mohan Zamarripa MD (residential leasing agent) I, Nick Guzman MD have personally reviewed and interpreted this examination/study. > Interpreting Provider: Nick Guzman MD on 09/14/2022 11:44 AM Narrative 09/14/2022 11:44 AM CDT PROCEDURE: XR TIBIA FIBULA LEFT 2VW, DATE/TIME OF EXAM: 09/14/2022 11:36 AM, LOCATION [facility] INDICATION: M25.562: Left knee pain, unspecified chronicity [...] 2VW, DATE/TIME OF EXAM: 1:36 AM, LOCATION [facility] INDICATION: M25.562: Left knee pain, unspecified chronicity ADDITIONAL CLINICAL INFORMATION: Ordering Provider Reason For Exam: eval NOF lesion Technologist Note: Additional: COMPARISON: None. FINDINGS: The tibia and fibula are intact without evidence of acute fracture. Bone density and texture are normal. No soft tissue swelling is present. IMPRESSION: No acute fracture in the tibia or fibula. Report dictated by Mohan Zamarripa MD (residential leasing agent) I, Nick Guzman MD have personally reviewed and interpreted this examination/study. > Interpreting Provider: Nick Guzman MD on 09/14/2022 11:44 AM Ramon Magdaleno MD DIAGNOSTIC IMAGING [facility]
--- OUTSIDE RECORDS SUMMARY | 2024-08-07 15:37 | XMS_ITS | Referral Summary ---
Author Organization [facility] [place] [address] Address [address] [place] [address] Care Team Providers Care Core Cutter Name Role Phone Griffin Gerber Primary Care Provider [phone] Bong Hall MD Unavailable [phone] Encounters Date Type Department Care Team Description 06/20/2024 Telephone [facility] [address] [place] [address] Lucia Francisco MD Patient issue/concern 06/04/2024 7:37 AM CANE FEEDER - 06/04/2024 11:59 PM CANE FEEDER Hospital Encounter [facility] [address] [place] [address] Abnormal mammogram Discharge Disposition: Discharge to home or self care from Last 3 Months Allergies Active Allergy Reactions Criticality Noted Date Comments Codeine Nausea Only,Vomiting Low 05/18/2015 Propoxyphene N-Acetaminophen Nausea only Low 2020 Hydrocodone-Acetaminophen Nausea only Low Meperidine Nausea Only,Vomiting Low 05/18/2015 Prochlorperazine Unknown Medications omeprazole (PriLOSEC) 20 mg capsule Take 1 capsule (20 mg total) by mouth 2 (two) times a day 10/08/2020 Active Bacillus coagulan/calcium carb (DIGESTIVE ADVANTAGE PROBIOTIC ORAL) Take by mouth Active colesevelam (WELCHOL) 625 mg tablet Active Ubrelvy 100 mg tablet Take 1 tablet (100 mg total) by mouth daily as needed Active metoprolol tartrate (LOPRESSOR) 25 mg immediate release tabletIndication s:MVP (mitral valve prolapse),PAC (premature atrial contraction),Pal pitations,PVC (premature ventricular contraction),Atr ial tachycardia (HCC) Take 1 tablet (25 mg total) by mouth 2 (two) times a day 60 tablet 11 03/04/2024 03/04/20 25 Active norethindrone (AYGESTIN) 5 mg tabletIndication s:Menorrhagia with regular cycle,Dysmenorrh ea Take 1 tablet (5 mg total) by mouth daily 90 tablet 3 06/20/2024 Active Active Problems Problem Noted Date Diagnosed Date History of DVT (deep vein thrombosis) 05/10/2024 Pain of left lower leg 05/10/2024 Chronic sore throat 10/04/2023 Assessment & Plan (10/04/2023 9:28 PM CDT): Total pillow CT Neck Avoid ear cleaning techniques Take omeprazole 30-60 minutes prior to any other medications, foods or fluids other than water. Laryngeal spasm 10/04/2023 Assessment & Plan (10/04/2023 10:34 AM CDT): Total pillow CT Neck Avoid ear cleaning techniques Take omeprazole 30-60 minutes prior to any other medications, foods or fluids other than water. Laryngopharyngeal reflux discussed and Handout provided Consider MRI based on CT findings If negative consider referral to Oral surgery for possible wisdom teeth evaluation History of COVID-19 03/15/2021 COVID-19 02/09/2021 Assessment & Plan (02/09/2021 3:21 PM CDT): Prescription sent for doxycyline due to potential for bacterial pneumonia. Patient instructed to follow up with PCP for any continued symptoms. Patient should follow up with PCP for any worsening symptoms or report to the ED with chest pain, SOB or other concerns. Renal cyst 11/02/2018 PAC (premature atrial contraction) 02/16/2017 PVC (premature ventricular contraction) 02/17/20 17 Atrial tachycardia 02/16/2017 MVP (mitral valve prolapse) 02/16/2017 Dizziness 01/06/2017 Palpitations 01/06/2017 Ulcerative colitis 01/06/2017 Irritable bowel syndrome with diarrhea 5 Gastritis 06/02/2015 Biliary dyskinesia 06/02/2015 Chest pain 11/02/2013 Overview (09/21/2016): CHEST PAIN NOS Microscopic hematuria 05/24/2012 Social History Tobacco Use Types Packs/Day Years Used Date Smoking Tobacco: Never Smokeless Tobacco: Never Tobacco Cessation:Counseling Given: Not Answered Alcohol Use Standard Drinks/Week Comments No 0 (1 standard drink = 0.6 oz pur e alcohol) Personal Safety Answer Date Recorded Have you ever been in or are you currently in a harmful physical or emotional relationship or is someone making you feel afraid or unsafe? Denies 03/27/2024 Comments No Sex and Gender Information Value Date Recorded Sex Assigned at Not on file Legal Sex Female 12:52 AM CANE FEEDER Gender Identity Female 02/02/2021 10:45 AM CDT Sexual Orientation Straight 02/02/2021 10 :45 AM CDT Occupation Industry Job Start Date Job End Date Not on file Not on file Not on file Not on file Last Filed Vital Signs Vital Sign Reading Time Taken Comments Blood Pressure 117/69 04/30/2024 10:51 AM CANE FEEDER Pulse 64 04/23/2024 12:34 PM CANE FEEDER Temperature 36.7 C (98 F) 04/30/2024 10:51 AM CANE FEEDER Respiratory Rate 15 03/27/2024 11:15 PM CDT Oxygen Saturation 99% 04/30/2024 10:51 AM CANE FEEDER Inhaled Oxygen Concentration - - Weight 56.2 kg (124 lb) 04/30/2024 10:51 AM CANE FEEDER Height 142.2 cm (4' 8 ) 04/30/2024 10:51 AM CANE FEEDER Body Mass Index 27.8 04/30/2024 10:51 AM CANE FEEDER Plan of Treatment Not on file Procedures Procedure Name Priority Date/Time Associated Diagnosis Comments DIAGNOSTIC MAMMOGRAM LEFT W DORITA Schedule Routine, Read Routine (OP Routine) 06/04/2024 8:09 AM CANE FEEDER Abnormal mammogram SCREENING MAMMOGRAM BILATERAL W DORITA Schedule Routine, Read Routine (OP Routine) 04/09/2024 1:03 PM CDT Screening mammogram, encounter for from Last 3 Months or Most Recently Relevant to Health Maintenance Results * Diagnostic Mammogram Left W [place] (06/04/2024 8:09 AM CANE FEEDER) Anatomical Region Laterality Modality Breast Left Mammography 06/04/2024 8:32 AM CANE FEEDER Impressions 06/04/2024 8:32 AM CANE FEEDER No persistent abnormality on additional views. OVERALL FINAL ASSESSMENT: BI-RADS Category 1: Negative. RECOMMENDATION: 1. Annual screening mammography is recommended. 2. Breast MRI is recommended for supplemental imaging surveillance given family history history of breast/ovarian cancer as well as extremely dense breast tissue. Electronically signed by: VERONICA WHEATLEY MD Narrative 06/04/2024 8:32 AM CANE FEEDER EXAMINATION: LEFT UNILATERAL DIGITAL DIAGNOSTIC MAMMOGRAM AND DIGITAL BREAST TOMOSYNTHESIS HISTORY: 48-year-old female with family history of grandmother with ovarian cancer callback from screening mammogram 04/09/2024 for an asymmetry in the middle outer left breast seen only on the cc view and a 2nd asymmetry seen in the anterior to middle lower left breast on the MLO view. COMPARISON: Multiple priors dating back to 2020 TECHNIQUE: Full field digital mammographic views of the LEFT breast were performed, including computer aided detection (CAD) and digital breast tomosynthesis (DBT). BREAST PARENCHYMAL COMPOSITION: The breasts are extremely dense, which lowers the sensitivity of mammography. MAMMOGRAM FINDINGS: Both asymmetries do not persist on additional views and likely represented overlapping dense fibroglandular tissue. Griffin [facility] MAMMO PROCEDURES Final Re sult * (ABNORMAL) Screening Mammogram Bilateral W [place] (04/09/2024 1:03 PM CDT) Anatomical Region Laterality Modality Breast Bilateral Mammography 04/10/2024 2:50 PM CDT Impressions 04/10/2024 2:50 PM CDT Asymmetries in the LEFT breast on BOTH views require additional evaluation. FINAL ASSESSMENT: BI-RADS Category 0: Incomplete - Need Additional Imaging Evaluation. RECOMMENDATION: Findings in the left breast require additional evaluation. Diagnostic mammogram and possible ultrasound images of the left breast are recommended at this time. Electronically signed by: Nubia Mejia M.D. Narrative 04/10/2024 2:50 PM CDT EXAMINATION: BILATERAL SCREENING MAMMOGRAM COMPARISON: Prior mammograms from 03/29/2023, 02/02/2022, and 12/14/2020. TECHNIQUE: Full-field 2D and digital breast tomosynthesis (DBT) images were obtained. CAD was utilized. BREAST PARENCHYMAL COMPOSITION: The breasts are heterogenously dense, which may obscure small masses. FINDINGS: There is an asymmetry in the middle outer LEFT breast on the craniocaudal view. An additional asymmetry which does not definitely correspond to the first asymmetry is seen in the anterior to middle lower LEFT breast on the MLO view. There is no suspicious mass, calcification, or distortion in the RIGHT breast. us Self Screening Mammogram IMG MAMMO PROCEDURES Fi nal Result from Last 3 Months or Most Recently Relevant to Health Maintenance Insurance [address] [facility] [employer] [facility] [place] [address] [place] [address] Care Teams Core Cutter Relationship Specialty Start Date End Date Griffin Gerber PA [address] [place] [address] PCP - General Family Practice 01/06/17 Bong Hall MD [address] [place] [address] Consulting Physician Rheumatology 07/11/24
--- OUTSIDE RECORDS SUMMARY | 2024-08-07 15:37 | XMS_ITS | Clinical Summary ---
Author Organization [facility] Address [address] [place] [address] Care Team Providers Care Habilitation Training Specialist Name Role Phone Unavailable Primary Care Provider Unavailabl e Source Comments [facility],non-owned Affiliates and Associated Physician Practices is amultiple site organization consisting of ambulatory clinics and hospital sitesin [place], [place], [place] and [place]. This disclosure is being madepursuant to the Care Everywhere program and may not contain all information available regarding this patient. Last updated 18.[facility] Allergies Active Allergy Reactions Criticality Noted Date [...] tablet by mouth once daily 08/30/2022 Active colgzdto-uyoerfyln-bj (Cortisporin) 3.5-57487-7 otic suspension Instill 4 (four) drops into [...]
--- OUTSIDE RECORDS SUMMARY | 2024-08-07 15:37 | XMS_ITS | Encounter Summary ---
Author Organization [facility] Address [address] [facility] [place] [address] Phone Care Team Providers Care Dental Coordinator Name Role Phone Griffin Gerber Primary Care Provider [phone] Indu Wright MD Unavailable [phone] Jj Steele DO Unavailable [phone] Reason for Visit * Reason Comments Medication Refill Encounter Details Date Type Department Care Team (Late st Contact Info) Description 04/05/2021 Refill [facility] [address] [place] [address] Torrie Hassan, [facility] [address] [place] [address] Medication Refill Social History Tobacco Use Types [...] epigastric documented in this encounter Care Teams Dental Coordinator Relationship Specialty Start Date End Date Griffin Gerber, [facility] [address] [place] [address] PCP - General Physician Gem Stone Cutter 05/18/15 Indu Wright MD [address] [place] [address] Consulting Physician General Surgery 05/18/15 Jj Steele DO [address] [place] [address] Gastroenterology 05/18/15 documented as of this encounter
--- OUTSIDE RECORDS SUMMARY | 2024-08-07 15:37 | XMS_ITS | Clinical Summary ---
Author Organization [facility] Address [address] [address] Care Team Providers Care Oncology Radiation Physician Name Role Phone Unavailable Primary Care Provider [...] patient's age to complete this topic Insurance [facility] ([id number]) [facility] Address: [facility] [id number] [place] [id number]
--- OUTSIDE RECORDS SUMMARY | 2024-08-07 15:37 | XMS_ITS | Clinical Summary ---
Author Organization [facility] Address [address] [facility], [address] [address] Phone Care Team Providers Care Support Dba Name Role Phone Griffin Gerber Primary Care Provider [phone] Indu Wright MD Unavailable [phone] Jj Steele DO Unavailable [phone] Allergies Active Allergy Reactions Criticality Noted [...] to exams dated: 02/02/2022, 12/14/2020, and 12/10/2019 [facility]. BREAST TISSUE:The tissue of both breasts [...] exam. Electronically signed by: Yuki goldstein/chinedu:03/29/2023 18:51:18 Microfilm Technician(s): RT Stanley(R)(M), [facility] letter sent: Normal Exam Reading location: [facility] BI-RADS: 1 Negative Procedure Note Yuki Avery [...] to exams dated: 02/02/2022, 12/14/2020, and 12/10/2019 [facility]. BREAST TISSUE:The tissue of both breasts [...] exam. Electronically signed by: Yuki goldstein/chinedu:03/29/2023 18:51:18 Microfilm Technician(s): Viviana Serrano RT(R)(M), [facility] sent: Normal Exam Reading location: [facility] BI-RADS: 1 Negative us Lucia Francisco MD IMG MAMMO ORDERABLES Final Result * HM COLONOSCOPY (10/15/2015) us Jj Steele DO PROCEDURE/MINOR SURGICAL ORDERA BLES Final Result * (ABNORMAL) Stool Occult Blood - Diagnostic (10/06/2015 1:16 PM CDT) OCCULT BLOOD DIAG, GI BLEED Positive(A ) Negative 10/06/2015 2:38 PM CDT [facility] Stool specimen (specimen) Non-Phlebotomy Collection / Unknown 10/06/2015 1:16 PM CDT 10/06/2015 2:27 PM CDT us Marky Ponce MD BODY FLUIDS & STOOLS ORDERABLES Final Result [facility] [address] [place] [address] from Last 3 Months or Most Recently Relevant to Health Maintenance Insurance [employer] [facility] Care Teams Support Dba Relationship Specialty Start Date End Date Griffin Gerber PAC [address] [place] [address] PCP - General Physician Document Preparation Specialist 05/18/15 Indu Wright MD [address] [place] [address] Consulting Physician General Surgery 05/18/15 Jj Steele DO [address] [place] [address] Gastroenterology 05/18/15
--- OUTSIDE RECORDS SUMMARY | 2024-08-07 15:37 | XMS_ITS | Encounter Summary ---
Author Organization [facility] Address [address] [facility] [place] [address] Phone Care Team Providers Care Swaging Machine Operator Name Role Phone Griffin Gerber Primary Care Provider [phone] Indu Wright MD Unavailable [phone] Jj Steele DO Unavailable [phone] Reason for Visit * Reason Comments Medication Refill Encounter Details Date Type Department Care Team (Late st Contact Info) Description 01/10/2021 Refill [facility] - General Surgery [facility] [address] [phone] Mack Dolan MD #[address] [address] Medication Refill Social History Tobacco Use Types [...] on filedocumented in this encounter Care Teams Swaging Machine Operator Relationship Specialty Start Date End Date Griffin Gerber, [facility] [address] [place] [address] PCP - General Physician Steam Service Inspector 05/18/15 Indu Wright MD [address] [place] [address] Consulting Physician General Surgery 05/18/15 Jj Steele DO [address] [place] [address] Gastroenterology 05/18/15 documented as of this encounter
--- OUTSIDE RECORDS SUMMARY | 2024-08-07 15:37 | XMS_ITS | Encounter Summary ---
Author Organization [facility] Address [address] [facility] [place] [address] Phone Care Team Providers Care Automotive Parts Person Name Role Phone Griffin Gerber Primary Care Provider [phone] Indu Wright MD Unavailable [phone] Jj Steele DO Unavailable [phone] Reason for Visit * Reason Comments Medication Refill Encounter Details Date Type Department Care Team (Late st Contact Info) Description 04/07/2021 Refill [facility] - General Surgery [facility] #[address] [phone] Mack Dolan MD #[address] [address] Medication Refill Social History Tobacco Use Types [...] on filedocumented in this encounter Care Teams Automotive Parts Person Relationship Specialty Start Date End Date Griffin Gerber PAC [address] [place] [address] PCP - General Physician Senior Financial Consultant 05/18/15 Indu Wright MD [address] [place] [address] Consulting Physician General Surgery 05/18/15 Jj Steele DO [address] [place] [address] Gastroenterology 05/18/15 documented as of this encounter
--- OUTSIDE RECORDS SUMMARY | 2024-08-07 15:37 | XMS_ITS | Clinical Summary ---
Author Organization [facility] Address [address] [place] [address] Care Team Providers Care Vest Baster Name Role Phone Griffin Gerber Primary Care Provider [phone] Social History Tobacco Use Types Packs/Day Years [...] complete this topic Insurance [employer] Care Teams Vest Baster Relationship Specialty Start Date End Date Griffin Gerber PA [address] [place] [address] PCP - General PHYSICIAN MUNICIPAL COURT JUDGE 04/07/21
--- OUTSIDE RECORDS SUMMARY | 2024-08-07 15:38 | XMS_ITS | Clinical Summary ---
Author Organization [facility] [address] Address [address] [place] [address] Care Team Providers Care Plumbing Hardware Assembler Name Role Phone Griffin Gerber Primary Care Provider [phone] Bong Hall MD Unavailable [phone] Allergies Active Allergy Reactions Criticality Noted Date [...] (09/21/2016): CHEST PAIN NOS Microscopic hematuria 05/24/2012 Encounters Date Type Department Care Team Description 06/20/2024 Telephone [facility] [address] [place] [phone] Lucia Francisco MD Patient issue/concern 06/04/2024 7:37 AM SCENE PAINTER - 06/04/2024 11:59 PM SCENE PAINTER Hospital Encounter [facility] [address] [place] [address] Abnormal mammogram Discharge Disposition: Discharge to home or self care from Last 3 Months Surgical History Surgery Date Site/Laterality Comments KNEE ARTHROSCOPY Right Knee Surgery, Arthroscopic INGUINAL HERNIA REPAIR Right Inguinal Hernia Repair LAPAROSCOPIC CHOLECYSTECTOMY 06/19/2018 - 06/18/2019 PARTIAL NEPHRECTOMY Right Duplicated collection system KNEE ARTHROSCOPY W/ LATERAL RELEASE 1999 LAPAROSCOPIC TUBAL LIGATION 06/19/2003 - 06/18/2004 Bilateral CHOLECYSTECTOMY 2018 Medical History Medical History Date Comments Heart murmur Syncope Dizziness 01/06/2017 Palpitations 01/06/2017 Ulcerative colitis (HCC) 01/06/2017 Raynaud's disease Hematuria Arrhythmia Weight loss Covid GERD (gastroesophageal reflu x disease) 2007 Migraines 1998 Mitral valve prolapse DVT (deep venous thrombosis) (CMS/HCC) (HCC) 2020 Anticoagulation x 6 months. Factor V testing normal. Family History Medical History Relation Name Comments Cancer Father Keo Lucero Hyperlipidemia Father Keo Lucero Hypertension Father Keo Lucero Lung cancer Father Keo Lucero Alzheimer's disease Maternal Grandmother Delroy holly Nic. (L. EYE) COPD Maternal Grandmother Milena Gonzalez rney. (L. EYE) Hearing loss Maternal Grandmother Milena Gonzalez rney. (L. EYE) Kidney disease Maternal Grandmother Milena Gonzalez rney. (L. EYE) Memory loss Maternal Grandmother Milena Gonzalez rney. (L. EYE) Stroke Maternal Grandmother Milena Gonzalez rney. (L. EYE) Vision loss Maternal Grandmother Milena Gonzalez rney. (L. EYE) Ovarian cancer Maternal Great-Grandmother age unknown Prostate cancer Maternal Great-Grandparent age unknown Allergy (severe) Mother kathia nic Arthritis Mother kathia nic Asthma Mother kathia nic Epilepsy Mother kathia nic Migraines Mother kathia lucero Blood Clot Paternal Grandfather Eleazar Lucero DVT, sp read to PE Heart disease Paternal Grandfather Eleazar Lucero Heart disease Paternal Grandmother Milena Lucero Skin cancer Paternal Grandmother Milena Lucero Breast cancer Neg Hx Pancreatic cancer Neg Hx Relation Name Status Comments Father Keo Lucero Maternal Grandmother Milena Lucero. (L. EYE) Maternal Great-Grandmother Maternal Great-Grandparent Alive Mother kathia lucero Paternal Grandfather Eleazar BARTON Paternal Grandmother Milena MORE MAKER Sister Alive Social History Tobacco Use Types [...] on file Legal Sex Female 12:52 AM SCENE PAINTER Gender Identity Female 02/02/2021 10:45 AM CDT Sexual Orientation Straight 02/02/2021 10 :45 AM CDT Occupation Industry Job Start Date Job End Date Not on file Not on file Not on file Not on file Obstetrics History Para Term AB IAB SAB Ectopic Multiple Livin g Live Births 4 2 0 2 2 2 2 2 Date Outcome GA Total Labor Labor/2nd/3rd Weight Sex Type Anes PTL Maria C A1 A5 Name Clin SAB SAB 1998 36w 0d 2.92 kg (6 lb 7 oz) M Vag-S pont Livin g Ramón 2002 36w 0d 2.75 kg (6 lb 1 oz) M Vag-S pont Livin g Vik Complications:Hyaline membra ne disease Last Filed Vital Signs Vital Sign Reading Time Taken Comments Blood Pressure 117/69 04/30/2024 10:51 AM SCENE PAINTER Pulse 64 04/23/2024 12:34 PM SCENE PAINTER Temperature 36.7 C (98 F) 04/30/2024 10:51 AM SCENE PAINTER Respiratory Rate 15 03/27/2024 11:15 PM CDT Oxygen Saturation 99% 04/30/2024 10:51 AM SCENE PAINTER Inhaled Oxygen Concentration - - Weight 56.2 kg (124 lb) 04/30/2024 10:51 AM SCENE PAINTER Height 142.2 cm (4' 8 ) 04/30/2024 10:51 AM SCENE PAINTER Body Mass Index 27.8 04/30/2024 10:51 AM SCENE PAINTER Plan of Treatment Health Maintenance Due Date Last Done Comments Cervical Cancer Screening 1975 Colon Cancer Screening-Colonoscopy 1975 Depression Screening 1975 Hepatitis C Screening 1975 Hepatitis B Screening 1993 Covid-19 Vaccine ( season) 2024 07/30/2021, 07/02/2021 Influenza Vaccine (#1) 2024 Regular Well Visit/Exam 18-64 02/11/2025 02/12/2024 Breast Cancer Screening-Mammogram 04/09/2025 04/09/2024, 03/29/2023, 03/29/2023, Additional history exists DTaP/Tdap/Td Vaccine (8 - Td or Tdap) 07/28/2031 07/28/2021, 01/15/1991, 01/20/1981, Additional history exists Pneumococcal vaccine <65 Aged Out No longer eligible based on patient's age to complete this topic Procedures Procedure Name Priority Date/Time Associated Diagnosis Comments DIAGNOSTIC MAMMOGRAM LEFT W ISSA Schedule Routine, Read Routine (OP Routine) 06/04/2024 8:09 AM SCENE PAINTER Abnormal mammogram SCREENING MAMMOGRAM BILATERAL W ISSA Schedule Routine, Read Routine (OP Routine) 04/09/2024 1:03 PM CDT Screening mammogram, encounter for from Last 3 Months or Most Recently Relevant to Health Maintenance Results * Diagnostic Mammogram Left W Issa (06/04/2024 8:09 AM SCENE PAINTER) Anatomical Region Laterality Modality Breast Left Mammography 06/04/2024 8:32 AM SCENE PAINTER Impressions 06/04/2024 8:32 AM SCENE PAINTER No persistent abnormality on additional views. OVERALL FINAL ASSESSMENT: BI-RADS Category 1: Negative. RECOMMENDATION: 1. Annual screening mammography is recommended. 2. Breast MRI is recommended for supplemental imaging surveillance given family history history of breast/ovarian cancer as well as extremely dense breast tissue. Electronically signed by: VERONICA WHEATLEY MD Narrative 06/04/2024 8:32 AM SCENE PAINTER EXAMINATION: LEFT UNILATERAL DIGITAL DIAGNOSTIC MAMMOGRAM AND [...] represented overlapping dense fibroglandular tissue. Griffin [facility] MAMMO PROCEDURES Final Re sult * (ABNORMAL) Screening Mammogram Bilateral W Issa (04/09/2024 1:03 PM CDT) Anatomical Region Laterality [...] calcification, or distortion in the RIGHT breast. Self Screening Mammogram G MAMMO PROCEDURES Fi nal Result from Last 3 Months or Most Recently Relevant to Health Maintenance Insurance [id number] [employer] [facility] [place] [id number] [place] [id number] Care Teams Plumbing Hardware Assembler Relationship Specialty Start Date End Date Griffin Gerber PA [address] [place] [address] PCP - General Family Practice 01/06/17 Bong Hall MD [address] [place] [address] Consulting Physician Rheumatology 07/11/24
[2024-08-07 15:39] LABS: Alanine Aminotransferase 38 U/L (6-35); Albumin Level 4.2 g/dL (3.5-5.1); Alkaline Phosphatase 60 U/L (38-126); Anion Gap 10 mmol/L (4-12); Aspartate Amino Transferase 30 U/L (14-36); Bilirubin,Total 0.4 mg/dL (0.2-1.3); Blood Urea Nitrogen 8 mg/dL (7-17); Calcium 9.1 mg/dL (8.4-10.2); Carbon Dioxide 25 mmol/L (22-30); Chloride 109 mmol/L (98-107); Estimated Glomerular Filt Rate > 60; Glucose 96 mg/dL (65-110); Lipase 249 U/L (23-300); Potassium 3.7 mmol/L (3.4-5.0); Sodium 144 mmol/L (137-145)
[2024-08-07 15:44] LABS: BEDSIDEPREGUCG Negative (Negative)
[2024-08-07 15:45] LABS: Add Urine Microscopic? YES; Appearance Urine Clear (Clear); Bilirubin Urine Negative (Negative); Blood Urine Negative (Negative); Glucose Urine UA Negative (Negative); Ketones Urine Negative (Negative); Leukocyte Esterase Ur Negative LEU/UL (Negative); Nitrate Urine Negative (Negative); Protein Urine Negative (Negative); Specific Grav Ur 1.023 (1.001-1.035); Urobilinogen Urine 0.2 mg/dL (<2.0)
[2024-08-07 15:46] LABS: Color Urine Light Amber (Yellow)
== END 2024-08-07 16:45 | disposition home or self-care (01) ==
PROVIDERS: Emergency Provider Emergency Medicine; PCP Physician Assistant
DX: R19.7 Diarrhea, unspecified (principal); I34.0 Nonrheumatic mitral (valve) insufficiency; K21.9 Gastro-esophageal reflux disease without esophagitis; Z86.718 Personal history of other venous thrombosis and embolism; Z90.49 Acquired absence of other specified parts of digestive tract; Z90.5 Acquired absence of kidney; Z79.3 Long term (current) use of hormonal contraceptives
CPT/HCPCS: 36415; 74177; 80053; 81001; 81025; 83690; 85025; 96360; 99284; J7030; Q9967

== ENCOUNTER 2024-12-25 13:08 | Emergency (ER) | payer OTHER, SELFPAY ==
[2024-12-25] VITALS (8 sets, daily range): BP systolic 103–124; BP diastolic 48–68; PULSE 42–68; RESP 14–188; TEMP 36.3–36.7; O2SAT 99–100
--- NOTE | ~2024-12-25 | XR_ITS ---
CHEST RADIOGRAPH, PA AND LATERAL CLINICAL HISTORY: cp sob . COMPARISON: 05/07 [address] examination of the chest dated 05/11/2024 as well as t he upper slices of a CT examination of the abdomen and pelvis dated 08/07/2024 TECHNIQUE: PA and lateral views of the chest. FINDINGS The cardiomediastinal silhouette is unremarkable. The lungs are clear. IMPRESSION: No focal infiltrate or effusion. Reviewed, dictated and finalized at location A.
--- NOTE | 2024-12-25 13:10 | ECG_ITS ---
Test Date: 2024-12-25 13:16:40 Measurements Intervals [place] Rate: 54 P: 40 WI: 147 QRS: 3 QRSD: 83 T: 48 QT: 384 QTc: 365 Interpretive Statements SINUS BRADYCARDIA POSSIBLE LEFT ATRIAL ENLARGEMENT [-0.1mV P WAVE IN V1/V2] POSSIBLE RIGHT VENTRICULAR CONDUCTION DELAY [RSR (QR) IN V1/V2] POSSIBLE LEFT VENTRICULAR HYPERTROPHY [VOLTAGE CRITERIA PLUS LAE OR QRS WIDENING] Compared to ECG 05/11/2024 21:16:31 NO SIGNIFICANT CHANGE Electronically Signed On 12-26-2024 11:35:17 CDT by Papo Gillis M.D.
--- OUTSIDE RECORDS SUMMARY | 2024-12-25 13:14 | XMS_ITS | Clinical Summary ---
Author Organization [facility] Address [address] [place] [address] Care Team Providers Care Physical Therapy Aid Name Role Phone Griffin Gerber Primary Care Provider [phone] Social History Tobacco Use Types Packs/Day Years [...] 2015 COVID-19 Vaccine (2023-2 5 season) 2024 Meningococcal B Vaccine Aged Out No l onger eligible based on patient's age to complete this topic Meningococcal Vaccine Aged Out No alem willard eligible based on patient's age to complete this topic Pneumococcal Vaccine: Pediat rics (0 to 5 Years) and At-Risk Patients (6 to 49 Years) Aged Out No longer eligible b ased on patient's age to complete this topic RSV Immunizations Under 20 Months Aged Out No longer eligible based on patient's age to complete this topic Insurance [employer] Care Teams Physical Therapy Aid Relationship Specialty Start Date End Date Griffin Gerber PA PCP - General PHYSICIAN AGRICULTURE MANAGER 04/07/21
--- OUTSIDE RECORDS SUMMARY | 2024-12-25 13:14 | XMS_ITS | Encounter Summary ---
Author Organization [facility] Address [address] [facility] [place] [address] Phone Care Team Providers Care Trash Man Name Role Phone Griffin Gerber Primary Care Provider [phone] Indu Wright MD Unavailable [phone] Jj Steele DO Unavailable [phone] Reason for Visit * Reason Comments Medication Refill Encounter Details Date Type Department Care Team (Late st Contact Info) Description 04/07/2021 Refill [facility] - General Surgery [facility] #[address] [phone] Mack Dolan MD #[address] [address] Medication Refill Social History Tobacco Use Types [...] on filedocumented in this encounter Care Teams Trash Man Relationship Specialty Start Date End Date Griffin Gerber PAC [address] [place] [address] PCP - General Physician High School Industrial Arts Teacher 05/18/15 Indu Wright MD [address] [place] [address] Consulting Physician General Surgery 05/18/15 Jj Steele DO [address] [place] [address] Gastroenterology 05/18/15 documented as of this encounter
--- OUTSIDE RECORDS SUMMARY | 2024-12-25 13:14 | XMS_ITS | Encounter Summary ---
Author Organization [facility] Address [address] [facility] [place] [address] Phone Care Team Providers Care Briquetter Operator Name Role Phone Griffin Gerber Primary Care Provider [phone] Indu Wright MD Unavailable [phone] Jj Steele DO Unavailable [phone] Reason for Visit * Reason Comments Medication Refill Encounter Details Date Type Department Care Team (Late st Contact Info) Description 04/05/2021 Refill [facility] - Gastroenterology - [place] [address] [place] [address] Torrie Hassan Jazmin, PAC [address] [place] [address] Medication Refill Social History Tobacco Use Types [...] epigastric documented in this encounter Care Teams Briquetter Operator Relationship Specialty Start Date End Date Griffin Gerber PAC [address] [place] [address] PCP - General Physician Journeyman Level Acoustic Analyst 05/18/15 Indu Wright MD [address] [place] [address] Consulting Physician General Surgery 05/18/15 Jj Steele DO [address] [place] [address] Gastroenterology 05/18/15 documented as of this encounter
--- OUTSIDE RECORDS SUMMARY | 2024-12-25 13:14 | XMS_ITS | Data Portability ---
Author Organization [facility] Address [address] [place] [address] Care Team Providers Care Administrative Assistant Name Role Phone SHADIDUANENICKY Master Cook OSVALDO GERBER Primary Care Provider [phone] Assessment No assessment recorded. Plan of Treatment Reminders Order Date Submit Date Provider Last Modified By Organization Details Last Modified Time Details Appointments ANY 15 2024 03:30P Kecia Gerber PA-C Not available Not available Not available Lab urina lysis , dipst ick 2024 025 daisha In-Office Order, Internal Use Only DO Not Attach Compendium DO Not Attach Compendium, Do Not Delete/merge, [id number] 10/29/2024 18:22:39 JACOB + rf (anti nucle ar antib odies + rheum atoid facto r), quant itati ve, serum 2024 025 [facility], [address] [facility] [address], [place], [address], 07/03/2024 15:13:53 ESR (eryt hrocy te sedim entat ion rate) , blood 2024 025 [facility], [address] [facility] [address], [place], [address], 07/03/2024 15:13:52 unlis darryl lab - regio nal panel 8 2023 024 [facility], [address] [place] [address] 2, [place], [address], 05/16/2024 17:07:59 influ warner virus A + B + SARS- CoV-2 (COVI D19) Ag panel , rapid IA, upper respi rator y speci men 2023 024 daisha In-Office Order, Internal Use Only DO Not Attach Compendium DO Not Attach Compendium, Do Not Delete/merge, [id number] 05/09/2024 16:15:43 Referral gastr jerrod vera ist refer ral [address] [facility], [address] [facility] , [address], [place], [address], 09/18/2024 11:42:56 Procedures None recor ded. Surgeries None recor ded. Imaging XR, jamia ble 2024 [facility], [address] [facility] , [place], [address], 08/29/2024 08:38:00 Medication Orders Ubrel vy 100 mg table t 2024 025 [facility] #[id number], [address], [place], [place], [id number], 09/03/2024 18:32:51 omepr azole 20 mg capsu le,de layed relea se 2024 025 [facility] #[id number], [address], [place], [place], [id number], 09/03/2024 18:32:53 azith romyc in 500 mg table t 2023 025 [facility] #[id number], [address], [place], [place], [id number], 07/02/2024 15:41:49 Medro l (Casey) 4 mg table ts in a dose pack 2023 025 [facility] #[id number], [address], [place], [place], [id number], 07/02/2024 15:41:38 Patient TargetsNo targets recorded. Patient Instructions Encounter Date Encounter Id Patient Instructions Last Modified By Organization Details Last Modified Time 05/09/2024 [id number] A healthy lifestyle: care instructions jnanney Not available 05/09/2024 16:02:39 cough: care instructions jnanney Not available 05/09/2024 16:15:43 07/02/2024 [id number] A healthy lifestyle: care instructions jnanney Not available 07/02/2024 16:02:28 08/23/2024 [id number] A healthy lifestyle: care instructions jnanney Not available 08/23/2024 11:22:23 09/03/2024 [id number] A healthy lifestyle: care instructions jnanney Not available 09/03/2024 18:29:32 10/29/2024 [id number] flank pain: care instructions jnanney Not available 10/29/2024 18:22:39 Reason for Referral Emergency Medical Service Manager Referral for Hematochezia Referring Physician: Osvaldo Gerber, Family Medicine, Encounter Date: 08/23/2024 Results Created Date Observation Date Name Description Value Unit Range Abnormal Flag Note LastModifiedBy Organization Detail LastModifiedTime 05/09/20 24 05/09/2024 REGIO NAL PANEL 8 [...] >100. 00 Very High Not Available [facility] ([facility]) [address], [place], [address], 05/16/2024 17:07:59 05/09/20 24 05/15/2024 REGIO NAL PANEL 8 V545-MbV waqar, white <0.10 Not Available [facility] ([facility]) [address], [place], [address], 05/16/2024 17:07:59 05/09/20 24 05/15/2024 REGIO NAL PANEL 8 Z694-HhO cottonwood <0.10 Not Available [facility] ([facility]) [address], [place], [address], 05/16/2024 17:07:59 05/09/2005/15/2024 REGIO NAL PANEL 8 U591-AhA cypress, slovak <0.10 Not Available [facility] ([facility]) [address] [facility], [place], [address], 05/16/2024 17:07:59 05/09/20 24 05/15/2024 REGIO NAL PANEL 8 Y663-NqF elm, grenadian <0.10 Not Available [facility] ([facility]) [address] [facility], [place], [address], 05/16/2024 17:07:59 05/09/20 24 05/15/2024 REGIO NAL PANEL 8 W692-MlV oak, white <0.10 Not Available [facility] ([facility]) [address] [facility], [place], [address], 05/16/2024 17:07:59 05/09/20 24 05/15/2024 REGIO NAL PANEL 8 F626-VsF olive tree <0.10 Not Available [facility] ([facility]) [address] [facility], [place], [address], 05/16/2024 17:07:59 05/09/20 24 05/15/2024 REGIO NAL PANEL 8 q800-UjN bermuda grass <0.10 Not Available [facility] ([facility]) [address] [facility], [place], [address], 05/16/2024 17:07:59 05/09/20 24 05/15/2024 REGIO NAL PANEL 8 p076-BsP barb grass <0.10 Not Available [facility] ([facility]) [address] [facility], [place], [address], 05/16/2024 17:07:59 05/09/2005/15/2024 REGIO NAL PANEL 8 u596-YcO bluegrass, kent[place] <0.10 Not Available [facility] ([facility]) [address] [facility], [place], [address], 05/16/2024 17:07:59 05/09/2005/15/2024 REGIO NAL PANEL 8 P314-DuI cocklebur 2.38 kU/L classi ii abnormal Not Available [facility] ([facility]) [address] [place], [address], 05/16/2024 17:07:59 05/09/2005/15/2024 REGIO NAL PANEL 8 G654-CpA kochia <0.10 kU/L class0 Not Available [facility] ([facility]) [address] [place], [address], 05/16/2024 17:07:59 05/09/20 24 05/15/2024 REGIO NAL PANEL 8 I847-EdU rough marshelder 0.83 kU/L classi i abnormal Not Available [facility] ([facility]) [address] [place], [address], 05/16/2024 17:07:59 05/09/20 24 05/15/2024 REGIO NAL PANEL 8 F323-DpW pigweed, common <0.10 kU/L class0 Not Available [facility] ([facility]) [address] [place], [address], 05/16/2024 17:07:59 05/09/20 24 05/15/2024 REGIO NAL PANEL 8 T884-PzB thistle, zimbabwean <0.10 kU/L class0 Not Available [facility] ([facility]) [address] [place], [address], 05/16/2024 17:07:59 05/09/20 24 05/15/2024 REGIO NAL PANEL 8 U173-MeA wormwood 3.46 kU/L classi ii abnormal Not Available [facility] ([facility]) [address] [place], [address], 05/16/2024 17:07:59 05/09/20 24 05/15/2024 REGIO NAL PANEL 8 R518-WsI sheep sorrel <0.10 kU/L class0 Not Available [facility] ([facility]) [address] [place], [address], 05/16/2024 17:07:59 05/09/20 24 05/16/2024 REGIO NAL PANEL 8 R523-UkB mesquite <0.10 Not Available [facility] ([facility]) [address] [facility], [place], [address], 05/16/2024 17:07:59 05/09/20 24 05/16/2024 REGIO NAL PANEL 8 S944-HdX careless weed <0.10 Not Available [facility] ([facility]) [address] [place], [address], 05/16/2024 17:07:59 05/09/20 24 05/16/2024 REGIO NAL PANEL 8 H022-FnS ragweed, false 1.02 kU/L classi i abnormal Not Available [facility] ([facility]) [address] [place], [address], 05/16/2024 17:07:59 05/09/20 24 05/16/2024 REGIO NAL PANEL 8 M100-NeG ragweed, western 7.48 kU/L classi v abnormal Not Available [facility] ([facility]) [address] [facility], [place], [address], 05/16/2024 17:07:59 05/09/20 24 05/16/2024 REGIO NAL PANEL 8 P495-TyL lenscale <0.10 Not Available [facility] ([facility]) [address] [facility], [place], [address], 05/16/2024 17:07:59 05/09/20 24 05/09/2024 influ warner virus A + B + SARS- CoV-2 (COVI D19) Ag panel , rapid IA, upper respi rator y speci men Flu A negati ve Not Available In-Office Order Internal Use Only DO Not Attach Compendium DO Not Attach Compendium, Do Not Delete/merge, [id number] 05/09/2024 15:42:33 05/09/20 24 05/09/2024 influ warner virus A + B + SARS- CoV-2 (COVI D19) Ag panel , rapid IA, upper respi rator y speci men Flu B negati ve Not Available In-Office Order Internal Use Only DO Not Attach Compendium DO Not Attach Compendium, Do Not Delete/merge, [id number] 05/09/2024 15:42:33 05/09/20 24 05/09/2024 influ warner virus A + B + SARS- CoV-2 (COVI D19) Ag panel , rapid IA, upper respi rator y speci men Rapid SARS CoV 2 Ag, QL IA, respiratory specimen negati ve Not Available In-Office Order Internal Use Only DO Not Attach Compendium DO Not Attach Compendium, Do Not Delete/merge, [id number] 05/09/2024 15:42:33 07/02/19 25 07/03/2024 SEDIM ENTAT ION RATE- WESTE RGREN sedimentatio n rate-westerg radha 33 mm/HR 0-32 above high normal Not Available [facility] ([facility]) [address] [facility], [place], [address], 07/03/2024 15:13:52 07/02/19 25 07/03/2024 JACOB+R F QN JACOB direct NEGATI VE negati ve Not Available [facility] ([facility]) [address] [facility], [place], [address], 07/03/2024 15:13:53 07/02/19 25 07/03/2024 JACOB+R F QN rheumatoid factor (rf) <10.0 IU/mL <14.0 Not Available [facility] ([facility]) [address] [facility], [place], [address], 07/03/2024 15:13:53 10/30/1910/29/2024 urina lysis , dipst ick Leukocytes Negati ve Not Available In-Office Order Internal Use Only DO Not Attach Compendium DO Not Attach Compendium, Do Not Delete/merge, 10/29/2024 18:10:01 10/30/1910/29/2024 urina lysis , dipst ick Nitrite negati ve Not Available In-Office Order Internal Use Only DO Not Attach Compendium DO Not Attach Compendium, Do Not Delete/merge, 10/29/2024 18:10:01 10/30/1910/29/2024 urina lysis , dipst ick Urobilinogen .2 Not Available In-Of fice Order Internal Use Only DO Not Attach Compendium DO Not Attach Compendium, Do Not Delete/merge, 10/29/2024 18:10:01 10/30/1910/29/2024 urina lysis , dipst ick Protein Negati ve Not Available In-Office Order Internal Use Only DO Not Attach Compendium DO Not Attach Compendium, Do Not Delete/merge, 10/29/2024 18:10:01 10/30/1910/29/2024 urina lysis , dipst ick pH 6.0 Not Available In-Office Order Internal Use Only DO Not Attach Compendium DO Not Attach Compendium, Do Not Delete/merge, 10/29/2024 18:10:01 10/30/19 25 10/29/2024 urina lysis , dipst ick Blood Negati ve Not Available In-Office Order Internal Use Only DO Not Attach Compendium DO Not Attach Compendium, Do Not Delete/merge, [facility] 10/29/2024 18:10:01 10/30/19 25 10/29/2024 urina lysis , dipst ick Specific Egnar 1.015 Not Available In-Off ice Order Internal Use Only DO Not Attach Compendium DO Not Attach Compendium, Do Not Delete/merge, [facility] 10/29/2024 18:10:01 10/30/19 25 10/29/2024 urina lysis , dipst ick Ketone Negati ve Not Available In-Office Order Internal Use Only DO Not Attach Compendium DO Not Attach Compendium, Do Not Delete/merge, [facility] 10/29/2024 18:10:01 10/30/19 25 10/29/2024 urina lysis , dipst ick Bilirubin Negati ve Not Available In-Office Order Internal Use Only DO Not Attach Compendium DO Not Attach Compendium, Do Not Delete/merge, [facility] 10/29/2024 18:10:01 10/30/19 25 10/29/2024 urina lysis , dipst ick Glucose Negati ve Not Available In-Office Order Internal Use Only DO Not Attach Compendium DO Not Attach Compendium, Do Not Delete/merge, [facility] 10/29/2024 18:10:01 10/30/19 25 10/29/2024 urina lysis , dipst ick Appearance Clear Not Available In-Offi ce Order Internal Use Only DO Not Attach Compendium DO Not Attach Compendium, Do Not Delete/merge, [facility] 10/29/2024 18:10:01 10/30/19 25 10/29/2024 urina lysis , dipst ick Color Yellow Not Available In-Office Order Internal Use Only DO Not Attach Compendium DO Not Attach Compendium, Do Not Delete/merge, [facility] 10/29/2024 18:10:01 04/10/20 24 04/09/2024 MAMMO , scree ashutosh, digit al, bilat eral No observ ation record ed. [facility] [address], [place], [address], 04/11/2024 10:26:58 05/07/2005/07/2024 XR, chest No observ ation record ed. [facility] [address], [place], [address], 05/07/2024 12:55:21 05/12/2005/11/2024 XR, chest No observ ation record ed. [address], [place], [address], 05/13/2024 08:47:28 05/12/2005/11/2024 CT, chest , w/o contr ast No observ ation record ed. [address], [place], [address], 05/13/2024 08:45:42 06/04/20 24 06/04/2024 MAMMO , diagn ostic , unila teral No observ ation record ed. [facility] [address], [place], [address], 06/11/2024 09:18:11 08/07/1908/07/2024 CT, abdom en + pelvi s, w/ contr ast No observ ation record ed. [address], [place], [address], 08/08/2024 08:52:52 08/30/1908/23/2024 XR, jamia ble No observ ation record ed. [address] [place], [address], 09/11/2024 16:00:16 Result Notes None recorded. Problems Name Problem SNOMED Code Status Onset Date Resolution Date Notes Provider Name and Address Organization Details Recorded Time Upper respirato ry infection 56473734 Active KRISTINA [place], [place] - [facility] 2 14:28:16 Chest pain 29664695 Completed 201311/02/2013 Chastity RodriguezKRISTINA null, [place] - [facility] 2 14:28:16 Ulcerativ e colitis 50248007 Active 2016 Tabitha Ortega [place] null, [place] [facility] 1 14:45:32 Cyst of kidney 720956240 Active 2018 Tabithameggan OrtegaSTONEY null, [place] - [facility] 1 14:45:32 Palpitati ons 47153787 Active 2016 Tabitha [place]tega [place] [facility] 1 14:45:32 Mitral valve prolapse 804028049 Active 2016 Tabithameggan OrtegaSTONEY [place], [place] [facility] 1 14:45:32 Dizziness 794961286 Active 2016 Tabitha [place]te[place] [facility] 1 14:45:32 Microscop ic hematuria 015984568 Completed 201105/24/2012 Chastity RodriguezKRISTINA [place], [place] [facility] 2 14:28:16 Atrial tachycard ia 838067963 Active 2016 Tabitha [place] [facility] 1 14:45:32 Premature atrial contracti on 130791622 Active 2016 Tabitha [place] [facility] 1 14:45:32 Ventricul ar premature beats 34479752 Active 2016 Tabitha Ortega STONEY [place] [facility] 1 14:45:32 COVID-19 074633321 Active 2020 Jil Costa [place] [facility] 1 18:16:51 History of SARS-CoV- 2 06069225049 9999967 Active 2020 Chastity Rodriguez USAMAViri [place] [facility] 2 14:27:01 Deep venous thrombosi s of lower extremity 395367385 Active KRISTINA Kap[place] [facility] 2 14:31:01 Breast lump 44779715 Active Chastity JenniferKRISTINA meeks, [facility] 2 14:28:16 Shoulder syndrome 169973594 Active KRISTINA Kapoor null, [facility] 2 14:28:16 Problem Notes None recorded. Procedures Surgical History Date Name Laterality Status Provider Name and Address Organization Details Recorded Time 2023 Date of Last Pap Smear completed Jil Costa MA [facility] 4 18:04:08 2021 Date of Last Mammogram completed Jil Costa MA [facility] 4 10:41:17 2021 Most Recent Mammogram completed Li Lawson RN [facility] 2 13:28:36 2018 esophagogastroduodenoscopy completed Malcom Waldron MA [facility] 9 09:26:08 2018 Colonoscopy completed Oneida Waldron MA [facility] 9 13:20:34 2009 Nephrectomy completed Li Lawson RN [facility] 5 14:39:49 2000 Knee Surgery completed Li Lawson RN [facility] 5 14:39:49 1995 Hernia Repair completed Li Lawson RN [facility] 5 14:39:49 Tubal Ligation completed Li Lawson RN [facility] 5 14:39:49 Imaging Results None recorded. Procedure Notes None recorded. Medical Equipment None Reported. Allergies Allergen ID Allergen Name Allergen Category Reaction Reaction Severity Criticality Documentation Date Start Date Code Code System Note Provider Name and Address Organization Details Recorded Time 204856 prochlorp erazine medicatio n Not available Not available Not available 03/10/2021 8704 RxNorm Other react ions and sever ities : 'Unkn own'. STONEY Morales, [facility] 1 14:45:15 677774 codeine medicatio n nausea vomiting mild mild Not available 03/10/20212014 2670 RxNorm STONEY Morales, [place] - [facility] 1 14:45:15 464704 meperidin e medicatio n nausea vomiting mild mild Not available 03/10/20212014 6754 JunieSTONEY Richardson, [place] - [facility] 1 14:45:15 Medications Name Sig Start Date Stop Date Status Note LastModified by Organization Details LastModified Time cyclobenzap rine 10 mg tablet Take 1 tablet as needed by oral route in the evening for 15 days. 03/10 completed Not Available Not Available Not Available buspirone 5 mg tablet Take 1 tablet [...] Available Not Available Not Available Nortrel 1/35 (28) 1 mg-35 mcg tablet TAKE 1 TABLET BY MOUTH EVERY DAY FOR 21 DAYS 12/24 completed Not Available Not Available Not Available colesevelam 625 mg tablet TAKE 1 TABLET BY MOUTH THREE TIMES DAILY 2024 active Not Available Not Available Not Avai lable benzonatate 100 mg capsule TAKE 1 CAPSULE BY MOUTH TWICE DAILY NEEDED FOR COUGH 11/26 completed Not Available Not Available Not Available cephalexin 500 mg capsule TK 1 C PO Q 8 H FOR 10 DAYS UTD 05/08 completed Not Available Not Available Not Available Nortrel 35 (21) 1 mg-35 mcg tablet Take 1 [...] completed Not Available Not Available Not Available methylpredn isolone 4 mg tablets in a dose pack Take 1 dose pk by oral route as directed. 07/02 completed Not Available Not Available Not Available albuterol sulfate HFA 90 mcg/actuati on aerosol inhaler 2 {puff}s by inhalatio n route. 01/21 completed Not Available Not Available Not Available naproxen 500 mg tablet TAKE 1 TABLET BY MOUTH TWICE DAILY NEEDED FOR PAIN 08/23 completed Not Available Not Available Not Available amoxicillin 875 mg-potassiu m clavulanate 125 mg tablet TAKE 1 TABLET BY MOUTH EVERY 12 HOURS FOR 10 DAYS 07/28 completed Not Available Not Available Not Available neomycin-po lymyxin-hyd rocort 3.5 mg-10,000 unit/mL-1 % ear drops,susp SHAKE LIQUID AND INSTILL 4 DROPS TO AFFECTED EAR THREE TIMES DAILY 05/23 completed Not Available Not Available Not Available azithromyci n 500 mg tablet TAKE ONE TABLET BY MOUTH ONCE DAILY FOR 3 DAYS 07/02 completed Not [...] Available Not Available Ubrelvy 100 mg tablet TAKE 1 TABLET BY MOUTH EVERY DAY NEEDED active Not Available Not Available No t Available Paxlovid 300 mg (150 mg x 2)-100 mg tablets in a dose pack TAKE 2 NIRMATREL VIR TABLETS AND 1 RITONAVIR TABLET TOGETHER BY MOUTH TWICE DAILY FOR 5 DAYS 05/23 completed Not Available Not Available Not Available Gallifrey 5 mg tablet active Not Available Not Available No t Available Vitals Date Recorded Body height Body mass index (BMI) Body weight Oxygen saturation Oxygen saturation in Arterial blood by Pulse oximetry Heart rate Systolic And Diastolic Provider Name and Address Organization Details Last Updated DateTime 5 143.51 cm 27.8 kg/m2 77017.6 4 g 97 % 97 % 84 /min 99/63 mm[Hg] Brittanie Serrano MA [place] - [facility] 5 15:43:30 Date Recorded Body height Body mass index (BMI) Body weight Respiratory rate Oxygen saturation Oxygen saturation in Arterial blood by Pulse oximetry Heart rate Systolic And Diastolic Provider Name and Address Organization Details Last Updated DateTime 5 143.51 cm 28.1 kg/m2 18189.6 7 g 16 /min 99 % 99 % 52 /min 118/80 mm[Hg] Angelina Falcon MA [facility] 5 11:02:58 Date Recorded Body height Body mass index (BMI) Body weight Respiratory rate Oxygen saturation Oxygen saturation in Arterial blood by Pulse oximetry Heart rate Systolic And Diastolic Provider Name and Address Organization Details Last Updated DateTime 5 143.51 cm 28.5 kg/m2 08959.5 7 g 16 /min 99 % 99 % 76 /min 108/68 mm[Hg] Angelina Falcon MA [facility] 5 18:12:40 Date Recorded Body height Body mass index (BMI) Body weight Oxygen saturation Oxygen saturation in Arterial blood by Pulse oximetry Heart rate Systolic And Diastolic Provider Name and Address Organization Details Last Updated DateTime 4 143.51 cm 26.4 kg/m2 57277.0 8 g 98 % 98 % 61 /min 121/69 mm[Hg] Jil Costa MA [facility] 4 15:44:05 Social History Question Answer Notes LastModified by Organizat ion Details LastModified Time Tobacco Smoking Status Never Smoker Karol Tompkins MA [facility] 06/20/2014 15:11:16 Are You Blind Or Do You Have Difficulty Seeing? No Information n ot available 01/11/2021 What Is Your Level Of Caffeine Consumption? Occasional Information not available 01/11/2021 How Much Tobacco Do You Chew? None Information not available 05/08/2020 In The 14 Days Before Symptom Onset, Have You Had Close Contact With A Laboratory-confirm ed COVID-19 While That Case Was Ill? No Information n ot available 08/13/2020 In The 14 Days Before Symptom Onset, Have You Had Close Contact With A Person Who Is Under Investigation For COVID-19 While That Person Was Ill? No Information not available 08/13/2020 Have You Been To An Area Known To Be High Risk For COVID-19? No Information not available 08/13/2020 Are You Deaf Or Do You Have Serious Difficulty Hearing? No Information not available 01/11/2021 What Type Of Diet Are You Following? REGULAR Information n ot available 05/08/2020 Which Illicit Or Recreational Drugs Have You Used? None Information not available 05/08/2020 Are There Any Guns Present In Your Home? No Information not available 01/11/2021 Marital Status Informatio n not available 05/08/2020 What Was The Date Of Your Most Recent Tobacco Screening? 09/03/2024 Information not available 09/03/2024 How Many Children Do You Have? 2 Information not available 08/10/2015 What Is Your Relationship Status? Information not available 08/10/2015 Do You Use Your Seat Belt Or Car Seat Routinely? Yes Information not available 01/11/2021 Do You Have Smoke And Carbon Monoxide Detectors In Your Home? Yes Information not available 01/11/2021 Are You Passively Exposed To Smoke? No Information no t available 01/11/2021 How Much Tobacco Do You Smoke? No Information not available 12/11/2019 General Stress Level High Information not available 05/08/2020 Has Tobacco Cessation Counseling Been Provided? No Information not available 02/03/2021 On What Date Was Tobacco Cessation Counseling Provided? 09/03/2024 Information not available 09/03/2024 Sex: Female Functional Status Question Answer Note LastModified by Organizat ion Details LastModified Time Do you use any illicit or recreational drugs? No Information not available 01/11/2021 Do you or have you ever used any other forms of tobacco or nicotine? No Information not available 02/03/2021 What is your level of alcohol consumption? None Information not available 05/08/2020 Do you or have you ever used smokeless tobacco? Never used smokeless tobacco Information not available 12/11/2019 Are you currently employed? Yes Information not available 09/09/2022 Are you able to care for yourself? Yes Information not available 01/11/2021 What is your occupation? [employer] Information not available 09/09/2022 Do you or have you ever used e-cigarettes or vape? Never used electronic cigarettes Information not available 12/11/2019 What is your exercise level? None Information not available 09/09/2022 Mental Status Question Answer Note LastModified by Organization D etails LastModified Time Do you feel stressed (tense, restless, nervous, or anxious, or unable to sleep at night)? [id number] Information not available 09/09/2022 Family History Relationship Description Onset Age of [...] Anemia N Gastrointestinal Disease Y Heart Attack (MD) N Anxiety Disorder N Diabetes N Muscle, [...] Recorded Time DTaP 1975 completed Not Available [facility] 10/07/2022 16:50:08 DTaP 02/14/1976 completed Not Available [facility] 10/07/2022 16:50:08 DTaP 03/29/1976 completed Not Available [facility] 10/07/2022 16:50:08 DTaP 08/22/1977 completed Not Available [facility] 10/07/2022 16:50:08 DTaP 01/20/1981 completed Not Available [...] dose 10/19/2023 completed Brittanie Serrano MA null, [place] - [facility] 10/19/2023 15:34:50 Hep A, adult 11/27/2023 completed Brittanie Serrano [place] null, [place] [facility] 11/27/2023 15:51:53 Past Encounters Encounter ID Performer Location Encounter Start Date Encounter Closed Date Diagnosis/Indication Diagnosis SNOMED-CT Code Diagnosis ICD10 Code Diagnosis Note [id number] [facility] [address] [place] [address] 06/20/2014 14:55:29 06/24/2014 16:31:12 Shoulder syndrome [id number] MD Keli Casillas ([place] [address]) [address] [facility] [place] [address] 08/10/2015 15:21:05 08/11/2015 12:04:47 Gynecologic examination 58513987 Z01.419 Screening for malignant neoplasm of breast 323351930 Z12.39 [id number] [facility] [address] [place] [address] 03/03/2016 14:10:22 03/03/2016 15:11:55 Breast lump 43232323 N63 [id number] [facility] [address] [place] [address] 11/15/2016 13:55:10 11/15/2016 15:21:30 Nausea and vomiting 61836682 R11.2 Benign par oxysmal positional vertigo 833612784 H81.13 [id number] MD Keli Casillas ([facility] 205) [address] [facility] [place] [address] 06/20/2017 10:11:40 06/21/2017 15:05:53 Gynecologic examination 77577328 Z01.419 Screening for malignant neoplasm of breast 020871584 Z12.39 [id number] MD Samuel Ro [address] [place] [address] 10/19/2017 15:20:17 10/19/2017 16:40:58 Standard chest X-ray abnormal 075295783 R93.8 Breast lump 96367767 N63 .0 Persistent cough 1245486 02 R05 Dysuria 89759562 R30.0 [id number] Osvaldo Gerber PA-C [facility] [address] [place] [address] 08/15/2018 11:13:29 08/15/2018 12:30:41 Thoracic back pain 962009581 M54.6 [id number] Nicky Costa MD [place] [address] OB [address] [facility] [place] [address] 08/31/2018 11:27:42 09/03/2018 08:27:41 Gynecologic examination 76312632 Z01.419 Screening for malignant neoplasm of breast 807881283 Z12.39 Urinary tr act infectious disease 64809381 N39.0 [id number] Osvaldo Gerber PA-C [facility] [address] [place] [address] 09/26/2019 13:20:36 09/27/2019 09:09:43 Urinary tract infectious disease 81704511 N39.0 [id number] Osvaldo Gerber PA-C [facility] [address] [place] [address] 12/11/2019 09:43:14 12/11/2019 11:57:49 Adult health examination 963661389 Z00.00 [id number] [facility] [place] [address] [place] [address] 02/20/2020 10:18:56 02/25/2020 13:38:51 Suspected COVID-19 291763853 Z03.818 D/w pt the current pandemic of COVID-19 and call for social isolation in order to blunt the curve and minimize risk and spread. Encouraged patient and family to take restrictio ns seriously. They have verbalized understand ing of such. Viral syndrome 166507805 B34.9 [id number] Shree Cunningham MD [facility] [address] [place] [address] 05/08/2020 16:49:17 05/08/2020 17:20:22 Recurrent acute sinusitis 761151239 J01.01 [id number] MD Pamella Armenta [address] [place] [address] 05/11/2020 13:49:11 05/12/2020 09:15:50 Suspected COVID-19 354795509 Z03.818 D/w pt the current pandemic of COVID-19 and call for social isolation in order to blunt the curve and minimize risk and spread. Encouraged patient and family to take restrictio ns seriously. They have verbalized understand ing of such. Viral syndrome 577367887 B34.9 [id number] Osvaldo Gerber PA-C [facility] [address] [place] [address] 08/13/2020 10:00:09 08/14/2020 06:50:31 Pain of right hip joint 0730187489 62509 M25.551 Neck pain 36451613 M54.2 [id number] Nicky Costa MD [place] [address] [address] 10/19/2020 11:51:27 10/20/2020 13:23:59 Dysuria 89313150 R30.0 Gynecologi c examination 30110456 Z01.419 Screening for malignant neoplasm of breast 041198823 Z12.39 [id number] Shree Cunningham MD [facility] [address] [place] [address] 01/11/2021 10:08:23 01/11/2021 16:52:45 Upper respiratory infection 47752464 J00 [id number] Osvaldo Gerber PA-C [facility] [address] [place] [address] 02/03/2021 09:25:13 02/08/2021 10:44:34 COVID-19 049316892 U07.1 [id number] Shree Cunningham MD [facility] [address] [place] [address] 02/23/2021 09:47:44 02/23/2021 11:45:25 COVID-19 791231299 U07.1 Acute diarrhea 626248973 R19.7 [id number] Osvaldo Gerber PA-C [facility] [address] [place] [address] 03/10/2021 14:25:17 03/10/2021 15:18:10 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 [id number] Osvaldo Gerber PA-C [facility] [address] [place] [address] 04/16/2021 15:10:48 04/20/2021 11:11:45 Gastroesophageal reflux disease without esophagitis 927856572 K21.9 Synovial f luid: abnormal content 749244589 R89.9 Synovial c yst of left knee 9892917203 47519 M71.22 [id number] Osvaldo Gerber PA-C [facility] [address] [place] [address] 05/12/2021 16:42:00 05/14/2021 09:09:24 Acute deep venous thrombosis of popliteal vein of left leg 8855040807 01380 I82.432 Obesity 476747975 E66.09 Peripheral vascular disease 359843839 I73.9 [id number] Osvaldo Gerber PA-C [facility] [address] [place] [address] 05/25/2021 18:13:52 05/31/2021 10:01:32 Unintentional weight gain 4792969076 45458 R63.5 Deep venou s thrombosis of lower extremity 482628882 I82.605 [id number] Osvaldo Gerber PA-C [facility] [address] [place] [address] 06/15/2021 18:20:00 06/16/2021 09:15:05 Pain of left calf 8432249722 949748 M79.426 [id number] [facility] [address] [place] [address] 06/22/2021 10:12:30 06/22/2021 11:32:09 COVID-19 580783250 U07.1 [id number] Osvaldo Gerber PA-C [facility] [address] [place] [address] 07/28/2021 18:06:22 07/28/2021 18:29:11 Active or passive immunization 708605352 Z23 [id number] Shree Cunningham MD [facility] [address] [place] [address] 08/12/2021 10:10:17 08/13/2021 07:52:45 Acute maxillary sinusitis 22960996 J01.01 Chronic mi graine without aura 5259031577 67566 G43.882 [id number] Shree Cunningham MD [facility] [address] [place] [address] 09/13/2021 14:52:13 09/13/2021 15:34:41 Lumbar radiculopathy 752781398 M54.16 [id number] MD Keli Casillas [address] [facility] [place] [address] 11/02/2021 11:19:45 11/03/2021 15:41:22 Gynecologic examination 33431927 Z01.419 Screening for malignant neoplasm of breast 163360051 Z12.39 [id number] Osvaldo Gerber PA-C [facility] [address] [place] [address] 11/04/2021 10:23:13 11/04/2021 11:20:05 Pain of left calf 6307790739 947155 M79.826 [id number] Shree Cunningham MD [facility] [address] [place] [address] 12/24/2021 15:49:36 12/24/2021 16:36:43 Right lower quadrant pain 991519184 R10.31 [id number] Osvaldo Gerber PA-C [facility] [address] [place] [address] 01/06/2022 14:45:29 01/06/2022 15:42:33 Generalized anxiety disorder 58747252 F41.1 Overweight 936794440 E66 .3 [id number] Osvaldo Gerber PA-C [facility] [address] [place] [address] 01/18/2022 15:17:24 01/19/2022 12:11:16 Lower abdominal pain 42599475 R10.33 [id number] MD Keli Casillas [address] [facility] [place] [address] 05/06/2022 14:04:22 05/09/2022 07:20:17 Chronic pelvic pain of female 165763588 R10.2 [id number] Osvaldo Gerber PA-C [facility] [address] [place] [address] 08/19/2022 14:47:03 08/30/2022 08:47:54 Pain due to varicose veins of lower extremity 685170418 I83.812 Pain of le ft knee joint 0021997868 15720 M25.562 Synovial c yst of left knee 6845750299 04644 M71.22 Overweight 745794133 E66 .3 [id number] Osvaldo Gerber PA-C [facility] [address] [place] [address] 09/09/2022 11:35:21 09/12/2022 12:54:47 Otalgia of left ear 3328418012 H92.02 Essential hypertension 00759803 I10 Overweight 362024786 E66 .3 [id number] Shree Cunningham MD [facility] [address] [place] [address] 02/17/2023 15:09:34 02/21/2023 11:01:06 Viral syndrome 206523293 B34.9 [id number] Osvaldo Gerber PA-C [facility] [address] [place] [address] 05/23/2023 15:05:25 05/24/2023 09:50:52 History of pain of multiple joints 087255376 Z87.39 Raynaud's disease 658944 006 I73.00 Overweight 643991739 E66 .3 [id number] Osvaldo Gerber PA-C [facility] [address] [place] [address] 07/04/2023 17:19:28 07/05/2023 10:27:01 Viral syndrome 802240840 B34.9 Sore throat 416074841 J0 2.9 Acute maxi llary sinusitis 30225638 J01.01 Body mass index 20-24 - normal 229005071 Z68.24 Acute sero us otitis media of left ear 0421463717 395100 H65.02 [id number] Osvaldo Gerber PA-C [facility] [address] [place] [address] 07/28/2023 10:29:34 07/31/2023 15:28:17 Chronic sore throat 362526340 J31.2 [id number] Shree Cunningham MD [facility] [address] [place] [address] 10/19/2023 15:20:28 10/25/2023 13:17:05 Active or passive immunization 246722657 Z23 [id number] Shree Cunningham MD [facility] [address] [place] [address] 11/27/2023 15:03:20 12/08/2023 12:59:38 Stiffness of right knee 3018002383 94306 M25.661 Active or passive immunization 666246366 Z23 Adult heal th examination 521858661 Z00.00 [id number] Shree Cunningham MD [facility] [address] [place] [address] 12/19/2023 11:12:10 12/22/2023 14:11:11 Swelling of bilateral lower limbs 827449050 M79.89 Overweight 936547196 E66 .3 [id number] Osvaldo Gerber PA-C [facility] [address] [place] [address] 02/13/2024 17:39:35 02/23/2024 13:03:45 Mitral valve regurgitation 23833803 I34.0 Mixed hyperlipidemia 267 726317 E78.2 Pulmonic v alve regurgitation 07926602 I37.1 Chronic fa tigue syndrome 04301689 G93.32 Essential hypertension 52808264 I10 [id number] Osvaldo Gerber PA-C [facility] [address] [place] [address] 02/23/2024 11:51:41 02/26/2024 08:26:31 Sore throat 596098599 J02.9 Increased frequency of urination 632648448 R35.0 Overweight 458892900 E66 .3 Acute maxi llary sinusitis 54733280 J01.01 [id number] Osvaldo Gerber PA-C [facility] [address] [place] [address] 03/12/2024 16:26:22 03/19/2024 14:49:02 Pleuritic pain 7763838 R07.81 Fatigue 33729383 R53.83 Body mass index 20-24 - normal 161102182 Z68.24 [id number] Osvaldo Gerber PA-C [facility] [address] [place] [address] 03/29/2024 11:45:34 04/04/2024 11:27:19 Pain in right lower limb 076737009 M79.604 D-dimer ab ove reference range 044797197 R79.1 Overweight 449976379 E66 .3 [id number] Shree Cunningham MD [facility] [address] [place] [address] 05/09/2024 15:28:04 05/13/2024 12:00:05 Cough 01231745 R05.9 Acute bron chitis with bronchospasm 07067524 J20.9 Overweight 062909509 E66 .3 Environmental allergy 42 2907528 T78.49XA [id number] Shree Cunningham MD [facility] [address] [place] [address] 07/02/2024 15:31:42 07/05/2024 10:14:53 Raynaud's phenomenon 873866664 I73.00 Pain of mu ltiple joints 03144191 M25.59 Overweight 588702608 E66 .3 [id number] Shree Cunningham MD [facility] [address] [place] [address] 08/23/2024 10:43:58 08/26/2024 16:42:15 Hematochezia 079292400 K92.1 Temporoman dibular qgkbt-qpcj-lkvlojdgpx n syndrome 483816679 M26.622 Pain in right foot 93731 81835 00300 M79.671 Overweight 475739846 E66 .3 [id number] Shree Cunningham MD [facility] [address] [place] [address] 09/03/2024 17:50:22 09/04/2024 14:42:29 Right upper quadrant pain 165899737 R10.11 History of calculus of kidney 825487262 Z87.442 Overweight 108349634 E66 .3 Chronic mi graine without aura 9803603724 28020 G43.709 Gastroesop hageal reflux disease without esophagitis 310238718 K21.9 [id number] Shree Cunningham MD [facility] [address] [place] [address] 10/29/2024 18:06:53 10/30/2024 12:54:00 Flank pain 940198381 R10.9 Health Concerns Section Related Observation LastModified by Organization Detai ls LastModified Time None Recorded Concern Status LastModified by Organization Details LastModified Time None Recorded Advance Directives Directive None Recorded Payers Insurance Date Sequence Insurance Name Policy Number Policy Phan Covered Member ID Phan Member ID Guarantor Name 10/28/2021 1 [facility] [id number] Tristan Slimick [id number] Ramón Slimick 01/20/2022 2 [facility] - AETNA (POS II) Tristan Slimick [id number] Ramón Slimick 12/29/2021 [facility] Ramón Slimick 12/25/2024 1 [facility] [place] [facility] [place] CHOICE POS [place] (POS) [id number] Tristan Slimick [id number] Ramón Slimick 09/18/2024 1 [place] Armida L Slimick [id number] Ramón Slimick 09/18/2024 2 [employer] (POS) Armida L Slimick [id number] Ramón Slimick 09/18/2024 1 [place] [facility] (PPO) Armida L Slimick [id number] Ramón Slimick 09/18/2024 1 [email or web address] Armida L Slimick [id number] Ramón Slimick 07/12/2017 1 [facility] [id number] Tristan K Slimick [id number] Ramón Slimick 09/03/2024 2 *SELF PAY* Au stin Slimick 08/15/[address] [facility]ESS (PPO) [id number] Tristan Quiñones [id number] Ramón Quiñones Notes Date Note Type Note Provider Name and Address Organization Details Recorded Time 05/09/2024 text/html 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..also she has URI symptoms since Monday ...cough sore throat malaise Osvaldo Gerber PA-C Attn: Accounting, [address] [place], [address], [facility] 05/09/2024 16:06:56 07/02/2024 text/html says she has worsening Raynauds that was diagnosed by someone years ago...complains of morning bilateral joint pain and stiffness...also she complains of foot pain on cold floors...fingertip s turn white in cold water or with cold stimulus...was told by someone that Raynauds was auto immune Osvaldo Gerber PA-C Attn: Accounting, [address] [place], [address], [facility] 07/02/2024 16:05:16 08/23/2024 text/html vacation ...stomach hurt..hx of bowel problems..sees Cedric who says she may have ulcerative colitis...wants referred to him again (they told her she needs a referral) gallbladder out years ago..black stools...also foot pain in rt side Osvaldo Gerber PA-C Attn: Accounting, [address] [place], [address], [facility] 08/23/2024 11:23:46 09/03/2024 text/html still has abdominal pain..sees Cedric in first of September...CT of abdomen..normal..s ome cortical thinning of kidney(rt) some family hx of renal disease Osvaldo Gerber PA-C Attn: Accounting, [address] [place], [address], [place] [facility] 09/03/2024 18:35:22 OBGyn Episode No OBEpisode recorded.
--- OUTSIDE RECORDS SUMMARY | 2024-12-25 13:14 | XMS_ITS | Encounter Summary ---
Author Organization [facility] Address [address] [facility] [place] [address] Phone Care Team Providers Care Packer And Carry Out Name Role Phone Griffin Gerber Primary Care Provider [phone] Indu Wright MD Unavailable [phone] Jj Steele DO Unavailable [phone] Reason for Visit * Reason Comments Medication Refill Encounter Details Date Type Department Care Team (Late st Contact Info) Description 01/10/2021 Refill [facility] - General Surgery [facility] [address] [phone] Mack Dolan MD [address] [address] Medication Refill Social History Tobacco Use Types [...] on filedocumented in this encounter Care Teams Packer And Carry Out Relationship Specialty Start Date End Date Griffin Gerber, [facility] [address] [place] [address] PCP - General Physician X Ray Tech 05/18/15 Indu Wright MD [address] [place] [address] Consulting Physician General Surgery 05/18/15 Jj Steele DO [address] [place] [address] Gastroenterology 05/18/15 documented as of this encounter
--- OUTSIDE RECORDS SUMMARY | 2024-12-25 13:14 | XMS_ITS | Clinical Summary ---
Author Organization [facility] Address [address] [facility], [address] [address] Phone Care Team Providers Care Group President Name Role Phone Griffin Gerber Primary Care Provider [phone] Indu Wright MD Unavailable [phone] Jj Steele DO Unavailable [phone] Allergies Active Allergy Reactions Criticality Noted Date [...] 8:53 AM CDT Height 142.2 cm (4' 8) 04/12/2024 8:53 AM CDT Body Mass Index 24.66 04/12/2024 8:53 AM CDT Plan of Treatment Health Maintenance Due Date Last Done Comments Hepatitis C Virus (HCV) Screening 1975 Hepatitis B Immunization (1 of 3 - 19+ 3-dose series) 1994 Pap Smear 1996 Cervical Cancer Screening (CCS) 2005 HPV/Cotest 2005 Cologuard 2020 Immunochemical Fecal Occult Blood 2020 10/06/2015 Colonoscopy 11/24/2023 11/23/2020, 04/0 01/2019, 09/24/2018, Additional history exists Colorectal Cancer Screening 11/24/2023 SARS-COV-2 Immunization ( season) 2024 04/15/2022, 07/30/2021, 07/02/2021 Influenza Immunization (#1) 2025 Mammogram 04/09/2025 04/09/2024, 03/19, 02/02/2022, Additional history exists Respiratory Syncytial Virus (RSV) Immunization (Adult) (1 - 1-dose 75+ series) 2050 DTaP/Tdap/Td Immunization Discontinued 2021, 01/15/1991, 01/20/1981, Additional history exists TdaP Immunization Completed 07/28/2021 Discussion re Starting/Frequency of Mammograms Completed 04/09/2024, 03/29/2023, 02/02/2022, Additional history exists Human Papillomavirus (HPV) Immunization Aged Out No longer eligible based on patient's age to complete this topic Meningococcal Immunization (ACWY) Aged Out No longer [...] to exams dated: 02/02/2022, 12/14/2020, and 12/10/2019 [facility]. BREAST TISSUE:The tissue of both breasts is [...] exam. Electronically signed by: Yuki goldstein/chinedu:03/29/2023 18:51:18 Senior Reservations Agent(s): RT Stanley(R)(M), [facility] letter sent: Normal Exam Reading location: [facility] BI-RADS: 1 Negative Procedure Note Yuki [...] to exams dated: 02/02/2022, 12/14/2020, and 12/10/2019 [facility]. BREAST TISSUE:The tissue of both breasts is [...] exam. Electronically signed by: Yuki goldstein/chinedu:03/29/2023 18:51:18 Senior Reservations Agent(s): RT Stanley(R)(M), [facility] letter sent: Normal Exam Reading location: [facility] BI-RADS: 1 Negative us Lucia Francisco MD IMG MAMMO ORDERABLES Final Result * HM COLONOSCOPY (10/15/2015) us Jj Steele DO PROCEDURE/MINOR SURGICAL ORDERA BLES Final Result * (ABNORMAL) Stool Occult Blood - Diagnostic (10/06/2015 1:16 PM CDT) OCCULT BLOOD DIAG Positive(A ) Negative 10/06/2015 2:38 PM CDT [facility] Stool specimen (specimen) Non-Phlebotomy Collection / Unknown 10/06/2015 1:16 PM CDT 10/06/2015 2:27 PM CDT us Marky Ponce MD BODY FLUIDS & STOOLS ORDERABLES Final Result [facility] [address] [place] [address] from Last 3 Months or Most Recently Relevant to Health Maintenance Insurance [employer] [facility] Care Teams Group President Relationship Specialty Start Date End Date Griffin Gerber PAC [address] [place] [address] PCP - General Physician Relief Mate 05/18/15 Indu Wright MD [address] [place] [address] Consulting Physician General Surgery 05/18/15 Jj Steele DO [address] [place] [address] Gastroenterology 05/18/15
[2024-12-25 13:36] LABS: Hematocrit 39.8 % (37.0-47.0); Hemoglobin 12.9 g/dL (12.0-15.0); Immature Granulocyte Percent A 0.3 % (0-0.5); Lymphocytes Absolute Auto 2.39 K/mm3 (0.9-3.2); Mean Corpuscular HGB Conc 32.4 g/dl (32-36); Mean Corpuscular Hemoglobin 28.0 pg (26-34); Mean Corpuscular Volume 86.5 fl (80-100); Nucleated Red Blood Cells Absolute Auto 0.000 K/mm3 (0.0-0.012); Nucleated Red Blood Cells Perc 0.0 % (0.0-0.2); Platelet Count Result 257 k/mm3 (150-375); Red Blood Count 4.60 M/mm3 (4.2-5.4); White Blood Count 7.7 K/mm3 (4.5-10.0)
[2024-12-25 13:46] LABS: INR 1.0; Prothrombin Time 13.1 Seconds (11.1-14.7)
[2024-12-25 13:47] LABS: Alanine Aminotransferase 32 U/L (6-35); Albumin Level 4.6 g/dL (3.5-5.1); Alkaline Phosphatase 49 U/L (38-126); Anion Gap 10 mmol/L (4-12); Aspartate Amino Transferase 39 U/L (14-36); Bilirubin,Total 0.3 mg/dL (0.2-1.3); Blood Urea Nitrogen 11 mg/dL (7-17); Calcium 9.5 mg/dL (8.4-10.2); Carbon Dioxide 23 mmol/L (22-30); Chloride 109 mmol/L (98-107); Estimated Glomerular Filt Rate > 60; Glucose 114 mg/dL (65-110); Lipase 257 U/L (23-300); Partial Thromboplastin Time 23.9 Seconds (22.3-36.8); Potassium 4.1 mmol/L (3.4-5.0); Sodium 142 mmol/L (137-145); Total Protein 8.1 g/dL (6.3-8.2)
[2024-12-25 13:57] LABS: Troponin I < 0.012 ng/mL (0.000-0.034)
--- NOTE | 2024-12-25 14:56 | ED_ITS ---
HPI - General Adult General Chief complaint: Arrhythmia/Palpitations Stated complaint: low HR Time Seen by Provider: 12/25/24 14:10 History of Present Illness HPI narrative: 49-year-old female presented to the emergency department for evaluation for intermittent heart palpitations and low heart rate. Patient states she does have a longstanding history of heart palpitations chest pain lightheaded dizziness. Patient reports she has had follow-up with Cardiology for this. Patient is on metoprolol for her heart palpitations. Patient does take 25 mg b.i.d. but states she often misses her 2nd dose. Patient did have follow-up with Dr. Dockery few weeks ago but was not having the symptoms. Patient presented to urgent care for evaluation of her left ear and patient was found to have heart rate in the 40s. Arrival to the emergency department patient's heart rate is mid 50s. Related Data Home Medications ?Medication ?Instructions ?Recorded ?Confirmed ?Last Taken ?Type norethindrone 1 mg-ethinyl 1 tablet PO DAILY 01/05/21 10/26/23 Unknown History estradiol 35 mcg tablet (Nortrel) Allergies Allergy/AdvReac Type Severity Reaction Status Date / Time PAIN MEDS Allergy Mild Hives Uncoded 05/11/24 20:51 PAIN MEDS Allergy Rash Uncoded 05/11/24 20:51 Review of Systems 2 Review of Systems: All systems reviewed & are unremarkable except as noted in HPI and below PMFSH Past Medical History Medical History Hair loss GERD (gastroesophageal reflux disease) Abnormality of heart beat SOB (shortness of breath) Wears glasses Vision changes Chronic headaches History of adverse reaction to anesthesia Hx of deep venous thrombosis 2020 Mitral valve regurgitation Surgical History Surgical History History of cholecystectomy History of partial nephrectomy History of hernia repair Hx of arthroscopy of left knee 1999 Family History Family History Other Arthritis Asthma Diabetes mellitus Heart disease High cholesterol Hypertension Social History Social History Smoking status: Never smoker Substance use: never Living arrangements: with family Gender identity (if verbalized by the patient): Female Exam 2 Narrative: APPEARANCE: Well appearing, no pain, no distress, well-nourished. HEAD: normocephalic, atraumatic. EYES: PERRLA/EOMI, conjunctivae clear. NOSE: Normal no drainage EARS: Cerumen impaction of left ear THROAT: Pharynx clear, no exudate. NECK: Supple. No adenopathy, no masses. RESPIRATORY: Airway patent, respirations nonlabored. Clear to auscultation bilaterally, no rales, rhonchi, wheezing. CARDIOVASCULAR: Regular rate and rhythm without murmurs rubs or gallops. ABDOMINAL: Soft, nontender, nondistended, normal bowel sounds MUSCULOSKELETAL: Moves all extremities. Strength/ROM intact, No edema, No calf tenderness. NEURO: Alert. Cranial nerves II through XII intact. Good gait. Good coordination SKIN: Warm, dry. Normal Color Course Vital Signs Vital signs: Vital Signs Temperature 98.0 F 12/25/24 13:25 Pulse Rate 58 L 12/25/24 13:25 Blood Pressure 124/58 L 12/25/24 13:25 Pulse Oximetry 100 12/25/24 13:25 Temperature 97.3 F L 12/25/24 17:40 Pulse Rate 50 L 12/25/24 17:40 Respiratory Rate 188 H 12/25/24 17:40 Blood Pressure 116/65 12/25/24 17:40 Pulse Oximetry 100 12/25/24 17:40 Medical Decision Making [facility] Narrative Medical decision making narrative: 49-year-old female present to the emergency department for evaluation for intermittent heart palpitations and low heart rate today. Patient does take 25 mg metoprolol b.i.d.. Patient states sometimes she does miss her evening dose is unsure if it is meant the Toprol as causing her lower heart rate. Patient is currently afebrile with no leukocytosis hemoglobin is 12.9. INR is 1.0. No acute abnormalities on her CMP occluding a normal potassium and normal Mag. No elevated troponin. Chest x-ray shows no acute cardiopulmonary abnormality. EKG does show sinus bradycardia. Patient's heart rate ranges low 50s to low 60s. I did discussed case with Cardiology and he was comfortable with plan to discharge the patient to home and have her switch her metoprolol to 12.5 mg b.i.d. and to have close outpatient follow-up. Differential Diagnosis Differential Diagnosis: Adverse medication reaction, heart palpitations Vital Signs Vital Signs: Vital Signs Temperature 98.0 F 12/25/24 13:25 Pulse Rate 58 L 12/25/24 13:25 Blood Pressure 124/58 L 12/25/24 13:25 Pulse Oximetry 100 12/25/24 13:25 Temperature 97.3 F L 12/25/24 17:40 Pulse Rate 50 L 12/25/24 17:40 Respiratory Rate 188 H 12/25/24 17:40 Blood Pressure 116/65 12/25/24 17:40 Pulse Oximetry 100 12/25/24 17:40 Lab Data Lab results reviewed: Yes I reviewed the patient's lab results. 12/25/24 13:24 12/25/24 13:24 Labs: Lab Results 12/25/24 12/25/24 Range/Units 13:24 15:59 WBC 7.7 (4.5-10.0) K/mm3 RBC 4.60 (4.2-5.4) M/mm3 Hgb 12.9 (12.0-15.0) g/dL Hct 39.8 (37.0-47.0) % MCV 86.5 (80-100) fl MCH 28.0 (26-34) pg MCHC 32.4 (32-36) g/dl RDW 14.6 H (11.5-14.5) % Plt Count 257 (150-375) k/mm3 MPV 10.8 H (7.4-10.4) fl Immature Gran % (Auto) 0.3 (0-0.5) % Neut % (Auto) 58.4 (45.5-73.1) % Lymph % (Auto) 30.9 (18.3-44.2) % [place] % (Auto) 6.1 (2.6-8.5) % Eos % (Auto) 3.4 (0-4.4) % Baso % (Auto) 0.9 (0.2-1.2) % Lymph # (Auto) 2.39 (0.9-3.2) K/mm3 [place] # (Auto) 0.5 (0.1-0.6) K/mm3 Eos # (Auto) 0.3 (0-0.3) K/mm3 Baso # (Auto) 0.1 (0.0-0.1) K/mm3 Abs Immat Gran (auto) 0.02 (0.00-0.031) K/mm3 Absolute Neuts (auto) 4.5 (1.3-6.7) K/mm3 Absolute Nucleated RBC 0.000 (0.0-0.012) K/mm3 Nucleated RBC % 0.0 (0.0-0.2) % PT 13.1 (11.1-14.7) Seconds INR 1.0 APTT 23.9 (22.3-36.8) Seconds Sodium 142 (137-145) mmol/L Potassium 4.1 (3.4-5.0) mmol/L Chloride 109 H (98-107) mmol/L Carbon Dioxide 23 (22-30) mmol/L Anion Gap 10 (4-12) mmol/L BUN 11 (7-17) mg/dL Creatinine 0.83 (0.7-1.0) mg/dL Estim Creat Clear Calc Not Reportable Estimated GFR > 60 (59 - ) Glucose 114 H (65-110) mg/dL Calcium 9.5 (8.4-10.2) mg/dL Magnesium 2.1 (1.6-2.3) mg/dL Total Bilirubin 0.3 (0.2-1.3) mg/dL AST 39 H (14-36) U/L ALT 32 (6-35) U/L Alkaline Phosphatase 49 (38-126) U/L Troponin I < 0.012 < 0.012 (0.000-0.034) ng/mL Total Protein 8.1 (6.3-8.2) g/dL Albumin 4.6 (3.5-5.1) g/dL Lipase 257 (23-300) U/L Discharge Plan Discharge Clinical Impression: Sinus bradycardia Patient Disposition: Home Condition: Stable Instructions: Antibiotic Form Additional Instructions: Decrease your metoprolol to 12.5 mg b.i.d.. Have close follow-up with Cardiology. If you have any worsening symptoms then please call or return to the emergency department Patient Language: Ugandan Prescriptions: New metoprolol tartrate 25 mg tablet 12.5 mg PO BID 14 Days Qty: 14 0RF No Action Nortrel 1/35 (28) 1-35 mg-mcg tablet 1 tablet PO DAILY Follow-up/Referrals: Fredrick Dockery MD [Physician] - Buzz,ANCA Umaña [Primary Care Provider] -
--- OUTSIDE RECORDS SUMMARY | 2024-12-25 14:58 | XMS_ITS | Encounter Summary ---
Author Organization [facility] Address [address] [facility] [place] [address] Phone Care Team Providers Care Nuisance Wildlife Trapper Name Role Phone Griffin Gerber Primary Care Provider [phone] Indu Wright MD Unavailable [phone] Jj Steele DO Unavailable [phone] Reason for Visit * Reason Comments Medication Refill Encounter Details Date Type Department Care Team (Late st Contact Info) Description 04/05/2021 Refill [facility] - Gastroenterology - [place] [address] [place] [address] Torrie Hassan Jazmin, PAC [address] [place] [address] Medication Refill Social History Tobacco Use Types [...] epigastric documented in this encounter Care Teams Nuisance Wildlife Trapper Relationship Specialty Start Date End Date Griffin Gerber PAC [address] [place] [address] PCP - General Physician Carton Forming Machine Adjuster 05/18/15 Indu Wright MD [address] [place] [address] Consulting Physician General Surgery 05/18/15 Jj Steele DO [address] [place] [address] Gastroenterology 05/18/15 documented as of this encounter
--- OUTSIDE RECORDS SUMMARY | 2024-12-25 14:58 | XMS_ITS | Clinical Summary ---
Author Organization [facility] Address [address] [facility] [place], [address] [address] Phone Care Team Providers Care Welder/Fabricator Name Role Phone Griffin Gerber Primary Care Provider [phone] Indu Wright MD Unavailable [phone] Jj Steele DO Unavailable [phone] Allergies Active Allergy Reactions Criticality Noted [...] next screening exam. Electronically signed by: Yuki godlstein/chinedu:03/29/2023 18:51:18 Natural Resource Specialist(s): RT Stanley(R)(M), [facility] letter sent: Normal Exam Reading location: [facility] BI-RADS: 1 Negative Procedure Note [...] exam. Electronically signed by: Yuki goldstein/chinedu:03/29/2023 18:51:18 Natural Resource Specialist(s): RT Stanley(R)(M), [facility] letter sent: Normal Exam Reading location: [facility] BI-RADS: 1 Negative us Lucia Francisco MD IMG MAMMO ORDERABLES Final Result * HM COLONOSCOPY (10/15/2015) us Jj Steele DO PROCEDURE/MINOR SURGICAL ORDERA BLES Final Result * (ABNORMAL) Stool Occult Blood - Diagnostic (10/06/2015 1:16 PM CDT) OCCULT BLOOD DIAG Positive(A ) Negative 10/06/2015 2:38 PM CDT [facility] Stool specimen (specimen) Non-Phlebotomy Collection / Unknown 10/06/2015 1:16 PM CDT 10/06/2015 2:27 PM CDT us Marky Ponce MD BODY FLUIDS & STOOLS ORDERABLES Final Result [facility] [address] [place] [address] from Last 3 Months or Most Recently Relevant to Health Maintenance Insurance [employer] [facility] Care Teams Welder/Fabricator Relationship Specialty Start Date End Date Griffin Gerber PAC [address] [place] [address] PCP - General Physician Pipe Crew Foreman 05/18/15 Indu Wright MD [address] [place] [address] Consulting Physician General Surgery 05/18/15 Jj Steele DO [address] [place] [address] Gastroenterology 05/18/15
--- OUTSIDE RECORDS SUMMARY | 2024-12-25 14:58 | XMS_ITS | Clinical Summary ---
Author Organization [facility] Address [address] [place] [id number] Care Team Providers Care Insurance Loss Control Surveyor Name Role Phone Griffin Gerber Primary Care Provider [phone] Social History Tobacco Use Types Packs/Day Years [...] complete this topic Insurance [employer] Care Teams Insurance Loss Control Surveyor Relationship Specialty Start Date End Date Griffin Gerber PA PCP - General PHYSICIAN TRAINING AND DEVELOPMENT SPECIALIST 04/07/21
--- OUTSIDE RECORDS SUMMARY | 2024-12-25 14:58 | XMS_ITS | Encounter Summary ---
Author Organization [facility] Address [address] [facility] [place] [address] Phone Care Team Providers Care Fur Dry Cleaner Hand Name Role Phone Griffin Gerber Primary Care Provider [phone] Indu Wright MD Unavailable [phone] Jj Steele DO Unavailable [phone] Reason for Visit * Reason Comments Medication Refill Encounter Details Date Type Department Care Team (Late st Contact Info) Description 01/10/2021 Refill [facility] - General Surgery [facility] [address] [phone] Mack Dolan MD [address] [address] Medication Refill Social History Tobacco Use Types [...] on filedocumented in this encounter Care Teams Fur Dry Cleaner Hand Relationship Specialty Start Date End Date Griffin Gerber, [facility] [address] [place] [address] PCP - General Physician Federal Appellate Law Clerk 05/18/15 Indu Wright MD [address] [place] [address] Consulting Physician General Surgery 05/18/15 Jj Steele DO [address] [place] [address] Gastroenterology 05/18/15 documented as of this encounter
--- OUTSIDE RECORDS SUMMARY | 2024-12-25 14:58 | XMS_ITS | Encounter Summary ---
Author Organization [facility] Address [address] [address] Phone Care Team Providers Care Audit Mgr Name Role Phone Griffin Gerber Primary Care Provider [phone] Indu Wright MD Unavailable [phone] Jj Steele DO Unavailable [phone] Reason for Visit * Reason Comments Medication Refill Encounter Details Date Type Department Care Team (Late st Contact Info) Description 04/07/2021 Refill [facility] - General Surgery [facility] [address] [phone] Mack Dolan MD [address] [address] Medication Refill Social History Tobacco Use Types [...] on filedocumented in this encounter Care Teams Audit Mgr Relationship Specialty Start Date End Date Griffin Gerber PAC [address] [place] [address] PCP - General Physician Painter Interior Finish 05/18/15 Indu Wright MD [address] [place] [address] Consulting Physician General Surgery 05/18/15 Jj Steele DO [address] [place] [address] Gastroenterology 05/18/15 documented as of this encounter
[2024-12-25 15:36] LABS: Magnesium 2.1 mg/dL (1.6-2.3)
[2024-12-25] MEDS: LACTATED RINGERS 1,000 ML 999 ML IV CONT (15:57)
[2024-12-25] MEDS: ASPIRIN 81 MG CHEWABLE TABLET 324 MG PO (15:57)
[2024-12-25 16:36] LABS: Troponin I < 0.012 ng/mL (0.000-0.034)
== END 2024-12-25 17:52 | disposition home or self-care (01) ==
PROVIDERS: Emergency Medicine; Emergency Provider Emergency Medicine; PCP Physician Assistant
DX: R00.1 Bradycardia, unspecified (principal); K21.9 Gastro-esophageal reflux disease without esophagitis; Z86.73 Personal history of transient ischemic attack (TIA), and cerebral infarction without residual deficits
CPT/HCPCS: 36415; 71046; 80053; 83690; 83735; 84484; 85025; 85610; 85730; 93005; 96360; 99284; A9270; J7120